=== PATIENT | female | born 1995 | race Caucasian/White ===

== ENCOUNTER 2021-01-18 11:49 | Outpatient (CLI) | payer OTHER, SELFPAY ==
[2021-01-18 12:04] LABS: Basophils Percent Auto 0.3 % (0.2-1.2); Eosinophils Absolute Auto 0.2 K/mm3 (0-0.3); Eosinophils Percent Auto 2.6 % (0-4.4); Hematocrit 40.5 % (37.0-47.0); Hemoglobin 12.5 g/dL (12.0-15.0); Immature Granulocyte Absolute 0.02 K/mm3 (0.00-0.031); Immature Granulocyte Percent A 0.2 % (0-0.5); Lymphocytes Absolute Auto 1.96 K/mm3 (0.9-3.2); Lymphocytes Percent Auto 22.3 % (18.3-44.2); Mean Corpuscular HGB Conc 30.9 g/dl (32-36); Mean Corpuscular Hemoglobin 24.4 pg (26-34); Mean Corpuscular Volume 79.1 fl (80-100); Monocytes Absolute Auto 0.4 K/mm3 (0.1-0.6); Monocytes Percent Auto 4.8 % (2.6-8.5); Neutrophils Absolute Auto 6.1 K/mm3 (1.3-6.7); Neutrophils Percent Auto 69.8 % (45.5-73.1); Platelet Count Result 492 k/mm3 (150-375); Red Blood Count 5.12 M/mm3 (4.2-5.4); Red Cell Distribution Width 15.8 % (11.5-14.5); White Blood Count 8.8 K/mm3 (4.5-10.0)
[2021-01-18 14:33] LABS: Alanine Aminotransferase 40 U/L (4-35); Albumin Level 4.9 g/dL (3.5-5.1); Alkaline Phosphatase 54 U/L (38-126); Anion Gap 8 mmol/L (8-16); Aspartate Amino Transferase 33 U/L (14-36); Bilirubin,Total 0.3 mg/dL (0.2-1.3); Blood Urea Nitrogen 10 mg/dL (7-17); Calcium 9.8 mg/dL (8.4-10.2); Carbon Dioxide 27 mmol/L (22-30); Chloride 104 mmol/L (98-107); Estimated Glomerular Filt Rate > 60; Glucose 106 mg/dL (65-105); Iron 41 ug/dL (37-170); Lactate Dehydrogenase 421 U/L (313-618); Potassium 5.2 mmol/L (3.4-5.0); Sodium 139 mmol/L (137-145)
[2021-01-18 14:42] LABS: Percent Iron Saturation 8 % (20-50)
[2021-01-18 15:38] LABS: Folic Acid 4.9 ng/mL (2.76->20)
== END 2021-01-18 11:50 | disposition home or self-care (01) ==
LOC: ANHLAB 11:51
PROVIDERS: PCP Nurse Practitioner Family; Visit Provider Internal Medicine Hematology & Oncology
DX: D50.0 Iron deficiency anemia secondary to blood loss (chronic) (principal)
CPT/HCPCS: 36415; 80053; 82607; 82728; 82746; 83540; 83550; 83615; 85025

== ENCOUNTER 2021-02-08 22:29 | Emergency (ER) | payer OTHER, SELFPAY ==
--- NOTE | ~2021-02-08 | XR_ITS ---
EXAMINATION: XR chest 2V DATE: 02/08/2021 22:49 INDICATION: Midsternal chest pain. TECHNIQUE: Frontal and lateral views of the chest were obtained. COMPARISON: Chest 2 views 08/20/2019 FINDINGS: The chest demonstrates clear lungs without pneumonia, pleural effusion, or pneumothorax. Th e heart size is normal. IMPRESSION: 1. No acute cardiopulmonary disease. Reviewed, dictated and finalized at location A.
[2021-02-08 22:30] VITALS: BP 179/93; PULSE 80; RESP 20; TEMP 36.3; O2SAT 100
--- NOTE | 2021-02-08 22:34 | ECG_ITS ---
Measurements Intervals [place] Rate: 81 P: 19 MT: 152 QRS: 19 QRSD: 85 T: 19 QT: 352 QTc: 409 Interpretive Statements SINUS RHYTHM BASELINE ARTIFACT- I, I NORMAL ECG Electronically Signed On 02-09-2021 6:59:58 CDT by Yazan House D.O.
[2021-02-08 22:49] LABS: Basophils Percent Auto 0.4 % (0.2-1.2); Eosinophils Absolute Auto 0.3 K/mm3 (0-0.3); Eosinophils Percent Auto 2.6 % (0-4.4); Hematocrit 39.3 % (37.0-47.0); Hemoglobin 12.1 g/dL (12.0-15.0); Immature Granulocyte Absolute 0.04 K/mm3 (0.00-0.031); Immature Granulocyte Percent A 0.4 % (0-0.5); Lymphocytes Absolute Auto 3.64 K/mm3 (0.9-3.2); Mean Corpuscular HGB Conc 30.8 g/dl (32-36); Mean Corpuscular Hemoglobin 24.7 pg (26-34); Mean Corpuscular Volume 80.4 fl (80-100); Mean Platelet Volume 8.8 fl (7.4-10.4); Monocytes Absolute Auto 0.6 K/mm3 (0.1-0.6); Monocytes Percent Auto 6.2 % (2.6-8.5); Neutrophils Absolute Auto 5.2 K/mm3 (1.3-6.7); Neutrophils Percent Auto 53.4 % (45.5-73.1); Platelet Count Result 435 k/mm3 (150-375); Red Blood Count 4.89 M/mm3 (4.2-5.4); Red Cell Distribution Width 15.2 % (11.5-14.5); White Blood Count 9.8 K/mm3 (4.5-10.0)
[2021-02-08 22:59] LABS: Prothrombin Time 13.8 Seconds (11.1-14.7)
[2021-02-08 23:00] LABS: Anion Gap 6 mmol/L (8-16); Blood Urea Nitrogen 9 mg/dL (7-17); Calcium 9.2 mg/dL (8.4-10.2); Carbon Dioxide 30 mmol/L (22-30); Chloride 103 mmol/L (98-107); Estimated CRCL calculation 171 ml/min; Estimated Glomerular Filt Rate > 60; Glucose 92 mg/dL (65-105); Partial Thromboplastin Time 27.7 SECONDS (22.3-36.8); Potassium 3.7 mmol/L (3.4-5.0); Sodium 139 mmol/L (137-145)
[2021-02-08 23:12] LABS: Troponin I < 0.012 ng/mL (0.000-0.034)
[2021-02-08 23:20] VITALS: BP 155/80; PULSE 85; RESP 16; O2SAT 100
--- NOTE | 2021-02-08 23:47 | ED.GENADULT ---
HPI - General Adult General Chief complaint: Chest Pain <Arely Valdivia MD - Last Filed: 02/09/21 16:59> Stated complaint: chest pain/upper back/neck pain <Arely Valdivia MD - Last Filed: 02/09/21 16:59> Time Seen by Provider: 02/08/21 23:33 <Arely Valdivia MD - Last Filed: 02/09/21 16:59> Source: patient <Arely Valdivia MD - Last Filed: 02/09/21 16:59> History of Present Illness HPI narrative: Patient is a 26 y/o female complaining of mid sternal and right sided chest pain starting 5-6 hours ago. She describes her pain as a dull pain with occasional sharp sensation. There is some pain radiation to her right back. She rates her pain as 5/10. There is no alleviating or exacerbating factor. She has some nausea, but no vomiting. <Arely Valdivia MD - Last Filed: 02/09/21 16:59> Related Data Allergies/adverse reactions: Allergies Allergy/AdvReac Type Severity Reaction Status Date / Time sulfamethoxazole Allergy Intermediate BLISTERS Verified 02/08/21 22:43 IN MOUTH trimethoprim Allergy Intermediate BLISTERS Verified 02/08/21 22:43 IN MOUTH <Arely Valdivia MD - Last Filed: 02/09/21 16:59> Review of Systems Constitutional: Constitutional: Denies chills, Denies fever(s), Denies headache(s) and Denies weakness <Arely Valdivia MD - Last Filed: 02/09/21 16:59> Eyes: Eyes: Denies blurry vision <Arely Valdivia MD - Last Filed: 02/09/21 16:59> ENT: Denies headache(s) and Denies neck pain <Arely Valdivia MD - Last Filed: 02/09/21 16:59> Cardiovascular: Cardiovascular: Reports chest pain and Denies dyspnea <Arely Valdivia MD - Last Filed: 02/09/21 16:59> Respiratory: Respiratory: Denies cough and Denies dyspnea <Arely Valdivia MD - Last Filed: 02/09/21 16:59> Gastrointestinal: Gastrointestinal: Denies abdominal pain, Denies diarrhea, Reports nausea and Denies vomiting <Arely Valdivia MD - Last Filed: 02/09/21 16:59> Genitourinary: Genitourinary: Denies hematuria and Denies dysuria <Arely Valdivia MD - Last Filed: 02/09/21 16:59> Musculoskeletal: Musculoskeletal: Denies back pain and Denies neck pain <Arely Valdivia MD - Last Filed: 02/09/21 16:59> Neurologic: Denies headache(s) and Denies weakness <Arely Valdivia MD - Last Filed: 02/09/21 16:59> [facility] Past Medical History Medical History: Medical History Anemia receives iron infusions Anxiety Asthma Depression Prolapsed bladder UTI (urinary tract infection) <Arely Valdivia MD - Last Filed: 02/09/21 16:59> Surgical History Surgical History: Surgical History Delivery by section H/O dilation and curettage Hx of section Hx of tubal ligation <Arely Valdivia MD - Last Filed: 02/09/21 16:59> Social History Social History: Social History Smoking status: Never smoker Gender identity (if verbalized by the patient): Female <Arely Valdivai MD - Last Filed: 02/09/21 16:59> Exam Const: General: no acute distress and well developed <Arely Valdivia MD - Last Filed: 02/09/21 16:59> Orientation/consciousness: oriented to person, oriented to place, oriented to time and patient oriented x3 <Arely Valdivia MD - Last Filed: 02/09/21 16:59> HENMT: Head: normocephalic <Arely Valdivia MD - Last Filed: 02/09/21 16:59> Ears: external ears normal <Arely Valdivia MD - Last Filed: 02/09/21 16:59> General nose exam: Normal external nose present <Arely Valdivia MD - Last Filed: 02/09/21 16:59> Eyes: General: appearance normal, both eyes and all related structures <Arely Valdivia MD - Last Filed: 02/09/21 16:59> Conjunctivae: conjunctivae normal <Arely Valdivia MD - Last Filed: 02/09/21 16:59> Neck: Neck: normal visual inspection and full ROM <Arely Valdivia MD - Last Filed: 02/09/21 16:59> Chest: Chest palpation & inspection: pia
[2021-02-09 00:43] LABS: D Dimer < 0.22 ug/mL (<0.48)
[2021-02-09 01:21] LABS: Add Urine Microscopic? NO; Appearance Urine Clear (Clear); Bilirubin Urine Negative (Negative); Blood Urine Negative (Negative); Color Urine Yellow (Yellow); Glucose Urine UA Negative (Negative); Ketones Urine Negative (Negative); Leukocyte Esterase Ur Negative LEU/UL (Negative); Nitrate Urine Negative (Negative); Protein Urine Negative (Negative); Urobilinogen Urine Negative mg/dL (<2.0)
[2021-02-09 01:49] VITALS: BP 135/77; PULSE 74; RESP 18; O2SAT 100
[2021-02-09 02:37] LABS: Troponin I < 0.012 ng/mL (0.000-0.034)
[2021-02-09 03:08] VITALS: BP 132/60; PULSE 74; RESP 16; O2SAT 100
== END 2021-02-09 03:07 | disposition home or self-care (01) ==
PROVIDERS: Emergency Medicine; Emergency Provider Emergency Medicine; PCP Nurse Practitioner Family
DX: R07.2 Precordial pain (principal); D64.9 Anemia, unspecified; J45.909 Unspecified asthma, uncomplicated; N81.10 Cystocele, unspecified; Z87.440 Personal history of urinary (tract) infections
CPT/HCPCS: 36415; 71046; 80048; 81003; 81025; 84484; 85025; 85380; 85610; 85730; 93005; 99284

== ENCOUNTER 2021-04-01 17:38 | Emergency (ER) | payer OTHER, SELFPAY ==
--- NOTE | ~2021-04-01 | XR_ITS ---
EXAMINATION: XR chest 1V portable DATE: 04/01/2021 18:38 INDICATION: Dizziness. Asthma. TECHNIQUE: A single frontal view of the chest was obtained. COMPARISON: Chest 2 views 02/08/2021, chest CT 08/20/2019 FINDINGS: The chest demonstrates clear lungs without pneumonia, pleural effusion, or pneumothorax. Th e heart size is normal. IMPRESSION: 1. No acute cardiopulmonary disease. Reviewed, dictated and finalized at location A.
[2021-04-01 17:40] VITALS: BP 182/99; PULSE 97; RESP 20; TEMP 37.3; O2SAT 100
[2021-04-01 18:07] VITALS: BP 182/120; PULSE 95; RESP 18; O2SAT 100
--- NOTE | 2021-04-01 18:22 | ECG_ITS ---
Measurements Intervals [place] Rate: 83 P: 0 ND: 140 QRS: 11 QRSD: 93 T: 5 QT: 334 QTc: 393 Interpretive Statements SINUS RHYTHM WITH SINUS ARRHYTHMIA VOLTAGE CRITERIA FOR LVH BORDERLINE T WAVE ABNORMALITY- INFERIOR LEADS BORDERLINE ECG Electronically Signed On 04-01-2021 20:10:31 CDT by Yazan House D.O.
[2021-04-01 18:28] VITALS: BP 163/91; PULSE 99; RESP 16; O2SAT 98
[2021-04-01] MEDS: LORazepam (*CRX) 0.5 MG TABLET 1 MG PO (18:35)
--- NOTE | 2021-04-01 18:56 | ED.GENADULT ---
HPI - General Adult General Chief complaint: Recheck/Abnormal Lab/Rx Stated complaint: htn Time Seen by Provider: 04/01/21 18:08 Source: patient, family and RN notes reviewed Mode of arrival: ambulatory Limitations: no limitations History of Present Illness HPI narrative: Patient is 26 years old white female came to the emergency room with her mother complaining of elevated blood pressure. Patient went for urologist today for bladder prolapse management, blood pressure was found to be elevated, patient left his office and went to her family physician and the blood pressure was running at 150/95 and was scheduled for follow-up tomorrow. Patient left his office and went to [facility] and check her blood pressure 4 times and the highest number was 190/100, call 911 and the ambulance took her to [facility], for the long waiting list patient got tired and came to [facility]. History of pelvic congestion syndrome, bladder prolapse, gestational hypertension. Patient also morbidly obese. Patient denies any fever, chills, nausea, vomiting, chest pain, shortness of breath, headache, lightheadedness or dizziness. Patient reports a lot of stress lately that she knew that she have pelvic congestion syndrome 1 week ago. Related Data Home Medications Medication Instructions Recorded Confirmed ferrous gluconate mg 04/01/21 Allergies Allergy/AdvReac Type Severity Reaction Status Date / Time sulfamethoxazole Allergy Intermediate BLISTERS Verified 04/01/21 18:06 IN MOUTH trimethoprim Allergy Intermediate BLISTERS Verified 04/01/21 18:06 IN MOUTH Review of Systems Review of Systems: Narrative: CONSTITUTIONAL: Denies fever, chills, or sweats. EYES: Denies visual changes, redness, or discharge. ENT: Denies rhinorrhea, congestion, sore throat, or otalgia. CARDIOVASCULAR: Denies chest pain, palpitations, or edema. RESPIRATORY: Denies cough or dyspnea. GASTROINTESTINAL: Denies abdominal pain, nausea, vomiting, or diarrhea. GENITOURINARY: Denies dysuria or hematuria. SKIN: Denies rash or itching. MUSCULOSKELETAL: Denies back pain, joint pain, or myalgia. NEUROLOGIC: Denies headache, numbness, or weakness. PSYCHIATRIC: Denies anxiety or depression. [facility] Past Medical History Medical History Anemia receives iron infusions Anxiety Asthma Depression Prolapsed bladder UTI (urinary tract infection) Surgical History Surgical History Delivery by section H/O dilation and curettage Hx of section Hx of tubal ligation Social History Social History Smoking status: Never smoker Gender identity (if verbalized by the patient): Female Exam Narrative: Exam Narrative: General appearance: Well-developed, well-nourished, morbidly obese Skin: Normal color Head: Normocephalic, nontraumatic Eyes: Clear conjunctiva ENT: Oropharynx normal, ears normal, nose normal Neck: Supple, nontender Chest and respiratory: Airway patent, no respiratory distress, no accessory muscle use Heart: Regular rate/rhythm Abdomen: Soft, nontender, no organomegaly, quiet bowel sounds Vascular: Normal peripheral pulses, normal capillary refill. Musculoskeletal: Normal range of motion, nontender back Neurologic: Alert and oriented ?3, [employer] is normal as tested, no gross motor deficit Course Course Emergency Course: Stable Vital Signs Vital signs: Vital Signs Temperature 37.3 C 04/01/21 17:40 Pulse Rate 97 04/01/21 17:40 Respiratory Rate 20 04/01/21 17:40 Blood Pressure 182/99 H 04/01/21 1
[2021-04-01 19:03] LABS: Basophils Percent Auto 0.2 % (0.2-1.2); Eosinophils Absolute Auto 0.1 K/mm3 (0-0.3); Eosinophils Percent Auto 0.5 % (0-4.4); Hemoglobin 12.3 g/dL (12.0-15.0); Immature Granulocyte Absolute 0.03 K/mm3 (0.00-0.031); Immature Granulocyte Percent A 0.2 % (0-0.5); Lymphocytes Absolute Auto 1.85 K/mm3 (0.9-3.2); Lymphocytes Percent Auto 15.3 % (18.3-44.2); Mean Corpuscular HGB Conc 31.5 g/dl (32-36); Mean Corpuscular Hemoglobin 25.2 pg (26-34); Mean Corpuscular Volume 79.9 fl (80-100); Mean Platelet Volume 9.2 fl (7.4-10.4); Monocytes Absolute Auto 0.4 K/mm3 (0.1-0.6); Monocytes Percent Auto 3.1 % (2.6-8.5); Neutrophils Absolute Auto 9.8 K/mm3 (1.3-6.7); Neutrophils Percent Auto 80.7 % (45.5-73.1); Platelet Count Result 500 k/mm3 (150-375); Red Blood Count 4.88 M/mm3 (4.2-5.4); Red Cell Distribution Width 14.7 % (11.5-14.5); White Blood Count 12.1 K/mm3 (4.5-10.0)
[2021-04-01 19:13] LABS: Alanine Aminotransferase 43 U/L (4-35); Albumin Level 4.8 g/dL (3.5-5.1); Alkaline Phosphatase 52 U/L (38-126); Anion Gap 10 mmol/L (8-16); Aspartate Amino Transferase 39 U/L (14-36); Bilirubin,Total 0.4 mg/dL (0.2-1.3); Blood Urea Nitrogen 8 mg/dL (7-17); Calcium 9.7 mg/dL (8.4-10.2); Carbon Dioxide 25 mmol/L (22-30); Chloride 104 mmol/L (98-107); Estimated CRCL calculation 147 ml/min; Estimated Glomerular Filt Rate > 60; Glucose 105 mg/dL (65-105); Sodium 139 mmol/L (137-145)
[2021-04-01 19:20] LABS: Add Urine Microscopic? NO; Appearance Urine Clear (Clear); Bilirubin Urine Negative (Negative); Blood Urine Negative (Negative); Color Urine Straw (Yellow); Glucose Urine UA Negative (Negative); Ketones Urine Negative (Negative); Leukocyte Esterase Ur Negative LEU/UL (Negative); Mucus Urine Rare /lpf; Nitrate Urine Negative (Negative); Protein Urine Negative (Negative); Specific Grav Ur 1.008 (1.001-1.035); Squamous Epithelial Cell Urine Moderate /hpf (Few); Urobilinogen Urine Negative mg/dL (<2.0); WBC Urine 0-3 /hpf
[2021-04-01 19:26] VITALS: BP 148/93; PULSE 100; RESP 18; O2SAT 99
[2021-04-01 21:14] VITALS: BP 145/78; PULSE 89; RESP 18; O2SAT 100
== END 2021-04-01 21:15 | disposition home or self-care (01) ==
PROVIDERS: Emergency Medicine; Emergency Provider Emergency Medicine; PCP Nurse Practitioner Family
DX: I10 Essential (primary) hypertension (principal)
CPT/HCPCS: 36415; 71045; 80053; 81003; 81025; 85025; 93005; 99283; A9270

== ENCOUNTER 2021-05-03 11:41 | Outpatient (CLI) | payer OTHER, SELFPAY ==
[2021-05-03 11:58] LABS: Basophils Percent Auto 0.2 % (0.2-1.2); Eosinophils Absolute Auto 0.2 K/mm3 (0-0.3); Eosinophils Percent Auto 1.9 % (0-4.4); Hematocrit 38.3 % (37.0-47.0); Hemoglobin 12.3 g/dL (12.0-15.0); Immature Granulocyte Absolute 0.03 K/mm3 (0.00-0.031); Immature Granulocyte Percent A 0.3 % (0-0.5); Lymphocytes Absolute Auto 2.11 K/mm3 (0.9-3.2); Lymphocytes Percent Auto 21.5 % (18.3-44.2); Mean Corpuscular HGB Conc 32.1 g/dl (32-36); Mean Corpuscular Hemoglobin 25.5 pg (26-34); Mean Corpuscular Volume 79.3 fl (80-100); Monocytes Absolute Auto 0.5 K/mm3 (0.1-0.6); Monocytes Percent Auto 5.1 % (2.6-8.5); Platelet Count Result 445 k/mm3 (150-375); Red Blood Count 4.83 M/mm3 (4.2-5.4); White Blood Count 9.8 K/mm3 (4.5-10.0)
[2021-05-03 13:52] LABS: Iron 34 ug/dL (37-170)
[2021-05-03 14:05] LABS: Percent Iron Saturation 7 % (20-50)
[2021-05-03 14:58] LABS: Folic Acid 6.5 ng/mL (2.76->20)
== END 2021-05-03 11:42 | disposition home or self-care (01) ==
PROVIDERS: PCP Nurse Practitioner Family; Visit Provider Internal Medicine Hematology & Oncology
DX: D50.0 Iron deficiency anemia secondary to blood loss (chronic) (principal)
CPT/HCPCS: 36415; 82607; 82728; 82746; 83540; 83550; 85025

== ENCOUNTER 2021-11-01 15:31 | Outpatient (CLI) | payer OTHER, SELFPAY ==
[2021-11-01 15:57] LABS: Basophils Percent Auto 0.2 % (0.2-1.2); Eosinophils Absolute Auto 0.2 K/mm3 (0-0.3); Eosinophils Percent Auto 2.2 % (0-4.4); Hematocrit 37.4 % (37.0-47.0); Hemoglobin 11.3 g/dL (12.0-15.0); Immature Granulocyte Absolute 0.02 K/mm3 (0.00-0.031); Immature Granulocyte Percent A 0.2 % (0-0.5); Lymphocytes Absolute Auto 1.92 K/mm3 (0.9-3.2); Lymphocytes Percent Auto 23.7 % (18.3-44.2); Mean Corpuscular HGB Conc 30.2 g/dl (32-36); Mean Corpuscular Hemoglobin 23.9 pg (26-34); Mean Corpuscular Volume 79.2 fl (80-100); Mean Platelet Volume 8.8 fl (7.4-10.4); Monocytes Absolute Auto 0.4 K/mm3 (0.1-0.6); Monocytes Percent Auto 5.4 % (2.6-8.5); Neutrophils Absolute Auto 5.5 K/mm3 (1.3-6.7); Neutrophils Percent Auto 68.3 % (45.5-73.1); Platelet Count Result 519 k/mm3 (150-375); Red Blood Count 4.72 M/mm3 (4.2-5.4); Red Cell Distribution Width 14.1 % (11.5-14.5); White Blood Count 8.1 K/mm3 (4.5-10.0)
[2021-11-01 16:21] LABS: Alanine Aminotransferase 30 U/L (4-35); Albumin Level 4.7 g/dL (3.5-5.1); Alkaline Phosphatase 60 U/L (38-126); Anion Gap 9 mmol/L (8-16); Aspartate Amino Transferase 28 U/L (14-36); Bilirubin,Total 0.3 mg/dL (0.2-1.3); Blood Urea Nitrogen 8 mg/dL (7-17); Calcium 9.6 mg/dL (8.4-10.2); Carbon Dioxide 25 mmol/L (22-30); Chloride 104 mmol/L (98-107); Estimated Glomerular Filt Rate > 60; Glucose 116 mg/dL (65-110); Lactate Dehydrogenase 344 U/L (313-618); Potassium 4.4 mmol/L (3.4-5.0); Sodium 138 mmol/L (137-145)
[2021-11-01 16:33] LABS: Iron 30 ug/dL (37-170)
[2021-11-01 16:44] LABS: Percent Iron Saturation 6 % (20-50)
[2021-11-01 17:10] LABS: Ferritin 8.03 ng/mL (6.24-137)
[2021-11-01 17:27] LABS: Folic Acid 9.5 ng/mL (2.76->20)
== END 2021-11-01 15:32 | disposition home or self-care (01) ==
LOC: ANHLAB 15:34
PROVIDERS: Visit Provider Internal Medicine Hematology & Oncology
DX: D50.0 Iron deficiency anemia secondary to blood loss (chronic) (principal)
CPT/HCPCS: 36415; 80053; 82607; 82728; 82746; 83540; 83550; 83615; 85025

== ENCOUNTER 2022-01-31 15:16 | Outpatient (CLI) | payer OTHER, SELFPAY ==
[2022-01-31 15:31] LABS: Basophils Percent Auto 0.2 % (0.2-1.2); Eosinophils Absolute Auto 0.4 K/mm3 (0-0.3); Eosinophils Percent Auto 3.5 % (0-4.4); Hematocrit 43.7 % (37.0-47.0); Hemoglobin 13.3 g/dL (12.0-15.0); Immature Granulocyte Absolute 0.03 K/mm3 (0.00-0.031); Immature Granulocyte Percent A 0.3 % (0-0.5); Lymphocytes Absolute Auto 2.27 K/mm3 (0.9-3.2); Lymphocytes Percent Auto 21.9 % (18.3-44.2); Mean Corpuscular HGB Conc 30.4 g/dl (32-36); Mean Corpuscular Hemoglobin 25.4 pg (26-34); Mean Corpuscular Volume 83.4 fl (80-100); Mean Platelet Volume 9.2 fl (7.4-10.4); Monocytes Absolute Auto 0.5 K/mm3 (0.1-0.6); Monocytes Percent Auto 4.3 % (2.6-8.5); Neutrophils Absolute Auto 7.3 K/mm3 (1.3-6.7); Neutrophils Percent Auto 69.8 % (45.5-73.1); Platelet Count Result 461 k/mm3 (150-375); Red Blood Count 5.24 M/mm3 (4.2-5.4); Red Cell Distribution Width 15.7 % (11.5-14.5); White Blood Count 10.4 K/mm3 (4.5-10.0)
[2022-01-31 16:39] LABS: Iron 62 ug/dL (37-170)
[2022-01-31 16:48] LABS: Percent Iron Saturation 14 % (20-50)
[2022-01-31 17:48] LABS: Folic Acid 6.9 ng/mL (2.76->20)
== END 2022-01-31 15:17 | disposition home or self-care (01) ==
LOC: ANHLAB 15:17
PROVIDERS: Visit Provider Internal Medicine Hematology & Oncology
DX: D50.0 Iron deficiency anemia secondary to blood loss (chronic) (principal)
CPT/HCPCS: 36415; 82607; 82728; 82746; 83540; 83550; 85025

== ENCOUNTER 2022-06-15 07:28 | Emergency (ER) | payer OTHER, SELFPAY ==
--- NOTE | ~2022-06-15 | CT_ITS ---
EXAMINATION: CT abdomen pelvis w con DATE: 06/15/2022 08:43 INDICATION: Lower abdominal pain and fever TECHNIQUE: Computed tomography (CT) of the abdomen and pelvis was performed with 100 mL Omnipaque-350 intravenous contrast. Automated exposure control and iterative reconstruction technique were employe d. The dose-length product was 1589.99 mGy-cm. COMPARISON: None FINDINGS: Lung bases are clear. Heart size is normal. No pericardial or pleural effusion. Diffuse hepatic steat osis with additional focal fat along the ligamentum teres. Gallbladder, pancreas, spleen, bilateral a drenal glands and kidneys are normal. Small fat-containing umbilical hernia. Bowels including the jackie endix are normal. 2.6 cm right adnexal cyst. There appear to be tubal ligation clips along the anteri or and posterior margins of the left side of the anteverted uterus. Bladder is normal. Possible murali loreta section scar along the anterior lower uterine segment. No free intraperitoneal gas or fluid. No p athologically enlarged abdominal or pelvic lymphadenopathy. IMPRESSION: 1. 2.6 cm right adnexal cyst. Of note there appears to be displacement of the right-sided tubal ligat ion clip which would reintroduce ectopic to a possible differential. 2. No other acute intra-abdominal/pelvic process. Specifically the appendix is normal. Reviewed, dictated and finalized at location A. IMPRESSION: 1. 2.6 cm right adnexal cyst. Of note there appears to be displacement of the r ight-sided tubal ligation clip which would reintroduce ectopic to a p ossible differential. 2. No other acute intra-abdominal/pelvic process. Specifically the appendix is normal.
[2022-06-15 07:43] VITALS: BP 150/87; PULSE 117; RESP 14; TEMP 38.3; O2SAT 96
--- NOTE | 2022-06-15 07:56 | ED.GENADULT ---
HPI - General Adult General Chief complaint: Abdominal Pain Stated complaint: High Fever, abd pressure, lower back hurts Time Seen by Provider: 06/15/22 07:30 History of Present Illness HPI narrative: 27-year-old female presenting to the emergency department for evaluation of lower back pain with associated lower abdominal pressure. Patient describes nausea as well. Patient did have a fever of 103 this morning took Tylenol and fever is 100.9 upon arrival to the emergency department. Patient denies any pain with urination but does describe increased pressure. Patient denies possibility of due to her fallopian tubes being tied. Patient denies any vaginal bleeding vaginal discharge. Related Data Home Medications Medication Instructions Recorded Confirmed ferrous gluconate 324 mg (38 mg mg 04/01/21 iron) tablet Allergies Allergy/AdvReac Type Severity Reaction Status Date / Time sulfamethoxazole Allergy Intermediate BLISTERS Verified 06/15/22 11:20 IN MOUTH trimethoprim Allergy Intermediate BLISTERS Verified 06/15/22 11:20 IN MOUTH Review of Systems Review of Systems: CONSTITUTIONAL: See HPI EYES: Denies visual changes, redness, or discharge. ENT: Denies rhinorrhea, congestion, sore throat, or otalgia. CARDIOVASCULAR: Denies chest pain, palpitations, or edema. RESPIRATORY: Denies cough or dyspnea. GASTROINTESTINAL: Low back pain, lower abdominal pressure GENITOURINARY: Denies dysuria or hematuria. SKIN: Denies rash or itching. MUSCULOSKELETAL: Denies back pain, joint pain, or myalgia. NEUROLOGIC: Denies headache, numbness, or weakness. [facility] Past Medical History Medical History Anemia receives iron infusions Anxiety Asthma Depression Prolapsed bladder UTI (urinary tract infection) Surgical History Surgical History Delivery by section H/O dilation and curettage Hx of section Hx of tubal ligation Social History Social History (System 06/15/22 @ 11:20 by Valencia Youngblood) Smoking status: Never smoker Gender identity (if verbalized by the patient): Female Exam Narrative: APPEARANCE: Well appearing, no pain, no distress, well-nourished. HEAD: normocephalic, atraumatic. EYES: PERRLA/EOMI, conjunctivae clear. NOSE: Normal no drainage NECK: Supple. No adenopathy, no masses. RESPIRATORY: Airway patent, respirations nonlabored. Clear to auscultation bilaterally, no rales, rhonchi, wheezing. CARDIOVASCULAR: Regular rate and rhythm without murmurs rubs or gallops. ABDOMINAL: Soft, lower abdominal tenderness, nondistended, normal bowel sounds MUSCULOSKELETAL: Moves all extremities. Strength/ROM intact, No edema, No calf tenderness. NEURO: Alert. Cranial nerves II through XII intact. Grossly intact SKIN: Warm, dry. Normal Color Course Course Emergency Course: Patient did test positive for COVID. Patient does feel improved with treatment. Patient had incidental finding on a CT scan showing concern for placement of the fallopian tube clip. Patient was encouraged to follow-up with [facility] for this. Patient's test was negative today. Patient denies any shortness of breath. Patient did have a low-grade fever but no leukocytosis. Patient did have some lymphopenia. No significant abnormalities on the CMP. UA showed no evidence of urinary tract infection. Patient's COVID test was positive. Vital Signs Vital signs: Vital Signs Temperature 100.9 F H 06/15/22 07:43 Pulse Rate 117 H 06/15/22 07:43 Respiratory Rate 14 06/15/22 07:43 Blood Pressure 150/87 H 06/15/22 07:43 Pulse Oximetry 96 06/15/22 07:43 Oxygen Delivery Room Air 06/15/22 07:43 Temperature 100.9 F H 06/15/22 07:43 Pulse Rate 110 H 06/15/22 10:00 Respiratory Rate 16 06/15/22 10:00 Blood Pressure 135/91 H 06/15/22 10:00 Pulse Oximetry 98 06/15/22 10:00 Oxyge
[2022-06-15 08:03] LABS: Appearance Urine Clear (Clear); Bilirubin Urine Negative (Negative); Blood Urine Negative (Negative); Color Urine Yellow (Yellow); Glucose Urine UA Negative (Negative); Ketones Urine Negative (Negative); Leukocyte Esterase Ur Negative LEU/UL (Negative); Nitrate Urine Negative (Negative); Protein Urine Negative (Negative); Specific Grav Ur 1.015 (1.001-1.035); Urobilinogen Urine 0.2 mg/dL (<2.0); pH Urine 8.5 (5.0-9.0)
[2022-06-15 08:09] LABS: Add Urine Microscopic? NO
[2022-06-15 08:13] LABS: Basophils Percent Auto 0.2 % (0.2-1.2); Eosinophils Absolute Auto 0.1 K/mm3 (0-0.3); Eosinophils Percent Auto 1.5 % (0-4.4); Hematocrit 37.9 % (37.0-47.0); Hemoglobin 12.2 g/dL (12.0-15.0); Immature Granulocyte Absolute 0.02 K/mm3 (0.00-0.031); Immature Granulocyte Percent A 0.3 % (0-0.5); Lymphocytes Percent Auto 6.7 % (18.3-44.2); Mean Corpuscular HGB Conc 32.2 g/dl (32-36); Mean Corpuscular Hemoglobin 27.2 pg (26-34); Mean Corpuscular Volume 84.4 fl (80-100); Mean Platelet Volume 9.1 fl (7.4-10.4); Monocytes Absolute Auto 0.5 K/mm3 (0.1-0.6); Monocytes Percent Auto 7.5 % (2.6-8.5); Neutrophils Percent Auto 83.8 % (45.5-73.1); Platelet Count Result 353 k/mm3 (150-375); Red Blood Count 4.49 M/mm3 (4.2-5.4); Red Cell Distribution Width 13.4 % (11.5-14.5)
[2022-06-15 08:22] LABS: Alanine Aminotransferase 45 U/L (6-35); Albumin Level 4.7 g/dL (3.5-5.1); Alkaline Phosphatase 50 U/L (38-126); Anion Gap 11 mmol/L (8-16); Aspartate Amino Transferase 36 U/L (14-36); Bilirubin,Total 0.6 mg/dL (0.2-1.3); Blood Urea Nitrogen 6 mg/dL (7-17); Carbon Dioxide 24 mmol/L (22-30); Chloride 102 mmol/L (98-107); Estimated CRCL calculation 140 ml/min; Estimated Glomerular Filt Rate > 60; Glucose 108 mg/dL (65-110); Lipase 20 U/L (23-300); Potassium 3.8 mmol/L (3.4-5.0); Sodium 137 mmol/L (137-145)
[2022-06-15 08:25] VITALS: BP 133/71; PULSE 110; RESP 19; O2SAT 97
[2022-06-15] MEDS: HYDROmorphone HCL INJ (*CRX) 1 MG/ML SYR 0.5 MG IV PUSH (08:25)
[2022-06-15] MEDS: SODIUM CHLORIDE 0.9% IV 1,000 ML 999 ML IV CONT (08:26)
[2022-06-15] MEDS: ONDANSETRON INJ 4 MG/2 ML VIAL IV PUSH (08:26)
[2022-06-15 08:31] VITALS: BP 143/74; PULSE 109; RESP 16; O2SAT 94
[2022-06-15 08:38] LABS: SPREG INTERNAL CONTROL Positive; Serum Qual hCG Negative
[2022-06-15 09:00] LABS: SARS-CoV-2 RNA PCR Positive
[2022-06-15 10:00] VITALS: BP 135/91; PULSE 110; RESP 16; O2SAT 98
== END 2022-06-15 10:00 | disposition home or self-care (01) ==
PROVIDERS: Emergency Medicine; Emergency Provider Emergency Medicine; PCP Nurse Practitioner Family
DX: U07.1 COVID-19 (principal); R10.30 Lower abdominal pain, unspecified; D64.9 Anemia, unspecified; J45.909 Unspecified asthma, uncomplicated; Z87.440 Personal history of urinary (tract) infections
CPT/HCPCS: 36415; 74177; 80053; 81003; 81025; 83690; 84703; 85025; 96361; 96374; 96375; 99284; C9803; J1170; J2405; J7030; Q9967; U0003; U0005

== ENCOUNTER 2022-07-14 12:43 | Outpatient (CLI) | payer OTHER, SELFPAY ==
[2022-07-14 13:07] LABS: Basophils Percent Auto 0.4 % (0.2-1.2); Eosinophils Absolute Auto 0.1 K/mm3 (0-0.3); Eosinophils Percent Auto 2.9 % (0-4.4); Hematocrit 35.1 % (37.0-47.0); Immature Granulocyte Absolute 0.01 K/mm3 (0.00-0.031); Immature Granulocyte Percent A 0.2 % (0-0.5); Lymphocytes Absolute Auto 1.84 K/mm3 (0.9-3.2); Lymphocytes Percent Auto 37.7 % (18.3-44.2); Mean Corpuscular HGB Conc 31.3 g/dl (32-36); Mean Corpuscular Hemoglobin 26.6 pg (26-34); Mean Platelet Volume 9.4 fl (7.4-10.4); Monocytes Absolute Auto 0.4 K/mm3 (0.1-0.6); Monocytes Percent Auto 8.8 % (2.6-8.5); Neutrophils Absolute Auto 2.4 K/mm3 (1.3-6.7); Platelet Count Result 344 k/mm3 (150-375); Red Blood Count 4.13 M/mm3 (4.2-5.4); Red Cell Distribution Width 13.2 % (11.5-14.5); White Blood Count 4.9 K/mm3 (4.5-10.0)
[2022-07-14 14:55] LABS: Iron 41 ug/dL (37-170)
[2022-07-14 15:11] LABS: Percent Iron Saturation 9 % (20-50)
[2022-07-14 16:04] LABS: Folic Acid 6.8 ng/mL (2.76->20)
== END 2022-07-14 12:44 | disposition home or self-care (01) ==
LOC: ANHLAB 12:46
PROVIDERS: PCP Nurse Practitioner Family; Visit Provider Internal Medicine Hematology & Oncology
DX: D50.0 Iron deficiency anemia secondary to blood loss (chronic) (principal)
CPT/HCPCS: 36415; 82607; 82728; 82746; 83540; 83550; 85025

== ENCOUNTER 2022-12-19 10:34 | Emergency (ER) | payer OTHER, SELFPAY ==
--- NOTE | ~2022-12-19 | CT_ITS ---
EXAMINATION: CT abdomen pelvis wo con DATE: 12/19/2022 11:59 INDICATION: Left flank pain. Burning with urination. Nausea. TECHNIQUE: Computed tomography (CT) of the abdomen and pelvis was performed without intravenous contr ast. Automated exposure control and iterative reconstruction technique were employed. The dose-length product was 1631.49 mGy-cm. COMPARISON: 06/15/2022 and 05/03/2017 FINDINGS: Likely benign 3-4 mm pleural-based left lower lobe nodule unchanged since 05/03/2017. Heart size is no rmal. No pericardial or pleural effusion. Diffuse hepatic steatosis with focal sparing along the gall bladder fossa and more focal fat at the ligamentum teres. Gallbladder, spleen, pancreas, bilateral ad renal glands and right kidney are normal. 6 mm hyperdense proteinaceous/hemorrhagic cyst at the upper pole of the left kidney. No urolithiasis or hydronephrosis. There are a few small phleboliths in the pelvis. Small fat-containing umbilical hernia. Bowels including the appendix are normal. Bladder, an teverted uterus and left ovary are normal. 1.7 cm cyst/follicle in the right ovary. No interval coffman e in a likely tubal ligation clip along side the left ovary. Again seen is displacement of a second l ikely tubal ligation clip which on CT dated 2016 was located along side the right ovary which remains unchanged from the more recent CT, positioned along the left anterior margin of the uterine fundus. No free intraperitoneal gas or fluid. No pathologically enlarged abdominal or pelvic lymphadenopathy. Mild lumbar and mild to moderate lower thoracic spondylosis. IMPRESSION: 1. No urolithiasis or acute intra-abdominal/pelvic process. 2. Chronic displacement of a right tubal ligation clip. Left-sided tubal ligation clip remains in exp ected position. 3. Small fat-containing umbilical hernia. Reviewed, dictated and finalized at location B. IMPRESSION: 1. No urolithiasis or acute intra-abdominal/pelvic process. 2. Chronic displacement of a right tubal ligation clip. Left-sided tubal ligati on clip remains in expected position. 3. Small fat-containing umbilical hernia.
--- NOTE | ~2022-12-19 | XR_ITS ---
XR chest 2V DATE: 12/19/2022 12:13 INDICATION: Cough for one week TECHNIQUE: PA and lateral views COMPARISON: 04/01/2021 portable AP chest at 1836 hours FINDINGS: Normal heart size. No hilar or mediastinal enlargement. No pulmonary infiltrate or consolid ation, pleural effusion or pulmonary vascular congestion or pneumothorax. IMPRESSION: Negative Reviewed, dictated and finalized at location A. IMPRESSION: Negative
[2022-12-19 10:35] VITALS: BP 133/85; PULSE 98; RESP 18; TEMP 36.8; O2SAT 99
[2022-12-19 11:25] LABS: Basophils Percent Auto 0.4 % (0.2-1.2); Eosinophils Absolute Auto 0.1 K/mm3 (0-0.3); Eosinophils Percent Auto 1.7 % (0-4.4); Hematocrit 37.7 % (37.0-47.0); Hemoglobin 11.8 g/dL (12.0-15.0); Immature Granulocyte Absolute 0.02 K/mm3 (0.00-0.031); Immature Granulocyte Percent A 0.3 % (0-0.5); Lymphocytes Absolute Auto 1.71 K/mm3 (0.9-3.2); Lymphocytes Percent Auto 22.5 % (18.3-44.2); Mean Corpuscular HGB Conc 31.3 g/dl (32-36); Mean Corpuscular Hemoglobin 26.2 pg (26-34); Mean Corpuscular Volume 83.6 fl (80-100); Mean Platelet Volume 8.6 fl (7.4-10.4); Monocytes Absolute Auto 0.4 K/mm3 (0.1-0.6); Monocytes Percent Auto 4.7 % (2.6-8.5); Neutrophils Absolute Auto 5.4 K/mm3 (1.3-6.7); Neutrophils Percent Auto 70.4 % (45.5-73.1); Platelet Count Result 415 k/mm3 (150-375); Red Blood Count 4.51 M/mm3 (4.2-5.4); Red Cell Distribution Width 14.1 % (11.5-14.5); White Blood Count 7.6 K/mm3 (4.5-10.0)
[2022-12-19 11:42] LABS: Alanine Aminotransferase 29 U/L (6-35); Albumin Level 4.6 g/dL (3.5-5.1); Alkaline Phosphatase 45 U/L (38-126); Anion Gap 7 mmol/L (8-16); Aspartate Amino Transferase 29 U/L (14-36); Bilirubin,Total 0.5 mg/dL (0.2-1.3); Blood Urea Nitrogen 7 mg/dL (7-17); Carbon Dioxide 28 mmol/L (22-30); Chloride 104 mmol/L (98-107); Estimated CRCL calculation 182 ml/min; Estimated Glomerular Filt Rate > 60; Glucose 112 mg/dL (65-110); Potassium 3.9 mmol/L (3.4-5.0); Sodium 139 mmol/L (137-145)
[2022-12-19 11:43] LABS: Appearance Urine Cloudy (Clear); Bacteria Urine 2+ /hpf; Bilirubin Urine Negative (Negative); Blood Urine Negative (Negative); Color Urine Yellow (Yellow); Glucose Urine UA Negative (Negative); Ketones Urine Negative (Negative); Leukocyte Esterase Ur Trace LEU/UL (Negative); Mucus Urine Present /lpf; Nitrate Urine Negative (Negative); Non Pathogenic Casts 0-2; Protein Urine Negative (Negative); Specific Grav Ur 1.017 (1.001-1.035); Squamous Epithelial Cell Urine Moderate /hpf (Few); WBC Urine 0-5 /hpf
[2022-12-19 11:44] LABS: Add Urine Microscopic? YES
--- NOTE | 2022-12-19 11:45 | ED.FEMALEGU ---
HPI - Female Genitourinary General Chief complaint: Urogenital-Female Stated complaint: kidney infection? Time Seen by Provider: 12/19/22 10:51 Source: patient Mode of arrival: ambulatory Limitations: no limitations History of Present Illness HPI Narrative: Patient is a 27-year-old female who presents to the ED with report of left flank pain and dysuria. Patient reports having pain in her left flank region for the last 2 days, in addition to dysuria, urinary frequency, urinary urgency. Denies hematuria. She does also report having some nausea and discomfort in her left lower quadrant. Denies history of kidney stones. She does report history of UTI. Denies fever, vomiting, diarrhea, constipation. Patient mentions having a cough and congestion for the past 1 week. Symptoms are improving. Family members with similar symptoms. Tested negative for COVID. Related Data Home Medications Medication Instructions Recorded Confirmed ferrous gluconate 324 mg (38 mg mg 04/01/21 iron) tablet Allergies Allergy/AdvReac Type Severity Reaction Status Date / Time sulfamethoxazole Allergy Intermediate BLISTERS Verified 12/19/22 10:37 IN MOUTH trimethoprim Allergy Intermediate BLISTERS Verified 12/19/22 10:37 IN MOUTH Review of Systems Review of Systems: CONSTITUTIONAL: Denies fever, chills, or sweats. ENT: See HPI. CARDIOVASCULAR: Denies chest pain. RESPIRATORY: See HPI. GASTROINTESTINAL: See HPI. GENITOURINARY: See HPI. SKIN: Denies rash or itching. MUSCULOSKELETAL: See HPI. NEUROLOGIC: Denies headache, numbness, or weakness. All systems reviewed & are unremarkable except as noted in HPI and below PMFSH Past Medical History Medical History Anemia receives iron infusions Anxiety Asthma Depression Prolapsed bladder UTI (urinary tract infection) Surgical History Surgical History Delivery by section H/O dilation and curettage Hx of section Hx of tubal ligation Social History Social History Smoking status: Never smoker Gender identity (if verbalized by the patient): Female Exam Narrative: GENERAL: Well appearing, morbidly obese, non-toxic, in no acute distress. HEAD: Normocephalic, atraumatic. NECK: Supple. No adenopathy, no masses. RESPIRATORY: Airway patent, respirations nonlabored. Clear to auscultation bilaterally, no rales, rhonchi, wheezing. No focal lung sounds. CARDIOVASCULAR: Regular rate and rhythm without murmurs, rubs, or gallops. Radial pulses 2+ and equal bilaterally. ABDOMINAL: Soft, mild tenderness in left lower quadrant and to the left of suprapubic region. Nondistended, no hepatosplenomegaly. Normoactive BS. No significant CVA tenderness to percussion. MUSCULOSKELETAL: Moves all extremities. Strength/ROM intact without gross deformities. Tenderness to palpation in left lumbosacral region. No midline spinal tenderness. SKIN: Warm, dry, normal color. No rashes. NEURO: A&O X3. Speech clear. Cranial nerves II-XII grossly intact. Steady gait. No ataxic movements. PSYCHIATRIC: Appropriate mood and affect. Normal interaction. Course Vital Signs Vital signs: Vital Signs Temperature 98.2 F 12/19/22 10:35 Pulse Rate 98 12/19/22 10:35 Respiratory Rate 18 12/19/22 10:35 Blood Pressure 133/85 12/19/22 10:35 Pulse Oximetry 99 12/19/22 10:35 Temperature 97.5 F L 12/19/22 12:38 Pulse Rate 74 12/19/22 12:38 Respiratory Rate 16 12/19/22 12:38 Blood Pressure 135/86 12/19/22 12:38 Pulse Oximetry 100 12/19/22 12:38 MDM - Female Genitourinary MDM Narrative Medical decision making narrative: Patient presented to ED with 2-day history of left flank pain, urinary symptoms. Vitals stable upon arrival. CBC without leukocytosis. CMP unremarkable, stable kidne
--- NOTE | 2022-12-19 11:54 | PC.NURSE ---
Pt to CT scan/XRAY via w/c at this time.
[2022-12-19] MEDS: SODIUM CHLORIDE 0.9% IV 1,000 ML 999 ML IV CONT (12:03)
[2022-12-19 12:38] VITALS: BP 135/86; PULSE 74; RESP 16; TEMP 36.4; O2SAT 100
== END 2022-12-19 13:17 | disposition home or self-care (01) ==
PROVIDERS: Emergency Provider Physician Assistant; PCP Nurse Practitioner Family
DX: N30.01 Acute cystitis with hematuria (principal); D64.9 Anemia, unspecified; J45.909 Unspecified asthma, uncomplicated; N81.10 Cystocele, unspecified; K42.9 Umbilical hernia without obstruction or gangrene
CPT/HCPCS: 36415; 71046; 74176; 80053; 81001; 81025; 85025; 96360; 99284; J0131; J7030

== ENCOUNTER 2023-02-09 11:50 | Outpatient (CLI) | payer OTHER, SELFPAY ==
--- NOTE | ~2023-02-09 | US_ITS ---
EXAMINATION: US breast LT limited HISTORY: Palpable lump in the upper inner quadrant of the left breast TECHNIQUE: Limited left breast ultrasound was performed. FINDINGS: There is a 3 mm round, circumscribed, hypoechoic mass with no posterior features or interna l vascularity at the 10:00 location 13 cm from the nipple corresponding to the palpable abnormality o f concern. IMPRESSION: Probably benign left breast mass corresponding to the palpable abnormality of concern. Follow-up targ eted left breast ultrasound in six months is recommended. BI-RADS category 3, probably benign findings. Reviewed, dictated and finalized at location A. IMPRESSION: Probably benign left breast mass corresponding to the palpable abnormality of c oncern. Follow-up targeted left breast ultrasound in six months is recommended. BI-RADS category 3, probably benign findings.
== END 2023-02-09 11:51 | disposition home or self-care (01) ==
PROVIDERS: PCP Nurse Practitioner Family; Visit Provider Nurse Practitioner
DX: N63.20 Unspecified lump in the left breast, unspecified quadrant (principal); R92.8 Other abnormal and inconclusive findings on diagnostic imaging of breast
CPT/HCPCS: 76642

== ENCOUNTER 2023-04-08 03:52 | Emergency (ER) | payer OTHER, SELFPAY ==
--- NOTE | ~2023-04-08 | XR_ITS ---
EXAMINATION: XR chest 1V portable INDICATION: Cough TECHNIQUE: Portable AP chest at 0432 hours COMPARISON: 12/19/2022 FINDINGS: The lungs are free of acute opacities. No pleural effusion or pneumothorax. The cardiomedia stinal silhouette is normal. IMPRESSION: 1. No acute cardiopulmonary abnormality. Reviewed, dictated and finalized at location A.
[2023-04-08 03:55] VITALS: BP 154/70; PULSE 97; RESP 18; TEMP 36.8; O2SAT 98
--- NOTE | 2023-04-08 04:20 | ED.URI ---
HPI - URI/Sore Throat General Chief Complaint: Upper Respiratory Infection Stated Complaint: cough Time Seen by Provider: 04/08/23 04:04 History of Present Illness HPI Narrative: 28-year-old female with PMH of cardiomyopathy, anemia, presents with several days of cough, congestion, she states she woke up today because she was feeling some trouble catching her breath. She has no swelling or tenderness in her legs. She is quite anxious and wants to make sure everything is okay. Related Data Home Medications Medication Instructions Recorded Confirmed ferrous gluconate 324 mg (38 mg mg 04/01/21 01/30/23 iron) tablet loratadine 10 mg tablet (Claritin) 10 mg PO DAILY 01/30/23 01/30/23 Allergies Allergy/AdvReac Type Severity Reaction Status Date / Time sulfamethoxazole Allergy Intermediate BLISTERS Verified 01/30/23 11:16 IN MOUTH trimethoprim Allergy Intermediate BLISTERS Verified 01/30/23 11:16 IN MOUTH Review of Systems Review of Systems: CONST: No fever. HEENT: Nasal congestion C/V: Chest tightness RESP: Cough GI: No abdominal pain : No dysuria. M/S: No joint pain. SKIN: No rash. NEURO: [No headache or focal numbness or weakness] PSYCH: Anxious PMFSH Past Medical History Medical History Anemia receives iron infusions Anxiety Asthma Depression Prolapsed bladder UTI (urinary tract infection) Surgical History Surgical History Delivery by section H/O dilation and curettage Hx of section Hx of tubal ligation Social History Social History Smoking status: Never smoker Gender identity (if verbalized by the patient): Female Exam Narrative: EXAMINATION OF ORGAN SYSTEMS/BODY AREAS: Constitutional: Vital signs per nursing GENERAL:[No acute distress, non-toxic appearing.] HEAD: Normal with no signs of head trauma. EYES: EOMI, conjunctiva normal ENT: Hearing grossly intact LUNGS: Nonlabored breathing. End expiratory wheezing upper lung bell HEART: [Regular rate and rhythm] ABD: [Soft], nontender to palpation EXT: Normal range of motion, no lower extremity edema, swelling, tenderness palpation, negative Homans SKIN: [No rashes or lesions.] NEURO: [Alert and oriented x 3. No gross focal sensory or strength deficits.] PSYCH: Normal affect Course Vital Signs Vital signs: Vital Signs Temperature 98.2 F 04/08/23 03:55 Pulse Rate 97 04/08/23 03:55 Respiratory Rate 18 04/08/23 03:55 Blood Pressure 154/70 H 04/08/23 03:55 Pulse Oximetry 98 04/08/23 03:55 Oxygen Delivery Room Air 04/08/23 03:55 Temperature 98.2 F 04/08/23 03:55 Pulse Rate 96 04/08/23 05:40 Respiratory Rate 16 04/08/23 05:40 Blood Pressure 154/70 H 04/08/23 03:55 Pulse Oximetry 98 04/08/23 05:40 Oxygen Delivery Room Air 04/08/23 03:55 MDM - URI/Sore Throat MDM Narrative Medical decision making narrative: ED COURSE AND MEDICAL DECISION MAKING: This 28-year-old patient presents with symptoms most suggestive of viral upper respiratory tract infection. Lungs with some faint wheezing without any respiratory distress or accessory muscle use. Patient has anxiety and history of heart failure and anemia and would like to have blood work, which I do feel is reasonable. Labs within acceptable limits. She is PERC negative. Chest x-ray on my independent interpretation does not show any obvious large consolidations concerning for bacterial pneumonia. EKG - 12-Lead: Performed at 0523. Interpreted by me. [Sinus rhythm]. Rate 91. [Normal] axis. OH-interval [normal]. QRS duration [normal]. QTc [normal]. [No ST segment elevation or depression]. [T-wave normal]. Impression: No EKG evidence of acute ischemia or dysrhythmia. On reevaluation, she is improved and [facility]
[2023-04-08 04:26] LABS: Basophils Percent Auto 0.3 % (0.2-1.2); Eosinophils Absolute Auto 0.1 K/mm3 (0-0.3); Eosinophils Percent Auto 1.8 % (0-4.4); Hematocrit 39.4 % (37.0-47.0); Hemoglobin 12.5 g/dL (12.0-15.0); Immature Granulocyte Absolute 0.02 K/mm3 (0.00-0.031); Immature Granulocyte Percent A 0.3 % (0-0.5); Lymphocytes Percent Auto 16.5 % (18.3-44.2); Mean Corpuscular HGB Conc 31.7 g/dl (32-36); Mean Corpuscular Hemoglobin 26.7 pg (26-34); Monocytes Absolute Auto 0.5 K/mm3 (0.1-0.6); Monocytes Percent Auto 6.8 % (2.6-8.5); Neutrophils Percent Auto 74.3 % (45.5-73.1); Platelet Count Result 333 k/mm3 (150-375); Red Blood Count 4.69 M/mm3 (4.2-5.4); Red Cell Distribution Width 14.1 % (11.5-14.5); White Blood Count 6.7 K/mm3 (4.5-10.0)
[2023-04-08 04:48] LABS: NT Pro B Type Natriuretic Pept < 20 pg/mL (19.9-100)
[2023-04-08 05:02] LABS: Influenza A QL RT-PCR Negative (Negative); Influenza B QL RT-PCR Negative (Negative); RSV RNA, RT-PCR Negative (Negative); SARS-CoV-2 RNA PCR Negative (Negative)
[2023-04-08 05:09] LABS: Alanine Aminotransferase 32 U/L (6-35); Albumin Level 4.6 g/dL (3.5-5.1); Alkaline Phosphatase 61 U/L (38-126); Anion Gap 10 mmol/L (8-16); Aspartate Amino Transferase 32 U/L (14-36); Bilirubin,Total 0.5 mg/dL (0.2-1.3); Blood Urea Nitrogen 8 mg/dL (7-17); Calcium 9.5 mg/dL (8.4-10.2); Carbon Dioxide 28 mmol/L (22-30); Chloride 103 mmol/L (98-107); Estimated CRCL calculation 151 ml/min; Estimated Glomerular Filt Rate > 60; Glucose 113 mg/dL (65-110); Lipase 44 U/L (23-300); Potassium 4.1 mmol/L (3.4-5.0); Sodium 141 mmol/L (137-145)
--- NOTE | 2023-04-08 05:12 | ECG_ITS ---
Measurements Intervals [place] Rate: 91 P: 19 ID: 164 QRS: 27 QRSD: 89 T: 16 QT: 327 QTc: 403 Interpretive Statements SINUS RHYTHM NORMAL ECG NO PREVIOUS ECG AVAILABLE FOR COMPARISON Electronically Signed On 04-08-2023 7:30:46 CDT by Yazan House D.O.
[2023-04-08 05:40] VITALS: PULSE 96; RESP 16; O2SAT 98
== END 2023-04-08 05:40 | disposition home or self-care (01) ==
PROVIDERS: Emergency Provider Emergency Medicine; PCP Nurse Practitioner Family
DX: J20.9 Acute bronchitis, unspecified (principal); J06.9 Acute upper respiratory infection, unspecified; Z20.822 Contact with and (suspected) exposure to COVID-19; J45.909 Unspecified asthma, uncomplicated; N81.10 Cystocele, unspecified; D50.9 Iron deficiency anemia, unspecified; Z87.440 Personal history of urinary (tract) infections
CPT/HCPCS: 36415; 71045; 80053; 83690; 83880; 84484; 85025; 87637; 93005; 99284

== ENCOUNTER 2023-08-23 01:07 | Emergency (ER) | payer OTHER, SELFPAY ==
--- NOTE | ~2023-08-23 | XR_ITS ---
Clinical Indication: Chest pain PA and lateral views of the chest: Comparison: 04/08/2023 Findings: The lungs are clear, without evidence of focal consolidation or pleural effusion. Cardiome diastinal silhouette is within normal limits. Bones and soft tissues are unremarkable. Impression: Normal chest. Reviewed, dictated and finalized at location . [employer] Impression: Normal chest.
--- NOTE | 2023-08-23 01:09 | ECG_ITS ---
Measurements Intervals [place] Rate: 84 P: 21 IA: 155 QRS: 27 QRSD: 102 T: 22 QT: 353 QTc: 419 Interpretive Statements SINUS RHYTHM NORMAL ECG COMPARED TO ECG 04/01/2021 18:45:14 NO SIGNIFICANT CHANGES Electronically Signed On 08-23-2023 6:21:27 MILANESE KNITTING MACHINE OPERATOR by Yazan House D.O.
[2023-08-23 01:28] VITALS: BP 136/68; PULSE 76; RESP 17; TEMP 36.1; O2SAT 100
[2023-08-23 01:31] LABS: Basophils Percent Auto 0.2 % (0.2-1.2); Eosinophils Absolute Auto 0.3 K/mm3 (0-0.3); Eosinophils Percent Auto 3.1 % (0-4.4); Hematocrit 36.3 % (37.0-47.0); Immature Granulocyte Absolute 0.02 K/mm3 (0.00-0.031); Immature Granulocyte Percent A 0.2 % (0-0.5); Lymphocytes Absolute Auto 3.21 K/mm3 (0.9-3.2); Lymphocytes Percent Auto 39.3 % (18.3-44.2); Mean Corpuscular HGB Conc 30.3 g/dl (32-36); Mean Corpuscular Hemoglobin 25.5 pg (26-34); Mean Corpuscular Volume 84.2 fl (80-100); Monocytes Absolute Auto 0.6 K/mm3 (0.1-0.6); Neutrophils Absolute Auto 4.1 K/mm3 (1.3-6.7); Neutrophils Percent Auto 50.2 % (45.5-73.1); Platelet Count Result 395 k/mm3 (150-375); Red Blood Count 4.31 M/mm3 (4.2-5.4); Red Cell Distribution Width 15.2 % (11.5-14.5); White Blood Count 8.2 K/mm3 (4.5-10.0)
[2023-08-23 01:43] LABS: Partial Thromboplastin Time 27.3 SECONDS (22.3-36.8); Prothrombin Time 13.3 Seconds (11.1-14.7)
[2023-08-23 01:46] LABS: Alanine Aminotransferase 37 U/L (6-35); Albumin Level 4.7 g/dL (3.5-5.1); Alkaline Phosphatase 49 U/L (38-126); Anion Gap 11 mmol/L (8-16); Aspartate Amino Transferase 30 U/L (14-36); Bilirubin,Total 0.4 mg/dL (0.2-1.3); Blood Urea Nitrogen 10 mg/dL (7-17); Calcium 9.2 mg/dL (8.4-10.2); Carbon Dioxide 26 mmol/L (22-30); Chloride 102 mmol/L (98-107); Estimated CRCL calculation 153 ml/min; Estimated Glomerular Filt Rate > 60; Glucose 145 mg/dL (65-110); Lipase 43 U/L (23-300); Potassium 3.9 mmol/L (3.4-5.0); Sodium 139 mmol/L (137-145)
[2023-08-23 01:57] LABS: Troponin I < 0.012 ng/mL (0.000-0.034)
[2023-08-23 05:58] LABS: Troponin I < 0.012 ng/mL (0.000-0.034)
[2023-08-23 06:34] VITALS: BP 141/82; PULSE 77; RESP 15; O2SAT 100
[2023-08-23 06:35] VITALS: PULSE 80
[2023-08-23 07:40] VITALS: BP 144/94; PULSE 79; RESP 17; O2SAT 98
[2023-08-23] MEDS: KETOROLAC 30 MG/ML VIAL (*BKC) IV PUSH (07:41)
[2023-08-23 08:08] LABS: Troponin I < 0.012 ng/mL (0.000-0.034)
--- NOTE | 2023-08-23 08:20 | ED.CHESTPAIN ---
HPI - Chest Pain General Chief Complaint: Chest Pain Stated Complaint: chest pain, dizziness Time Seen by Provider: 08/23/23 06:57 History of Present Illness HPI narrative: Patient is a 28-year-old female who presents ER with left-sided chest pain. Sudden onset overnight. Aching. Rates left side and shoulder. Worse with physical movement. No dyspnea. No productive cough. No hemoptysis. Denies alleviating factors. No cardiac history. Related Data Home Medications Medication Instructions Recorded Confirmed ferrous gluconate 324 mg (38 mg mg 04/01/21 01/30/23 iron) tablet loratadine 10 mg tablet (Claritin) 10 mg PO DAILY 01/30/23 05/29/23 Allergies Allergy/AdvReac Type Severity Reaction Status Date / Time sulfamethoxazole Allergy Intermediate BLISTERS Verified 05/29/23 14:03 IN MOUTH trimethoprim Allergy Intermediate BLISTERS Verified 05/29/23 14:03 IN MOUTH Review of Systems Review of Systems: All systems reviewed & are unremarkable except as noted in HPI and below Constitutional: Constitutional: Reports no additional constitutional complaints ENT: Reports system reviewed and no additional complaints, except as documented Cardiovascular: Cardiovascular: Reports chest pain, Denies rapid heart rate, Reports radiating jaw, neck or arm pain and Denies slow heart rate Respiratory: Respiratory: Reports no additional respiratory complaints Gastrointestinal: Gastrointestinal: Reports no additional gastrointestinal complaints Genitourinary: Genitourinary: Reports no additional female genitourinary complaints [facility] Past Medical History Medical History Anemia receives iron infusions Anxiety Asthma Depression Prolapsed bladder UTI (urinary tract infection) Surgical History Surgical History Delivery by section H/O dilation and curettage Hx of section Hx of tubal ligation Social History Social History (Updated 05/29/23 @ 14:05 by Sanjana Ceballos CMA) Smoking status: Never smoker Lack of Transportation: No Lack of Food: Never True Current Housing: I Have Housing Concerned About Future Housing: No Difficulty Paying Gas/Electric Bills: No Difficulty Paying for Meds: No Currently Unemployed: No Education: Trade/Vocational Certificate Difficulty w/ Childcare or Family Care: No Gender identity (if verbalized by the patient): Female Exam Narrative: GENERAL: Well-appearing, well-nourished, and in no acute distress. HEAD: Normocephalic, atraumatic. ENT: Mucous membranes moist. NECK: Supple. CHEST: Clear to auscultation. No respiratory distress. Mild discomfort with palpation of the left chest wall. HEART: Regular rate and rhythm. Normal peripheral pulses. ABDOMEN: Soft, nontender, nondistended. EXTREMITIES: Normal range of motion. No edema. NEURO: Alert and oriented x3. PSYCH: Normal mood and affect. Course Course Emergency Course: Patient resting comfortably. Troponin negative x3. EKG normal. Toradol for pain. Discharged home. Vital Signs Vital signs: Vital Signs Temperature 97 F L 08/23/23 01:28 Pulse Rate 76 08/23/23 01:28 Respiratory Rate 17 08/23/23 01:28 Blood Pressure 136/68 08/23/23 01:28 Pulse Oximetry 100 08/23/23 01:28 Oxygen Delivery Room Air 08/23/23 01:28 Temperature 97 F L 08/23/23 01:28 Pulse Rate 79 08/23/23 07:40 Respiratory Rate 17 08/23/23 07:40 Blood Pressure 144/94 H 08/23/23 07:40 Pulse Oximetry 98 08/23/23 07:40 Oxygen Delivery Room Air 08/23/23 01:28 MDM - Chest Pain Lab Data 08/23/23 01:25 08/23/23 01:25 Labs: Lab Results 08/23/23 08/23/23 08/23/23 Range/Units 01:25 05:22 07:42 WBC 8.2 (4.5-10.0) K/mm3 RBC 4.31 (4.2-5.4) M/mm3 Hgb 11.0 L (12.0-15.0) g/dL Hct 36.3 L (37.0-47.
[2023-08-23 08:42] VITALS: BP 133/81; PULSE 68; RESP 19; O2SAT 98
== END 2023-08-23 08:44 | disposition home or self-care (01) ==
PROVIDERS: Emergency Medicine; Emergency Provider Emergency Medicine; PCP Nurse Practitioner Family
DX: R07.9 Chest pain, unspecified (principal); D64.9 Anemia, unspecified; F32.A Depression, unspecified; Z87.440 Personal history of urinary (tract) infections
CPT/HCPCS: 36415; 71046; 80053; 83690; 84484; 85025; 85610; 85730; 93005; 96374; 99284; J1885

== ENCOUNTER → 2023-10-12 13:42 | Outpatient (CLI) | payer BC, MEDICAID, SELFPAY ==
--- NOTE | ~2023-10-12 | MR_ITS ---
EXAMINATION: MR thoracic spine wo con DATE: 10/12/2023 14:24 INDICATION: Chronic mid to low back pain. Radiculopathy, thoracic region. TECHNIQUE: Magnetic resonance imaging (MRI) of the thoracic spine was performed without intravenous c ontrast. COMPARISON: None FINDINGS: There is 3 degrees levocurvature of thoracic spine. There is mild chronic anterior wedging of T6-T8 vertebral bodies. There are hemangiomas in T7, T8, and T9 vertebral bodies. There is mildly decreased disc height from T6-T7 through T8-T9. There is multilevel facet joint osteoarthritis, sever e on the right and T4-T5 and on the left at T5-T6. On the right, there is mild neural foraminal steno sis at T4-T5. On the left, there is mild neural foraminal stenosis at T5-T6. At T2-T3, there is a rig ht central protrusion with mild central canal stenosis. At T3-T4, there is a central protrusion with mild central canal stenosis. At T6-T7, there is a central protrusion with mild central canal stenosis . At T7-T8, there is a right central extrusion with mild central canal stenosis and ventral indentati on of the spinal cord. At T8-T9, there is a central extrusion with mild central canal stenosis and ve ntral indentation of the spinal cord. At T9-T10, there is a right central protrusion with mild centra l canal stenosis. At T11-T12, there is a central protrusion with mild central canal stenosis. IMPRESSION: 1. Mild thoracic spondylosis. Reviewed, dictated and finalized at location E. ITIES MANAGER
--- NOTE | ~2023-10-12 | MR_ITS ---
EXAMINATION: MR lumbar spine wo con DATE: 10/12/2023 14:28 INDICATION: Radiculopathy, lumbar region. TECHNIQUE: Magnetic resonance imaging (MRI) of the lumbar spine was performed without intravenous con trast. Sequences included sagittal T2-weighted FSE, sagittal T2-weighted FS FSE, sagittal T1-weighted FSE, and axial T2-weighted FSE. COMPARISON: None FINDINGS: Bone alignment is normal. There is mild chronic anterior wedging of T11 vertebral body. The re are Schmorl's nodes at multiple levels. There is mildly decreased disc height at L4-L5. The distal spinal cord signal intensity is normal. The conus medullaris is at T12-L1. The following disc levels are specifically discussed: L1-L2: There is a right central protrusion. There is mild bilateral facet joint osteoarthritis. There is no neural foraminal stenosis. There is mild central canal stenosis. L2-L3: The disc does not extend beyond the endplate margin. There is mild bilateral facet joint osteo arthritis. There is no neural foraminal stenosis. There is no central canal stenosis. L3-L4: The disc does not extend beyond the endplate margin. There is severe bilateral facet joint ost eoarthritis. There is no neural foraminal stenosis. There is no central canal stenosis. L4-L5: There is a right foraminal protrusion with annular fissure. There is severe bilateral facet theo int osteoarthritis. There is mild right neural foraminal stenosis. There is no central canal stenosis . L5-S1: The disc does not extend beyond the endplate margin. There is moderate bilateral facet joint o steoarthritis. There is no neural foraminal stenosis. There is no central canal stenosis. IMPRESSION: 1. Mild lumbar spondylosis. Reviewed, dictated and finalized at location E. R USE INSPECTOR IMPRESSION: 1. Mild lumbar spondylosis.
== END ==
PROVIDERS: PCP Internal Medicine; Visit Provider Pain Medicine Interventional Pain Medicine
DX: M47.22 Other spondylosis with radiculopathy, cervical region (principal); M47.26 Other spondylosis with radiculopathy, lumbar region; M47.23 Other spondylosis with radiculopathy, cervicothoracic region; M47.27 Other spondylosis with radiculopathy, lumbosacral region; E66.9 Obesity, unspecified; F41.1 Generalized anxiety disorder
CPT/HCPCS: 72146; 72148

== ENCOUNTER → 2023-11-03 09:27 | Outpatient (CLI) | payer BC, MEDICAID, SELFPAY ==
--- NOTE | ~2023-11-03 | US_ITS ---
Limited Abdominal Sonogram: Real-time sonographic imaging of the right upper quadrant was performed. Clinical History: Abdominal pain Findings: The liver appears echogenic, with no evidence of mass lesion or bile duct dilatation. Main portal vein demonstrates normal direction of flow. The gallbladder is well distended, and contains m ultiple echogenic, shadowing gallstones. No gallbladder wall thickening. The common bile duct measure s 6 mm. The visualized pancreas, aorta, and IVC are unremarkable. Right kidney measures 11.5 cm in l ength, without evidence of hydronephrosis. Impression: Diffuse fatty infiltration of liver. Cholelithiasis. Reviewed, dictated and finalized at location M. EDGER Impression: Diffuse fatty infiltration of liver. Cholelithiasis.
== END ==
PROVIDERS: PCP Internal Medicine; Visit Provider Internal Medicine
DX: R10.10 Upper abdominal pain, unspecified (principal); K80.20 Calculus of gallbladder without cholecystitis without obstruction
CPT/HCPCS: 76705

== ENCOUNTER → 2023-11-14 10:36 | Outpatient (CLI) | payer BC, MEDICAID, SELFPAY ==
--- NOTE | ~2023-11-14 | MR_ITS ---
EXAMINATION: MR cervical spine wo con DATE: 11/14/2023 11:17 INDICATION: Cervical radiculopathy TECHNIQUE: Magnetic resonance imaging (MRI) of the cervical spine was performed without intravenous c ontrast. Sequences included sagittal T2-weighted FSE, sagittal T2-weighted FS FSE, sagittal T1-weight ed FSE, axial MERGE and axial T2-weighted FSE. COMPARISON: None FINDINGS: Straightening of the normal cervical lordosis. 9 degrees cervicothoracic levocurvature. Vertebral omer dy heights are normal. Bone marrow signal intensity is normal. Intervertebral disc heights are pia l. Cord signal intensity is normal. Cervical soft tissues are unremarkable. The following disc levels are specifically discussed: C2-C3: The disc does not extend beyond the endplate margin. There is no uncovertebral joint osteoarth ritis. There is mild right facet joint osteoarthritis. There is no neural foraminal stenosis. There i s no central canal stenosis. C3-C4: Disc is mildly bulging. There is mild bilateral uncovertebral joint osteoarthritis. There is m ild bilateral facet joint osteoarthritis. There is no neural foraminal stenosis. There is no central canal stenosis. C4-C5: Disc is bulging. There is mild bilateral uncovertebral joint osteoarthritis. There is mild lef t facet joint osteoarthritis. There is mild right neural foraminal stenosis. There is minimal central canal stenosis. C5-C6: Disc is mildly bulging. There is no uncovertebral joint osteoarthritis. There is no facet join t osteoarthritis. There is no neural foraminal stenosis. There is no central canal stenosis. C6-C7: Disc is mildly bulging. There is mild left uncovertebral joint osteoarthritis. There is mild b ilateral facet joint osteoarthritis. There is no neural foraminal stenosis. There is no central canal stenosis. C7-T1: Small central disc protrusion. There is no uncovertebral joint osteoarthritis. There is mild b ilateral facet joint osteoarthritis. There is no neural foraminal stenosis. There is no central canal stenosis. IMPRESSION: 1. Minimal cervical spondylosis. Reviewed, dictated and finalized at location A. STANCE WELDER
== END ==
PROVIDERS: PCP Internal Medicine; Visit Provider Pain Medicine Interventional Pain Medicine
DX: M43.02 Spondylolysis, cervical region (principal)
CPT/HCPCS: 72141

== ENCOUNTER 2023-11-26 17:49 | Emergency (ER) | payer BC, MEDICAID, SELFPAY ==
--- NOTE | ~2023-11-26 | US_ITS ---
EXAMINATION: US venous doppler [facility] DATE: 11/26/2023 19:15 INDICATION: calf pain . TECHNIQUE: Grayscale images without and with compression and Doppler images of the left lower extremi ty veins were obtained. COMPARISON: None FINDINGS: The left common femoral vein, profunda (deep) femoral vein, femoral vein, popliteal vein, peroneal v ein, posterior tibial veins, and greater saphenous vein are patent. IMPRESSION: Patent left lower extremity veins. No evidence of deep venous thrombosis. Reviewed, dictated and finalized at location K. O WRITER OPERATOR
[2023-11-26 17:55] VITALS: BP 143/69; PULSE 93; RESP 20; TEMP 36.5; O2SAT 100
--- NOTE | 2023-11-26 19:00 | ED.LOWEXIN ---
HPI - Extremity Injury (Lower) General Chief Complaint: Extremity Injury, Lower Stated Complaint: left calf pain Time Seen by Provider: 11/26/23 18:36 Source: patient and family Mode of arrival: ambulatory Limitations: no limitations History of Present Illness HPI Narrative: 28 years old white female complaining of pain at the back of the left lower leg started 2 days ago. Patient twisted her leg on the snow 1 day prior to that. She denies any fever, chills, nausea, vomiting, bruises, chest pain or trouble breathing. Related Data Home Medications Medication Instructions Recorded Confirmed ferrous gluconate 324 mg (38 mg mg 04/01/21 09/13/23 iron) tablet Allergies Allergy/AdvReac Type Severity Reaction Status Date / Time sulfamethoxazole Allergy Intermediate BLISTERS Verified 09/13/23 14:12 IN MOUTH trimethoprim Allergy Intermediate BLISTERS Verified 09/13/23 14:12 IN MOUTH Review of Systems Review of Systems: All systems reviewed & are unremarkable except as noted in HPI and below PMFSH Past Medical History Medical History Anemia receives iron infusions Anxiety Asthma Depression Prolapsed bladder UTI (urinary tract infection) Surgical History Surgical History Delivery by section H/O dilation and curettage Hx of section Hx of tubal ligation Family History Family History Mother Heart disease Hypertension Social History Social History Smoking status: Never smoker Alcohol intake: never Substance use type: does not use Lack of Transportation: No Lack of Food: Never True Current Housing: I Have Housing Concerned About Future Housing: No Difficulty Paying Gas/Electric Bills: No Difficulty Paying for Meds: No Currently Unemployed: No Education: High School Diploma/GED Difficulty w/ Childcare or Family Care: No Living arrangements: with family Occupation/Education: unemployed Gender identity (if verbalized by the patient): Female Exam Narrative: General appearance: Well-developed, well-nourished Skin: Normal color Head: Normocephalic, nontraumatic Eyes: Clear conjunctiva ENT: Oropharynx normal, ears normal, nose normal Neck: Supple, nontender Chest and respiratory: Airway patent, no respiratory distress, no accessory muscle use Heart: Regular rate/rhythm Abdomen: Soft, nontender, no organomegaly, quiet bowel sounds Vascular: Normal peripheral pulses, normal capillary refill. Musculoskeletal: Mild diffuse tenderness left calf muscle, no bruises, no swelling, no rash, no deformity Neurologic: Alert and oriented ?3, [employer] is normal as tested, no gross motor deficit Course Vital Signs Vital signs: Vital Signs Temperature 36.5 C 11/26/23 17:55 Pulse Rate 93 11/26/23 17:55 Respiratory Rate 20 11/26/23 17:55 Blood Pressure 143/69 H 11/26/23 17:55 Pulse Oximetry 100 11/26/23 17:55 Oxygen Delivery Room Air 11/26/23 17:55 Temperature 36.5 C 11/26/23 17:55 Pulse Rate 93 11/26/23 17:55 Respiratory Rate 20 11/26/23 17:55 Blood Pressure 143/69 H 11/26/23 17:55 Pulse Oximetry 100 11/26/23 17:55 Oxygen Delivery Room Air 11/26/23 17:55 MDM - Extremity Injury (Lower) MDM Narrative Medical decision making narrative: Left lower extremity sprain/strain versus deep vein thrombosis is my concern. Venous Doppler left lower extremity showed no blood clot. Patient to be discharged on Tylenol, ibuprofen as needed
[2023-11-26 20:16] VITALS: BP 138/67; PULSE 90; RESP 19; O2SAT 100
== END 2023-11-26 20:18 | disposition home or self-care (01) ==
PROVIDERS: Emergency Provider Emergency Medicine; PCP Internal Medicine
DX: M79.662 Pain in left lower leg (principal); J45.909 Unspecified asthma, uncomplicated; D50.9 Iron deficiency anemia, unspecified; Z87.440 Personal history of urinary (tract) infections; N81.10 Cystocele, unspecified
CPT/HCPCS: 93971; 99284

== ENCOUNTER 2023-12-03 04:13 | Emergency (ER) | payer BC, MEDICAID, SELFPAY ==
[2023-12-03] VITALS (8 sets, daily range): BP systolic 120–150; BP diastolic 58–91; PULSE 70–96; RESP 16–19; TEMP 36.4–36.9; O2SAT 91–100
--- NOTE | ~2023-12-03 | XR_ITS ---
XR knee RT 3V 12/03/2023 04:55 Indication: Right knee pain and swelling Procedure: 3 views right knee Comparison: No prior studies for comparison. Findings: There is tricompartment osteoarthritis. Small knee effusion. No fracture or traumatic malal ignment. No foreign bodies. Impression: 1: Small joint effusion. Reviewed, dictated and finalized at location A. TION DIRECTOR Impression: 1: Small joint effusion.
[2023-12-03] MEDS: LIDO 1%/EPINEPHRINE 1:100,000 20 ML VIAL 10 ML INFILTRATE (05:26)
[2023-12-03] MEDS: ACETAMINOPHEN 500 MG TABLET 1000 MG PO (06:39)
[2023-12-03] MEDS: KETOROLAC 15 MG/ML VIAL (*BKC) IV PUSH (06:40)
--- NOTE | 2023-12-03 06:53 | ED.GENADULT ---
HPI - General Adult General Chief complaint: Extremity Problem,Nontraumatic <Dominick Reynoso MD - Last Filed: 12/03/23 07:02> Stated complaint: R knee swelling, groin pain <Dominick Reynoso MD - Last Filed: 12/03/23 07:02> Time Seen by Provider: 12/03/23 04:35 <Dominick Reynoso MD - Last Filed: 12/03/23 07:02> History of Present Illness HPI narrative: 28-year-old female presenting ED with chief complaint of right knee pain. Patient says that she noticed swelling and pain when moving. No trauma. No fever chills nausea vomiting or diarrhea. Patient is also concerned because she has a small painful lump in her groin occurred after she shaved. She is concerned that they may be related <Dominick Reynoso MD - Last Filed: 12/03/23 07:02> Related Data Home medications: Home Medications Medication Instructions Recorded Confirmed ferrous gluconate 324 mg (38 mg mg 04/01/21 09/13/23 iron) tablet <Dominick Reynoso MD - Last Filed: 12/03/23 07:02> Allergies/adverse reactions: Allergies Allergy/AdvReac Type Severity Reaction Status Date / Time sulfamethoxazole Allergy Intermediate BLISTERS Verified 09/13/23 14:12 IN MOUTH trimethoprim Allergy Intermediate BLISTERS Verified 09/13/23 14:12 IN MOUTH <Dominick Reynoso MD - Last Filed: 12/03/23 07:02> [facility] Past Medical History Medical History: Medical History Anemia receives iron infusions Anxiety Asthma Depression Prolapsed bladder UTI (urinary tract infection) <Dominick Reynoso MD - Last Filed: 12/03/23 07:02> Surgical History Surgical History: Surgical History Delivery by section H/O dilation and curettage Hx of section Hx of tubal ligation <Dominick Reynoso MD - Last Filed: 12/03/23 07:02> Family History Family History: Family History Mother Heart disease Hypertension <Dominick Reynoso MD - Last Filed: 12/03/23 07:02> Social History Social History: Social History Smoking status: Never smoker Alcohol intake: never Substance use type: does not use Lack of Transportation: No Lack of Food: Never True Current Housing: I Have Housing Concerned About Future Housing: No Difficulty Paying Gas/Electric Bills: No Difficulty Paying for Meds: No Currently Unemployed: No Education: High School Diploma/GED Difficulty w/ Childcare or Family Care: No Living arrangements: with family Occupation/Education: unemployed Gender identity (if verbalized by the patient): Female <Dominick Reynoso MD - Last Filed: 12/03/23 07:02> Exam Narrative: APPEARANCE: No apparent distress. Head: atraumatic. EYES: EOMI, NOSE: Atraumatic NECK: Trachea midline RESPIRATORY: No increased rate of breathing CARDIOVASCULAR: RRR, ABDOMINAL: Non-distended MUSCULOSKELETAl: focal exam of the right knee shows mild swelling although exam is limited by obesity. No warmth or erythema. Pain with active range of motion. NEURO: Alert. Moving 4/4 extremities SKIN:: Warm, dry. Normal color PSYCHIATRIC: Normal affect <Dominick Reynoso MD - Last Filed: 12/03/23 07:02> Course Reevaluation(s) Reevaluation #1: Patient was signed out to me by the overnight physician with aspiration results pending. Patient is afebrile. Synovial fluid was cloudy with 4000 red blood cells per micro L and 1500 nucleated cells per micro L. g stain showed many white blood cells with no organisms seen. Results were discussed with Simeon and is low concern for septic arthritis. On re-evaluation patient does have a mild effusion with no erythema and patient is in no distress. Patient was afebrile with no leukocytosis, no elevated ESR in just a minor elevated CRP at 1.4. Russ
[2023-12-03 08:02] LABS: Appearance Synovial Fluid Cloudy (Clear); Color Synovial Fluid Yellow (Colorless); Nucleated Cell Synovial Fluid 1537 /uL (0-200); RBC Synovial Fluid 4000 /uL (0-0); Source Synovial Fluid Synovial fluid
[2023-12-03 08:05] LABS: Lymphocytes Synovial Fluid 22 %; Monocytes Synovial Fluid 5 %; Neutrophils Synovial Fluid 4 % (0-25)
[2023-12-03 08:07] LABS: Macrophages Synovial Fluid 22 %; Other Cells Synovial Fluid 47 %
[2023-12-03 09:19] LABS: Crystals Synovial Fluid None Seen (None Seen)
[2023-12-03 09:45] LABS: Basophils Percent Auto 0.4 % (0.2-1.2); Eosinophils Absolute Auto 0.2 K/mm3 (0-0.3); Hematocrit 35.9 % (37.0-47.0); Hemoglobin 11.3 g/dL (12.0-15.0); Immature Granulocyte Absolute 0.02 K/mm3 (0.00-0.031); Immature Granulocyte Percent A 0.3 % (0-0.5); Lymphocytes Absolute Auto 2.21 K/mm3 (0.9-3.2); Lymphocytes Percent Auto 29.2 % (18.3-44.2); Mean Corpuscular HGB Conc 31.5 g/dl (32-36); Mean Corpuscular Hemoglobin 26.2 pg (26-34); Mean Corpuscular Volume 83.3 fl (80-100); Mean Platelet Volume 9.1 fl (7.4-10.4); Monocytes Absolute Auto 0.5 K/mm3 (0.1-0.6); Monocytes Percent Auto 6.1 % (2.6-8.5); Neutrophils Absolute Auto 4.6 K/mm3 (1.3-6.7); Platelet Count Result 412 k/mm3 (150-375); Red Blood Count 4.31 M/mm3 (4.2-5.4); Red Cell Distribution Width 13.6 % (11.5-14.5); White Blood Count 7.6 K/mm3 (4.5-10.0)
[2023-12-03 09:59] LABS: Alanine Aminotransferase 37 U/L (6-35); Albumin Level 4.4 g/dL (3.5-5.1); Alkaline Phosphatase 54 U/L (38-126); Anion Gap 7 mmol/L (8-16); Aspartate Amino Transferase 26 U/L (14-36); Bilirubin,Total 0.3 mg/dL (0.2-1.3); Blood Urea Nitrogen 11 mg/dL (7-17); Calcium 9.6 mg/dL (8.4-10.2); Carbon Dioxide 25 mmol/L (22-30); Chloride 106 mmol/L (98-107); Estimated CRCL calculation 153 ml/min; Estimated Glomerular Filt Rate > 60; Glucose 96 mg/dL (65-110); Sodium 138 mmol/L (137-145)
[2023-12-03 10:10] LABS: CRP 1.4 mg/dL (<1.0)
[2023-12-03 10:12] LABS: Erythrocyte Sedimentation Rate 16 mm/hr (0-20)
== END 2023-12-03 10:55 | disposition home or self-care (01) ==
PROVIDERS: Emergency Medicine; Emergency Provider Emergency Medicine; PCP Internal Medicine
DX: M25.561 Pain in right knee (principal); M25.461 Effusion, right knee; D64.9 Anemia, unspecified; J45.909 Unspecified asthma, uncomplicated; N81.10 Cystocele, unspecified; E66.9 Obesity, unspecified; Z68.42 Body mass index [BMI] 45.0-49.9, adult; F41.9 Anxiety disorder, unspecified; Z87.440 Personal history of urinary (tract) infections
CPT/HCPCS: 20610; 36415; 73562; 80053; 85025; 85652; 86140; 87040; 87070; 87075; 87205; 89051; 89060; 96374; 99284; A9270; J1885

== ENCOUNTER 2024-01-26 13:08 | Emergency (ER) | payer BC, SELFPAY ==
--- NOTE | ~2024-01-26 | US_ITS ---
EXAMINATION: US pelvic complete w TV DATE: 01/26/2024 14:52 INDICATION: Right pelvic pain. TECHNIQUE: Multiple transabdominal and transvaginal sonographic images of the pelvis were obtained. COMPARISON: None. FINDINGS: TRANSABDOMINAL ULTRASOUND: The uterus measures 11.6 x 5.3 x 6.2 cm. There is no free fluid in the pelvis. TRANSVAGINAL ULTRASOUND: The endometrial complex measures 9 mm in thickness. The right ovary measures 2.9 x 3.0 x 1.9 cm. The left ovary measures 2.8 x 2.1 x 2.4 cm. There is normal vascular flow in the ovaries. IMPRESSION: 1. Normal pelvis. Reviewed, dictated and finalized at location E. IMPRESSION: 1. Normal pelvis.
[2024-01-26 13:16] VITALS: BP 129/74; PULSE 80; RESP 16; TEMP 36.4; O2SAT 100
[2024-01-26 14:13] LABS: Basophils Percent Auto 0.2 % (0.2-1.2); Eosinophils Absolute Auto 0.2 K/mm3 (0-0.3); Eosinophils Percent Auto 2.2 % (0-4.4); Hematocrit 36.3 % (37.0-47.0); Hemoglobin 11.4 g/dL (12.0-15.0); Immature Granulocyte Absolute 0.03 K/mm3 (0.00-0.031); Immature Granulocyte Percent A 0.3 % (0-0.5); Lymphocytes Percent Auto 19.3 % (18.3-44.2); Mean Corpuscular HGB Conc 31.4 g/dl (32-36); Mean Corpuscular Hemoglobin 25.5 pg (26-34); Mean Corpuscular Volume 81.2 fl (80-100); Mean Platelet Volume 8.9 fl (7.4-10.4); Monocytes Absolute Auto 0.5 K/mm3 (0.1-0.6); Monocytes Percent Auto 5.3 % (2.6-8.5); Neutrophils Absolute Auto 6.4 K/mm3 (1.3-6.7); Neutrophils Percent Auto 72.7 % (45.5-73.1); Platelet Count Result 452 k/mm3 (150-375); Red Blood Count 4.47 M/mm3 (4.2-5.4); Red Cell Distribution Width 13.4 % (11.5-14.5); White Blood Count 8.8 K/mm3 (4.5-10.0)
[2024-01-26 14:20] LABS: Appearance Urine Clear (Clear); Bacteria Urine None Seen /hpf; Bilirubin Urine Negative (Negative); Blood Urine 2+ (Negative); Color Urine Yellow (Yellow); Glucose Urine UA Negative (Negative); Ketones Urine Negative (Negative); Leukocyte Esterase Ur Negative LEU/UL (Negative); Nitrate Urine Negative (Negative); Non Pathogenic Casts 0-2; Protein Urine Negative (Negative); RBC Urine 0-2 /hpf (0-2); Squamous Epithelial Cell Urine None Seen /hpf (Few); Urobilinogen Urine 0.2 mg/dL (<2.0); WBC Urine 0-5 /hpf (0-3); pH Urine 6.5 (5.0-9.0)
[2024-01-26 14:22] LABS: Specific Grav Ur 1.004 (1.001-1.035)
[2024-01-26 14:23] LABS: Add Urine Microscopic? YES
[2024-01-26 14:30] LABS: Anion Gap 8 mmol/L (4-12); Blood Urea Nitrogen 8 mg/dL (7-17); Calcium 10.1 mg/dL (8.4-10.2); Carbon Dioxide 28 mmol/L (22-30); Chloride 105 mmol/L (98-107); Estimated CRCL calculation 152 ml/min; Estimated Glomerular Filt Rate > 60; Glucose 102 mg/dL (65-110); Potassium 4.5 mmol/L (3.4-5.0); Sodium 141 mmol/L (137-145)
--- NOTE | 2024-01-26 15:12 | ED_ITS ---
HPI - Abdominal Pain General Chief Complaint: Abdominal Pain Stated Complaint: groin pain Time Seen by Provider: 01/26/24 13:26 Source: patient Mode of arrival: ambulatory Limitations: no limitations History of Present Illness HPI narrative: 29-year-old with a history of asthma, anemia here with the complaints of pain in the right inguinal area for past 1-2 days. She denies any trauma. No history of fever or chills. Denies any urinary symptoms remote history of ovarian cysts. She started her menstrual cycle yesterday. Denies any clots or heavy bleeding. MD elicited complaint: abdominal pain Pertinent past history: none Onset (ago): day(s) (1) Pain Consistency: constant Location: other (Right inguinal area) Severity: mild Quality: aching Radiation: none Migration to: no migration Exacerbating factors: nothing Relieving factors: nothing Related Data Home Medications Medication Instructions Recorded Confirmed ferrous gluconate 324 mg (38 mg mg 04/01/21 09/13/23 iron) tablet Allergies Allergy/AdvReac Type Severity Reaction Status Date / Time sulfamethoxazole Allergy Intermediate BLISTERS Verified 01/26/24 13:18 IN MOUTH trimethoprim Allergy Intermediate BLISTERS Verified 01/26/24 13:18 IN MOUTH Review of Systems Review of Systems: All systems reviewed & are unremarkable except as noted in HPI and below Constitutional: Constitutional: Reports no additional constitutional complaint s Eyes: Eyes: Reports no additional eye complaints ENT: Reports system reviewed and no additional complaints, except as documented Cardiovascular: Cardiovascular: Reports no additional cardiovascular complaints Respiratory: Respiratory: Reports no additional respiratory complaints Gastrointestinal: Gastrointestinal: Reports as per HPI Genitourinary: Genitourinary: Reports no additional female genitourinary complaints Musculoskeletal: Musculoskeletal: Reports no additional musculoskeletal complaints Integumentary/Breasts: Skin/Breast: Reports system reviewed and no additional complaints, except as docu PMFSH Past Medical History Medical History Anemia receives iron infusions Anxiety Asthma Depression Prolapsed bladder UTI (urinary tract infection) Surgical History Surgical History Delivery by section H/O dilation and curettage Hx of section Hx of tubal ligation Family History Family History Mother Heart disease Hypertension Social History Social History Smoking status: Never smoker Alcohol intake: never Substance use type: does not use Lack of Transportation: No Lack of Food: Never True Current Housing: I Have Housing Concerned About Future Housing: No Difficulty Paying Gas/Electric Bills: No Difficulty Paying for Meds: No Currently Unemployed: No Education: High School Diploma/GED Difficulty w/ Childcare or Family Care: No Living arrangements: with family Occupation/Education: unemployed Gender identity (if verbalized by the patient): Female Exam Narrative: GENERAL: Well-appearing, well-nourished, and in no acute distress. HEAD: Normocephalic, atraumatic. EYES: PERRLA and EOMI. ENT: Nares clear, no rhinorrhea or epistaxis. Mucous membranes moist. NECK: Supple. CHEST: Clear to auscultation. No respiratory distress. HEART: Regular rate and rhythm. No murmur heard. Normal peripheral pulses. ABDOMEN: Soft, nontender, nondistended, normal active bowel sounds. EXTREMITIES: Normal range of motion. No edema. SKIN: Warm, dry, no rash. NEURO: No focal deficits. Alert and oriented x3. PSYCH: Normal mood and affect. Course Course Emergency Course: Notified patient about her lab work and ultrasound findings recommended her to take ibuprofen for pain Vital Signs Vital signs: Vital Signs Temperature 36.4 C 01/26/24 13:16 Pulse Rate 80 01/26/24 13:16 Respiratory Rate 16 01/26/24 13:16 Blood Pressure 129/74 01/26/24 13:16 Pulse Oximetry 100 01/26/24 13:16 Oxygen Delivery Room Air 01/26/24 13:16 Temperature 36.4 C 01/26/24 13:16 Pulse Rate 80 01/26/24 13:16 Respiratory Rate 16 01/26/24 13:16 Blood Pressure 129/74 01/26/24 13:16 Pulse Oximetry 100 01/26/24 13:16 Oxygen Delivery Room Air 01/26/24 13:16 MDM - Abdominal Pain Lab Data 01/26/24 14:07 01/26/24 14:07 Labs: Lab Results 01/26/24 Range/Units 14:07 WBC 8.8 (4.5-10.0) K/mm3 RBC 4.47 (4.2-5.4) M/mm3 Hgb 11.4 L (12.0-15.0) g/dL Hct 36.3 L (37.0-47.0) % MCV 81.2 (80-100) fl MCH 25.5 L (26-34) pg MCHC 31.4 L (32-36) g/dl RDW 13.4 (11.5-14.5) % Plt Count 452 H (150-375) k/mm3 MPV 8.9 (7.4-10.4) fl Immature Gran % (Auto) 0.3 (0-0.5) % Neut % (Auto) 72.7 (45.5-73.1) % Lymph % (Auto) 19.3 (18.3-44.2) % [place] % (Auto) 5.3 (2.6-8.5) % Eos % (Auto) 2.2 (0-4.4) % Baso % (Auto) 0.2 (0.2-1.2) % Lymph # (Auto) 1.70 (0.9-3.2) K/mm3 [place] # (Auto) 0.5 (0.1-0.6) K/mm3 Eos # (Auto) 0.2 (0-0.3) K/mm3 Baso # (Auto) 0.0 (0.0-0.1) K/mm3 Abs Immat Gran (auto) 0.03 (0.00-0.031) K/mm3 Absolute Neuts (auto) 6.4 (1.3-6.7) K/mm3 Absolute Nucleated RBC 0.000 (0.0-0.012) K/mm3 Nucleated RBC % 0.0 (0.0-0.2) % Sodium 141 (137-145) mmol/L Potassium 4.5 (3.4-5.0) mmol/L Chloride 105 (98-107) mmol/L Carbon Dioxide 28 (22-30) mmol/L Anion Gap 8 (4-12) mmol/L BUN 8 (7-17) mg/dL Creatinine 0.60 L (0.7-1.0) mg/dL Estim Creat Clear Calc 152 ml/min Estimated GFR > 60 (59 - ) Glucose 102 (65-110) mg/dL Calcium 10.1 (8.4-10.2) mg/dL Urine Color Yellow (Yellow) Urine Appearance Clear (Clear) Urine pH 6.5 (5.0-9.0) Ur Specific [place] 1.004 (1.001-1.035) Urine Protein Negative (Negative) mg/dL Urine Glucose (UA) Negative (Negative) mg/dL Urine Ketones Negative (Negative) mg/dL Ur Blood (Man) 2+ H (Negative) Urine Nitrate Negative (Negative) Urine Bilirubin Negative (Negative) Urine Urobilinogen 0.2 (<2.0) mg/dL Leukocyte Esterase Rfl Negative (Negative) JOSE E/UL Urine RBC 0-2 (0-2) /hpf Urine WBC 0-5 (0-3) /hpf Ur Squamous Epith Cells None seen (Few) /hpf Urine Bacteria None seen /hpf Urine Casts 0-2 Imaging Data Radiologist's impression: ITS Impressions Pelvic/Transvag US 01/26/24 15:03 IMPRESSION: 1. Normal pelvis. Discharge Plan Discharge Clinical Impression: Abdominal pain, RLQ Patient Disposition: Home, Self-Care Condition: Stable Instructions: Antibiotic Form Additional Instructions: Continue home medications, take Tylenol ibuprofen for pain as needed, follow-up with your primary doctor. Prescriptions: No Action prednisone 10 mg tablet 10 mg PO BID Qty: 20 0RF ferrous gluconate 324 mg (38 mg iron) tablet albuterol sulfate 90 mcg/actuation HFA aerosol inhaler 2 puff inhalation QID PRN (Reason: shortness of breath or wheezing) Qty: 8.5 0RF Follow-up/Referrals: Mandy,MD Bryanna [Primary Care Provider] - Time of Disposition: 15:16
== END 2024-01-26 15:32 | disposition home or self-care (01) ==
PROVIDERS: Emergency Provider Family Medicine; PCP Internal Medicine
DX: R10.31 Right lower quadrant pain (principal); J45.909 Unspecified asthma, uncomplicated; D64.9 Anemia, unspecified; Z87.440 Personal history of urinary (tract) infections
CPT/HCPCS: 36415; 76830; 76856; 80048; 81001; 85025; 99284

== ENCOUNTER 2024-04-13 08:59 | Outpatient (CLI) | payer BC, MEDICAID, SELFPAY ==
--- NOTE | ~2024-04-13 | MR_ITS ---
EXAMINATION: MR shoulder LT wo con DATE: 04/13/2024 10:47 INDICATION: Left shoulder pain radiating down the left arm. TECHNIQUE: Magnetic resonance imaging (MRI) of the left shoulder was performed without intravenous c ontrast. Sequences included axial PD-weighted FS FSE, coronal oblique PD-weighted FS FSE and T2-weigh bala FS FSE, and sagittal oblique T2-weighted FS FSE and T1-weighted FSE. COMPARISON: Left clavicle radiographs 08/20/2019 FINDINGS: Coracoacromial arch: The acromion undersurface is curved in morphology (type II). The acromioclavicular joint is normal. T here is mild subacromial/subdeltoid bursitis. Rotator cuff: The supraspinatus, infraspinatus, teres minor, and subscapularis tendons are normal. The rotator cuff muscle bellies are normal. Biceps tendon and glenoid labrum: Biceps tendon is in bicipital groove. Intra-articular biceps tendon is normal. Fluid: There is a small glenohumeral joint effusion. Bones/cartilage: Glenoid cartilage is normal. Humeral head cartilage is normal. IMPRESSION: 1. Mild subacromial/subdeltoid bursitis. 2. Small glenohumeral joint effusion. Reviewed, dictated and finalized at location A.
--- NOTE | ~2024-04-13 | MR_ITS ---
EXAMINATION: MR TMJS DATE: 04/13/2024 10:45 INDICATION: Bilateral temporomandibular joint disorder. TECHNIQUE: Magnetic resonance imaging (MRI) of the temporomandibular joints was performed without int ravenous contrast in the open-mouth and closed mouth positions. COMPARISON: Head CT 08/20/2019 FINDINGS: The right temporomandibular joint demonstrates normal morphology of the mandibular condyle. There is abnormal anterior displacement of the disc in the closed mouth position. There is normal anterior tra nslation of the mandibular condyle in the open-mouth position. There is normal recapture of the disc in the open-mouth position. The left temporomandibular joint demonstrates normal morphology. There is normal position of the disc in the closed mouth and open mouth positions. There is normal anterior translation of the mandibular condyle in the open-mouth position. IMPRESSION: 1. Abnormal anterior displacement of the disc of right temporomandibular joint in the closed mouth po sition with normal recapture of the disc in the open-mouth position. 2. Normal left temporomandibular joint. Reviewed, dictated and finalized at location A. IMPRESSION: 1. Abnormal anterior displacement of the disc of right temporomandibular joint in the closed mouth position with normal recapture of the disc in the open-mout h position. 2. Normal left temporomandibular joint.
== END 2024-04-13 09:00 ==
PROVIDERS: PCP Internal Medicine; Visit Provider Pain Medicine Interventional Pain Medicine
DX: M75.52 Bursitis of left shoulder (principal); M25.412 Effusion, left shoulder; M26.69 Other specified disorders of temporomandibular joint
CPT/HCPCS: 70336; 73221

== ENCOUNTER 2024-04-14 09:39 | Emergency (ER) | payer BC, MEDICAID, SELFPAY ==
--- NOTE | ~2024-04-14 | US_ITS ---
EXAMINATION: US right upper quadrant DATE: 04/14/2024 11:23 INDICATION: Abdominal pain. TECHNIQUE: Multiple grayscale and Doppler ultrasound images of the abdomen were obtained. COMPARISON: Abdomen ultrasound 11/03/23 FINDINGS: The visualized portions of the head and body of the pancreas are normal. There is diffuse h epatic steatosis. There is normal flow in main portal vein. The gallbladder is normal in size and con tains gallstones. No gallbladder wall thickening or sonographic Power sign. The common duct is pia l and measures 2 mm. IMPRESSION: 1. Cholelithiasis. No evidence of acute cholecystitis. 2. Diffuse hepatic steatosis. Reviewed, dictated and finalized at location E.
[2024-04-14 09:47] VITALS: PULSE 85; RESP 16; TEMP 36.6; O2SAT 100
[2024-04-14 10:01] VITALS: BP 161/70; PULSE 80; RESP 16; TEMP 36.6; O2SAT 99
[2024-04-14 10:01] LABS: Basophils Percent Auto 0.3 % (0.2-1.2); Eosinophils Absolute Auto 0.3 K/mm3 (0-0.3); Eosinophils Percent Auto 2.7 % (0-4.4); Hematocrit 36.4 % (37.0-47.0); Hemoglobin 11.2 g/dL (12.0-15.0); Immature Granulocyte Absolute 0.02 K/mm3 (0.00-0.031); Immature Granulocyte Percent A 0.2 % (0-0.5); Lymphocytes Absolute Auto 2.81 K/mm3 (0.9-3.2); Lymphocytes Percent Auto 30.9 % (18.3-44.2); Mean Corpuscular HGB Conc 30.8 g/dl (32-36); Mean Corpuscular Hemoglobin 24.5 pg (26-34); Mean Corpuscular Volume 79.6 fl (80-100); Mean Platelet Volume 9.1 fl (7.4-10.4); Monocytes Absolute Auto 0.5 K/mm3 (0.1-0.6); Monocytes Percent Auto 5.4 % (2.6-8.5); Neutrophils Absolute Auto 5.5 K/mm3 (1.3-6.7); Neutrophils Percent Auto 60.5 % (45.5-73.1); Platelet Count Result 458 k/mm3 (150-375); Red Blood Count 4.57 M/mm3 (4.2-5.4); Red Cell Distribution Width 15.7 % (11.5-14.5); White Blood Count 9.1 K/mm3 (4.5-10.0)
[2024-04-14 10:14] LABS: Alanine Aminotransferase 19 U/L (6-35); Albumin Level 4.7 g/dL (3.5-5.1); Alkaline Phosphatase 50 U/L (38-126); Anion Gap 9 mmol/L (4-12); Aspartate Amino Transferase 22 U/L (14-36); Bilirubin,Total 0.4 mg/dL (0.2-1.3); Blood Urea Nitrogen 9 mg/dL (7-17); Calcium 9.3 mg/dL (8.4-10.2); Carbon Dioxide 28 mmol/L (22-30); Chloride 105 mmol/L (98-107); Estimated CRCL calculation 117 ml/min; Estimated Glomerular Filt Rate > 60; Glucose 113 mg/dL (65-110); Lipase 44 U/L (23-300); Potassium 3.9 mmol/L (3.4-5.0); Sodium 142 mmol/L (137-145)
[2024-04-14 10:31] VITALS: BP 112/69; PULSE 76; RESP 16; O2SAT 99
--- NOTE | 2024-04-14 10:38 | ED.ABDPAIN ---
HPI - Abdominal Pain General Chief Complaint: Abdominal Pain Stated Complaint: EPIGASTRIC PAIN,DIARRHEA,HX GALLSTONES Time Seen by Provider: 04/14/24 09:41 History of Present Illness HPI narrative: Patient is a 29-year-old female who presents ER with sudden onset right upper quadrant and epigastric pain. Has history of gallstones. Radiates to her right back. Associated with nausea. She was supposed to have her gallbladder removed but decided not to have the procedure this month. She now has some regret. Symptoms occurred after eating a be stick and crackers. Related Data Home Medications Medication Instructions Recorded Confirmed ferrous gluconate 324 mg (38 mg mg 04/01/21 09/13/23 iron) tablet Allergies Allergy/AdvReac Type Severity Reaction Status Date / Time sulfamethoxazole Allergy Intermediate BLISTERS Verified 04/14/24 09:40 IN MOUTH trimethoprim Allergy Intermediate BLISTERS Verified 04/14/24 09:40 IN MOUTH Review of Systems Review of Systems: All systems reviewed & are unremarkable except as noted in HPI and below Constitutional: Constitutional: Reports no additional constitutional complaints ENT: Reports system reviewed and no additional complaints, except as documented Cardiovascular: Cardiovascular: Reports no additional cardiovascular complaints Respiratory: Respiratory: Reports no additional respiratory complaints Gastrointestinal: Gastrointestinal: Reports abdominal pain, Reports diarrhea, Reports nausea and Denies vomiting Musculoskeletal: Musculoskeletal: Reports no additional musculoskeletal complaints PMFSH Past Medical History Medical History Anemia receives iron infusions Anxiety Asthma Depression Prolapsed bladder UTI (urinary tract infection) Surgical History Surgical History Delivery by section H/O dilation and curettage Hx of section Hx of tubal ligation Family History Family History Mother Heart disease Hypertension Social History Social History Smoking status: Never smoker Alcohol intake: never Substance use type: does not use Lack of Transportation: No Lack of Food: Never True Current Housing: I Have Housing Concerned About Future Housing: No Difficulty Paying Gas/Electric Bills: No Difficulty Paying for Meds: No Currently Unemployed: No Education: High School Diploma/GED Difficulty w/ Childcare or Family Care: No Living arrangements: with family Occupation/Education: unemployed Gender identity (if verbalized by the patient): Female Exam Narrative: GENERAL: Well-appearing, morbidly obese, and in no acute distress. HEAD: Normocephalic, atraumatic. ENT: Mucous membranes moist. CHEST: Clear to auscultation. No respiratory distress. HEART: Regular rate and rhythm. Normal peripheral pulses. ABDOMEN: Soft, TTP in the RUQ w/o guarding, nondistended. EXTREMITIES: Normal range of motion. No edema. SKIN: Warm, dry, no rash. NEURO: Alert and oriented x3. PSYCH: Normal mood and affect. Course Vital Signs Vital signs: Vital Signs Temperature 97.8 F 04/14/24 09:47 Pulse Rate 85 04/14/24 09:47 Respiratory Rate 16 04/14/24 09:47 Pulse Oximetry 100 04/14/24 09:47 Oxygen Delivery Room Air 04/14/24 09:47 Temperature 97.8 F 04/14/24 09:47 Pulse Rate 85 04/14/24 09:47 Respiratory Rate 16 04/14/24 09:47 Pulse Oximetry 100 04/14/24 09:47 Oxygen Delivery Room Air 04/14/24 09:47 MDM - Abdominal Pain Lab Data 04/14/24 09:50 04/14/24 09:50 Labs: Lab Results 04/14/24 04/14/24 Range/Units 09:50 11:08 WBC 9.1 (4.5-10.0) K/mm3 RBC 4.57 (4.2-5.4) M/mm3 Hgb 11.2 L (12.0-15.0) g/dL Hct 36.4 L (37.0
[2024-04-14 11:00] VITALS: BP 140/95; PULSE 78; RESP 16; TEMP 36.6; O2SAT 98
[2024-04-14] MEDS: MORPHINE SULFATE (*CRX) 4 MG/ML INJ 2 MG IV PUSH (11:06)
[2024-04-14] MEDS: ONDANSETRON INJ 4 MG/2 ML VIAL IV PUSH (11:07)
[2024-04-14 11:16] LABS: Appearance Urine Clear (Clear); Bacteria Urine Rare /hpf; Bilirubin Urine Negative (Negative); Blood Urine Negative (Negative); Color Urine Yellow (Yellow); Glucose Urine UA Negative (Negative); Ketones Urine Negative (Negative); Leukocyte Esterase Ur 1+ LEU/UL (Negative); Nitrate Urine Negative (Negative); Non Pathogenic Casts 0-2; Protein Urine Negative (Negative); RBC Urine 0-2 /hpf (0-2); Squamous Epithelial Cell Urine Few /hpf (Few); Urobilinogen Urine 0.2 mg/dL (<2.0)
[2024-04-14 11:18] LABS: Add Urine Microscopic? NO
[2024-04-14 12:00] VITALS: BP 128/68; PULSE 70; RESP 16; TEMP 36.6; O2SAT 99
== END 2024-04-14 12:54 | disposition home or self-care (01) ==
PROVIDERS: Emergency Provider Emergency Medicine; PCP Internal Medicine
DX: K80.20 Calculus of gallbladder without cholecystitis without obstruction (principal); D64.9 Anemia, unspecified; J45.909 Unspecified asthma, uncomplicated; Z87.440 Personal history of urinary (tract) infections; K76.0 Fatty (change of) liver, not elsewhere classified
CPT/HCPCS: 36415; 76705; 80053; 81003; 81025; 83690; 85025; 87086; 87088; 96374; 96375; 99284; J2270; J2405

== ENCOUNTER 2024-07-16 16:29 | Emergency (ER) | payer OTHER, BC, MEDICAID, SELFPAY ==
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
[2024-07-16 17:13] VITALS: BP 146/90; PULSE 91; RESP 16; TEMP 36.8; O2SAT 99
--- NOTE | 2024-07-16 17:22 | PC.NURSE ---
Pt states I have alot of spinal compressions. Basically, my whole spine is messed up. I see a pain management Pt with cervical collar intact.
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
[2024-07-16] MEDS: ACETAMINOPHEN 325 MG TABLET 650 MG PO (18:33)
[2024-07-16] MEDS: HYDROcodone/acetaminophen (*CRX) 5-325 MG TABLET 1 TAB PO (18:34)
[2024-07-16 20:30] VITALS: BP 146/82; PULSE 89; RESP 14; O2SAT 100
[2024-07-16] MEDS: KETOROLAC 30 MG/ML VIAL (*BKC) IM (20:46)
== END 2024-07-16 20:53 | disposition home or self-care (01) ==
PROVIDERS: Emergency Provider Physician Assistant; PCP Internal Medicine
DX: S16.1XXA Strain of muscle, fascia and tendon at neck level, initial encounter (principal); J45.909 Unspecified asthma, uncomplicated; D64.9 Anemia, unspecified; Z87.440 Personal history of urinary (tract) infections; V49.40XA Driver injured in collision with unspecified motor vehicles in traffic accident, initial encounter
CPT/HCPCS: 70450; 72125; 72128; 72131; 96372; 99284; A9270; J1885

== ENCOUNTER 2024-09-08 04:33 | Emergency (ER) | payer BC, MEDICAID, SELFPAY ==
--- NOTE | ~2024-09-08 | XR_ITS ---
EXAMINATION: XR elbow RT 2V DATE: 09/08/2024 04:57 INDICATION: Right elbow injury. TECHNIQUE: 2 views right elbow were obtained. COMPARISON: None. FINDINGS: Alignment is normal. No fracture. Joint spaces are normal. No elbow joint effusion. IMPRESSION: 1. Normal right elbow. Reviewed, dictated and finalized at location A. ING SORTER IMPRESSION: 1. Normal right elbow.
[2024-09-08 04:33] VITALS: BP 149/80; PULSE 88; RESP 16; TEMP 36.8; O2SAT 100
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
[2024-09-08 06:05] VITALS: BP 142/90; PULSE 72; RESP 16; O2SAT 100
== END 2024-09-08 06:14 | disposition home or self-care (01) ==
PROVIDERS: Emergency Provider Student in an Organized Health Care Education/Training Program; PCP Internal Medicine
DX: S50.01XA Contusion of right elbow, initial encounter (principal); W22.8XXA Striking against or struck by other objects, initial encounter; F41.8 Other specified anxiety disorders; J45.909 Unspecified asthma, uncomplicated
CPT/HCPCS: 73070; 99283

== ENCOUNTER 2024-10-23 15:18 | Outpatient (CLI) | payer BC, MEDICAID, SELFPAY ==
--- NOTE | ~2024-10-23 | XR_ITS ---
XR lumbar spine 2-3V 10/23/2024 15:53 Indication: Back pain Procedure: 3 views lumbar spine Comparison: 01/22/2015 Findings: Mild levoscoliosis. There is facet hypertrophy at L4-5 and L5-S1. No evidence for spondylol isthesis. No acute fracture or traumatic malalignment. Impression: 1: Mild lumbar spondylosis. Reviewed, dictated and finalized at location A. MA NURSE Impression: 1: Mild lumbar spondylosis.
--- NOTE | ~2024-10-23 | XR_ITS ---
XR cervical spine 4-5V INDICATION: Spondylosis TECHNIQUE: 5 views cervical spine views of the cervical spine. FINDINGS: No prior studies for comparison. The cervical spine is visualized to the cervicothoracic junction. There is no prevertebral soft tiss ue swelling, listhesis, or loss of vertebral body height. Intervertebral disc spaces are normal. Th e osseous central canal is patent. No displaced cervical spine fractures are identified. IMPRESSION: 1. No acute osseous abnormality of the cervical spine. Reviewed, dictated and finalized at location A. RETTE PACKER
--- NOTE | ~2024-10-23 | XR_ITS ---
XR thoracic spine 3V 10/23/2024 15:53 Indication: Back pain Procedure: 3 views thoracic spine Comparison: 10/23/2024 Findings: There is mild levocurvature of the lower thoracic spine. Vertebral body heights are maintai ansley. Mild multilevel degenerative disc disease and endplate hypertrophy. No acute fracture or traumat ic malalignment. No evidence for spondylolisthesis. Impression: 1: Mild thoracic spondylosis. Reviewed, dictated and finalized at location A. ARCHITECT Impression: 1: Mild thoracic spondylosis.
== END 2024-10-23 15:19 | disposition home or self-care (01) ==
DX: M47.22 Other spondylosis with radiculopathy, cervical region (principal); M47.23 Other spondylosis with radiculopathy, cervicothoracic region; M47.26 Other spondylosis with radiculopathy, lumbar region; E66.9 Obesity, unspecified; F41.1 Generalized anxiety disorder
CPT/HCPCS: 72050; 72072; 72100

== ENCOUNTER 2025-03-13 15:12 | Outpatient (CLI) | payer BC, MEDICAID, SELFPAY ==
--- NOTE | ~2025-03-13 | MR_ITS ---
MRI of the lumbar spine Clinical History: Radiculopathy Technique: Axial T2-weighted images, and sagittal T1-weighted, T2-weighted, and T2 fat-sat images wer e acquired. Findings: There is no fracture or subluxation of the lumbar spine. Vertebral bodies maintain normal h eight and alignment. No bone marrow signal abnormality seen. At L1-L2, there is moderate degenerative disc narrowing. There is minimal disc bulge with mild facet arthropathy. No central canal stenosis or neural foraminal narrowing. At L2-L3, there is mild degenerative disc change. No disc bulge or herniation. No spinal canal stenos is or neural foraminal narrowing. At L3-L4, there is no disc bulge or herniation. There is moderate facet hypertrophy. No spinal canal stenosis or neural foraminal narrowing. At L4-L5, there is mild disc desiccation with minimal disc bulge and moderate to advanced facet arthr opathy. No central canal stenosis or neural foraminal narrowing. At L5-S1, there is minimal disc bulge with mild to moderate facet arthropathy. No central canal steno sis or neural foraminal narrowing. Paravertebral soft tissues are unremarkable. Impression: Mild degenerative spondylosis overall, as detailed above. Reviewed, dictated and finalized at location . Impression: Mild degenerative spondylosis overall, as detailed above.
== END 2025-03-13 15:13 | disposition home or self-care (01) ==
LOC: MICIMG 15:13
PROVIDERS: Visit Provider Pain Medicine Interventional Pain Medicine
DX: M47.896 Other spondylosis, lumbar region (principal)
CPT/HCPCS: 72148

== ENCOUNTER 2025-05-09 19:01 | Emergency (ER) | payer BC, MEDICAID, SELFPAY ==
--- NOTE | ~2025-05-09 | XR_ITS ---
EXAM: XR ankle LT min 3V, XR foot LT min 3V DATE: 05/09/2025 19:22 HISTORY: dorsal foot pain/lateral ankle pain . COMPARISON: None available. FINDINGS: Normal mineralization. No fracture or dislocation. No lytic or blastic lesion. Mild degene rative change at the first MTP joint. No erosion or periosteal change. Soft tissues within normal kearns its. IMPRESSION: No acute osseous finding in the left ankle or left foot. Reviewed, dictated and finalized at location K. IMPRESSION: No acute osseous finding in the left ankle or left foot.
--- NOTE | 2025-05-09 19:04 | ED_ITS ---
HPI - Extremity Injury (Lower) General Chief Complaint: Extremity Injury, Lower Stated Complaint: LT foot/ankle injury Time Seen by Provider: 05/09/25 19:35 Source: patient and RN notes reviewed Mode of arrival: ambulatory Limitations: no limitations History of Present Illness HPI Narrative: 30-year-old female presents with concern for health left foot ankle pain. Reports she has had generalized foot pain for a few weeks without injury. Reports 2 days ago she stepped down from a step and heard a crack in her foot. Reports since then she has had dorsal foot and ankle pain. She reports dorsal tenderness. She denies bruising, redness, warmth. complaint: foot injury Related Data Home Medications ?Medication ?Instructions ?Recorded ?Confirmed ?Last Taken ?Type ferrous gluconate 324 mg (38 mg mg 04/01/21 09/13/23 Unknown History iron) tablet hydrocodone 10 mg-acetaminophen tablet 05/09/25 Unknown History 325 mg tablet Allergies Allergy/AdvReac Type Severity Reaction Status Date / Time sulfamethoxazole Allergy Intermediate BLISTERS Verified 05/09/25 19:15 IN MOUTH trimethoprim Allergy Intermediate BLISTERS Verified 05/09/25 19:15 IN MOUTH Review of Systems Review of Systems: CONSTITUTIONAL: Denies malaise, chills, sweats, or fever. SKIN: Denies rash or itching, open skin, laceration, abrasion, redness, warmth MUSCULOSKELETAL: Reports left ankle and foot pain NEUROLOGIC: Denies numbness, weakness All systems reviewed & are unremarkable except as noted in HPI and below PMFSH Past Medical History Medical History Anemia receives iron infusions Anxiety Asthma Depression Prolapsed bladder UTI (urinary tract infection) Surgical History Surgical History Delivery by section H/O dilation and curettage Hx of section Hx of tubal ligation Family History Family History Mother Heart disease Hypertension Social History Social History Smoking status: Never smoker Alcohol intake: never Substance use type: does not use Lack of Transportation: No Lack of Food: Never True Current Housing: I Have Housing Concerned About Future Housing: No Difficulty Paying Gas/Electric Bills: No Difficulty Paying for Meds: No Currently Unemployed: No Education: High School Diploma/GED Difficulty w/ Childcare or Family Care: No Living arrangements: with family Occupation/Education: unemployed Gender identity (if verbalized by the patient): Female Comments At time of signature, agree with nursing past medical, surgical, social and family history. There is no relevant family history pertinent to the presenting complaint Exam Narrative: GENERAL: Well-appearing, well-nourished, and in no acute distress. HEAD: Normocephalic, atraumatic. EYES: PERRLA, conjunctivae clear NECK: Supple. CHEST: Speaks in full sentences. No respiratory distress. HEART: Regular rate and rhythm. Normal and equal peripheral pulses. EXTREMITIES: Left foot, ankle, digits have grossly normal strength and sensation, grossly normal range of motion. No edema or ecchymosis. Normal sensation with sensitivity to light touch and pain. No point tenderness. No open wounds, no skin tenting, no devitalized tissue or atrophy, no trophic changes, no obvious deformity, alignment normal, nearby joints and structures intact. Distal pulses palpable and equal bilaterally, skin warm, dry, pink. Capillary refill less than 3 seconds. SKIN: Warm, dry, no rash. NEURO: Alert and oriented x3. PSYCH: Normal mood and affect Course Course Emergency Course: Patient is aware of diagnosis, understands and agrees to treatment plan. Anticipatory guidance given. Patient agrees to follow-up as directed and is aware of reasons to seek care at the emergency department. Portions of this record may have been created with voice recognition software Level of Care: Express Care Visit Vital Signs Vital signs: Reviewed. MDM - Extremity Injury (Lower) MDM Narrative Medical decision making narrative: The patient was evaluated by myself in the express care. History is obtained from patient who is an independent historian and physical exam was performed.? Available medical records were reviewed at this time. ? Exam findings show no acute concerns or changes; patient is non-toxic appearing and is in no distress. Patient is appropriate for outpatient treatment and follow-up. ? I have evaluated and discussed social determinants of health with the patient that could potentially impact subsequent diagnosis and treatment plans. ? Patients injury and pain is consistent with musculoskeletal etiology. No signs of neurological or vascular compromise on exam. Compartments and tissues are soft without signs of compartment syndrome. Pain is felt appropriate for further evaluation on an outpatient basis. Imaging Data My impression: Images reviewed, interpreted by radiologist, agree, see report. Radiologist's impression: EXAM: XR ankle LT min 3V, XR foot LT min 3V DATE: 05/09/2025 19:22 HISTORY: dorsal foot pain/lateral ankle pain . COMPARISON: None available. FINDINGS: Normal mineralization. No fracture or dislocation. No lytic or blastic lesion. Mild degenerative change at the first MTP joint. No erosion or periosteal change. Soft tissues within normal limits. IMPRESSION: No acute osseous finding in the left ankle or left foot. Critical Care Time Critical Care Time Critical Care Time: No Discharge Plan Discharge Clinical Impression: Foot sprain Patient Disposition: Home Condition: Stable Instructions: Foot Sprain (ED) Additional Instructions: Avoid activities that cause pain until the pain subsides. Ice to the area 20-30 minutes 4-6 times a day Elevate above heart Elastic wrap as directed for comfort for the next 5-7 days Tylenol for lesser pain Ibuprofen regularly for the next 2-3 days for the inflammation Follow up with your primary care provider if the condition is not improving within 1 week. If the condition worsens with numbness, tingling, decrease sensation with weakness seek treatment in the emergency room immediately. Patient Language: [place] Prescriptions: No Action hydrocodone-acetaminophen 10-325 mg tablet prednisone 10 mg tablet 10 mg PO BID Qty: 20 0RF cyclobenzaprine 10 mg tablet 10 mg PO TID PRN (Reason: muscle spasm) Qty: 14 0RF ferrous gluconate 324 mg (38 mg iron) tablet albuterol sulfate 90 mcg/actuation HFA aerosol inhaler 2 puff inhalation QID PRN (Reason: shortness of breath or wheezing) Qty: 8.5 0RF hydrocodone-acetaminophen 5-325 mg tablet 1 tablet PO Q6H PRN (Reason: pain) Qty: 10 0RF ondansetron 4 mg tablet,disintegrating 4 mg PO Q6H PRN (Reason: nausea and vomiting) Qty: 10 0RF Follow-up/Referrals: Mandy,MD Bryanna [Primary Care Provider] - Time of Disposition: 19:44
[2025-05-09 19:12] VITALS: BP 132/85; PULSE 72; RESP 16; TEMP 36.4; O2SAT 100
== END 2025-05-09 19:51 | disposition home or self-care (01) ==
PROVIDERS: Emergency Provider Nurse Practitioner; PCP Internal Medicine
DX: S93.602A Unspecified sprain of left foot, initial encounter (principal); X58.XXXA Exposure to other specified factors, initial encounter; J45.909 Unspecified asthma, uncomplicated; D64.9 Anemia, unspecified
CPT/HCPCS: 73610; 73630; 99213; G0463

== ENCOUNTER 2025-05-10 22:44 | Emergency (ER) | payer BC, MEDICAID, SELFPAY ==
--- NOTE | ~2025-05-10 | CT_ITS ---
EXAMINATION: CT abdomen pelvis wo con DATE: 05/11/2025 01:25 INDICATION: Right hip, right low back and lower abdominal pain. TECHNIQUE: Computed tomography (CT) of the abdomen and pelvis was performed without intravenous contr ast. Automated exposure control and iterative reconstruction technique were employed. The dose-length product was 1610.18 mGy-cm. COMPARISON: 12/19/2022 FINDINGS: Lung bases are clear. Heart size normal. No pericardial or pleural effusion. Multiple low density gal lstones within the otherwise normal-appearing gallbladder. Liver, spleen, pancreas and bilateral adre nal glands are normal. 6 mm hyperdense proteinaceous/hemorrhagic cyst at the upper pole of the left k idney. Kidneys and ureters are otherwise unremarkable with no urolithiasis or hydronephrosis. Bowels including the appendix are normal. Bladder and anteverted uterus are unremarkable. There are couple c lips along the anterior/inferior margin of the anteverted uterus suggestive of displaced tubal ligati on clips. Bilateral ovaries are unremarkable. No free intraperitoneal gas or fluid. No pathologically enlarged abdominal or pelvic lymphadenopathy. Small fat-containing umbilical hernia. Minimal to mode rate lumbar and moderate lower thoracic spondylosis. Chronic mild likely physiologic anterior wedging at T11. IMPRESSION: 1. No acute intra-abdominal/pelvic process. 2. Couple clips along the anterior margin of the uterine fundus suggesting displaced tubal ligation c lips. Correlate with surgical history. Reviewed, dictated and finalized at location A. IMPRESSION: 1. No acute intra-abdominal/pelvic process. 2. Couple clips along the anterior margin of the uterine fundus suggesting disp laced tubal ligation clips. Correlate with surgical history.
--- NOTE | ~2025-05-10 | XR_ITS ---
EXAMINATION: XR knee RT min 4V DATE: 05/10/2025 23:45 INDICATION: Right knee injury post fall TECHNIQUE: Anteroposterior, oblique and crosstable lateral views of the right knee were obtained COMPARISON: 12/03/2023 FINDINGS: Alignment is normal. No fracture. At least mild tricompartmental osteoarthritis at the right knee wi th small marginal ossified small 3 compartments and mild joint space narrowing in the lateral compart ment although severity of joint space narrowing can be underestimated on nonweightbearing imaging. No joint effusion/layering lipohemarthrosis. Soft tissues are unremarkable. IMPRESSION: 1. Mild tricompartmental osteoarthritis at the right knee. No joint effusion or acute osseous abnorma lity. Reviewed, dictated and finalized at location A. IMPRESSION: 1. Mild tricompartmental osteoarthritis at the right knee. No joint effusion or acute osseous abnormality.
--- OUTSIDE RECORDS SUMMARY | 2025-05-10 22:47 | XMS_ITS | Clinical Summary ---
Author Organization [facility] Address [address], [facility] [address] [place] [address] Phone Care Team Providers Care Lpn Or Medical Assistant Name Role Phone Brant Frances MD Primary Care Provider [phone] Lavern Waite PAC Unavailable Allergies Active Allergy Reactions Criticality Noted Date Comments Sulfamethoxazole-Trimethoprim Rash 2018 Medications albuterol 108 (90 Base) MCG/ACT Aerosol Solution INL 2 PFS PO Q 4 H 2 03/24/2019 Active Active Problems Problem Noted Date Diagnosed Date Iron deficiency anemia due to chronic blood loss 05/23/2019 Thrombocytosis 05/23/2019 Abnormal bleeding in menstrual cycle 05/23/2019 History of molar 05/23/2019 Hematuria 05/23/2019 cardiomyopathy 05/23/2019 Family History Medical History Relation Name Comments Heart Attack Father Congestive Heart Failure Mother Depression Mother Diabetes Mother Heart Disease Mother Relation Name Status Comments Father Mother Alive Social History Tobacco Use Types Packs/Day Years Used Date Smoking Tobacco: Former Smokeless Tobacco: Never Comments:only social smoking Alcohol Use Standard Drinks/Week Comments Not Currently 0 (1 standard drink = 0.6 oz pur e alcohol) PHQ-2 Answer Date Recorded PHQ-2 Score 0 06/07/2019 Comments Unknown Sex and Gender Information Value Date Recorded Sex Assigned at Not on file Legal Sex Female 11:27 AM CDT Gender Identity Not on file Sexual Orientation Not on file Last Filed Vital Signs Vital Sign Reading Time Taken Comments Blood Pressure 130/80 05/29/2019 2:35 PM CDT Pulse 78 05/29/2019 2:35 PM CDT Temperature 36.7 C (98 F) 05/29/2019 2:35 PM CDT Respiratory Rate 20 05/29/2019 2:35 PM CDT Oxygen Saturation 98% 05/29/2019 2:35 PM CDT Inhaled Oxygen Concentration - - Weight 130.6 kg (288 lb) 05/23/2019 2:00 PM CDT Height 167.6 cm (5' 6) 05/23/2019 2:00 PM CDT Body Mass Index 46.48 05/23/2019 2:00 PM CDT Plan of Treatment Health Maintenance Due Date Last Done Comments Hepatitis C Virus (HCV) Screening 1993 Human Papillomavirus (HPV) Immunization (2 - 2-dose series) 10/03/2007 04/03/2007 Pap Smear 2014 Cervical Cancer Screening (CCS) 2023 HPV/Cotest 2023 SARS-COV-2 Immunization ( season) 2024 Influenza Immunization (#1) 2025 08/26/2010 Respiratory Syncytial Virus (RSV) Immunization (Adult) (1 - 1-dose 75+ series) 01/22/2068 Hepatitis B Immunization Completed 994, 1993, 1993 DTaP/Tdap/Td Immunization Discontinued 2006, 03/18/1998, 04/25/1994, Additional history exists TdaP Immunization Completed 04/03/2007 Meningococcal Immunization (ACWY) Aged Out No longer eligible based on patient's age to complete this topic Pneumococcal Immunization Combined Aged Out No longer eligible based on patient's age to complete this topic Rotavirus Immunization Aged Out No lo nger eligible based on patient's age to complete this topic Insurance MEDICAID [facility] [employer] Care Teams Lpn Or Medical Assistant Relationship Specialty Start Date End Date Brant Frances MD PCP - General Internal Medicine 05/10/19 Lavern Waite, [address] [place] [address] Referring Provider 05/10/19
--- OUTSIDE RECORDS SUMMARY | 2025-05-10 22:47 | XMS_ITS | Continuity of Care Document ---
Author Organization [facility] Address [address] [place] [address] [place] [address] Phone Care Team Providers Care Supervisor Metal Furniture Fabrication Name Role Phone Dick Salinas MD Unavailable Unavailable Allergies, Adverse Reactions, Alerts Substance Reaction Status Criticality No Known Allergies Active No Inform ation Medications Medication Instructions Dosage Effective Dates (start - stop) Status Comments Ultram 50 mg tablet take 1 tablet by oral route every 6 hours as needed - Active PRN for pain, avoid driving or operate machines Robaxin-750 750 mg tablet take 1 tablet by oral route every 6 hours as needed 750 MG - Active PRN for pain, avoid driving or operate machines Procedures Procedure Date PREV VISIT, NEW, AGE 18-39 Advance Directives Directive Yes / No Effective Date File Name No Information Encounters Encounter Description Practice Location Reason(s) For Visit Diagnoses Date Provider Providers Copied on Encounter [facility], [address] [place], [id number], tel:[phone] [facility] No Information Brad Jennings. [address], [address] [place], [id number], [place]. tel:[phone] Referring Provider: Dick Salinas, [address], [place], [place], [id number]. tel:[phone] PREV VISIT, NEW, AGE 18-39 [facility], [address], [place], [place], [id number], [place] tel:[phone] [facility] PHysical (chief complaint) Encntr for general adult medical exam w/o abnormal findings Brad Jennings. [address], [place], [place], [id number], . tel:[phone] Referring Provider: Stephany Jaime [address], [place], [place], [id number]. tel:[phone] Family History Family Member Type Diagnosis Age At Onset Mother Problem (finding) Alive and well Father Problem (finding) Unknown Mother Problem (finding) Cardiomyopathy 40 Father Problem (finding) Alive and well Payers Payer name Insurance type Covered democrat ID Authoriza tion(s) No Information Social History Type Description Quantity Date Captured Comments Alcohol Use Details Unknown Caffeine Use Details Unknown Tobacco Use Status No Information Smoking Status No Information Sex Female Chief Complaint And Reason For Visit No Information Plan Of Treatment Date Type Action Status Referral Ordered: Physical Therapy (related to Encntr for general adult medical exam w/o abnormal findings) ordered Referral Ordered: Prem Steawrt (related to Encntr for general adult medical exam w/o abnormal findings) ordered Referral Referred To: Physical Therapy Ordered: Referrals: Physical Therapy. Evaluate and treat ordered Referral Referred To: Prem Stewart [address] [place], [phone] Ordered: Referrals: Prem Stewart. Evaluate and treat ordered History Of Present Illness Encounter Date Complaint History Of Prese nt Illness PHysical Pt needs annual physical. Pt is overweight. Pt has chronic low back pain with mild right sciatica. Pt notices mild right leg numbness. Pt states that she could not stand for long time due to back pain. Pt has 7/10 low back pain daily Pt was getting some norco PRN for pain from her previous PCP but was told that she needs to see a pain management but she could not find a pain management Pt denies any other complaints Instructions Date Instruction Additional Infor mation Prescribed Activity and Exercise Education Related to Dietary Surveillance and Counseling Prescribed Diet Educ ation/Lifestyle Education Regarding Diet Related to Dietary Surveillance and Counseling Assessments Type Assessment Date No Information
--- OUTSIDE RECORDS SUMMARY | 2025-05-10 22:47 | XMS_ITS | Encounter Summary ---
Author Organization [facility] - [facility] Address [facility] [place] [address] Care Team Providers Care Technical Training Manager Name Role Phone Bryanna Galvan MD Primary Care Provider [phone] Encounter Details Date Type Department Care Team (Latest Contact Info) Description 11/06/2023 Red Seraphimt Message Enc [facility] Medical Group Multispecialty Care - [place] [address] [address] [address] [place], [place] [id number] Bryanna Galvan MD [address] [address] Abdominal ultrasound Social History Tobacco Use Types Packs/Day Years Used Date Smoking Tobacco: Never Smokeless Tobacco: Never Comments:Counseled by Dr. Geeta kaplan. PHQ-2 Answer Date Recorded Patient Health Questionnaire-2 Score 0 10/04/2023 Comments Unknown Sex and Gender Information Value Date Recorded Sex Assigned at Not on file Legal Sex Female 2:27 PM CDT Gender Identity Not on file Sexual Orientation Not on file documented as of this encounter Plan of Treatment Not on file documented as of this encounter Visit Diagnoses Not on filedocumented in this encounter Additional Health Concerns Assessment Noted Time PHQ-9 Depression Total Score: 2 10/04/20 23 11:23 AM QA LEAD documented as of this encounter Care Teams Technical Training Manager Relationship Specialty Start Date End Date Bryanna Galvan MD 1188 [facility] [address] [place], [place] [id number] PCP - General INTERNAL MEDICINE 10/04/23 documented as of this encounter
--- OUTSIDE RECORDS SUMMARY | 2025-05-10 22:47 | XMS_ITS | Encounter Summary ---
Author Organization [facility] - [facility] Address [facility] [place] [address] Care Team Providers Care Pigment Furnace Tender Name Role Phone Bryanna Galvan MD Primary Care Provider [phone] Encounter Details Date Type Department Care Team (Latest Contact Info) Description 10/05/2023 Mabaya Message Enc [facility] Medical Group Multispecialty Care - [place] [address] [address] [place], [place] [phone] Bryanna Galvan MD [address] [address] Chiari malformation type 1 Social History Tobacco Use Types Packs/Day Years [...] Total Score: 2 10/04/20 23 11:23 AM MALT LOADER documented as of this encounter Care Teams Pigment Furnace Tender Relationship Specialty Start Date End Date Bryanna Galvan MD 1188 [facility] [address] [place], [place] [id number] PCP - General INTERNAL MEDICINE 10/04/23 documented as of this encounter
--- OUTSIDE RECORDS SUMMARY | 2025-05-10 22:47 | XMS_ITS | Encounter Summary ---
Author Organization [facility] Healthcare Address [address] [place] [address] Care Team Providers Care Marketing Operations Analyst Name Role Phone Bryanna Galvan MD Primary Care Provider [phone] Encounter Details Date Type Department Care Team (Late st Contact Info) Description 03/26/2025 Results Follow-Up [facility] Medical Group Convenient Care at [address] [id number] Kristen Jacobs NP [address] [facility] [address] [place] [address] XR Knee Right 3 Views Social History Tobacco Use Types Packs/Day Years Used Date Smoking Tobacco: Former Cigarettes 0.1 1 0 10/09/2017 - 10/09/2018 Smokeless Tobacco: Never Comments No Sex and Gender Information Value Date Recorded Sex Assigned at Not on file Legal Sex Female 1:40 AM MEDICAL MALPRACTICE [place] Gender Identity Female 09/01/2021 4:56 AM MEDICAL MALPRACTICE PARALEGAL Sexual Orientation Not on file documented as of this encounter Plan of Treatment Not on file documented as of this encounter Visit Diagnoses Not on filedocumented in this encounter Care Teams Marketing Operations Analyst Relationship Specialty Start Date End Date Bryanna Galvan MD [address] [place] [address] PCP - General Internal Medicine 12/24/23 documented as of this encounter
--- OUTSIDE RECORDS SUMMARY | 2025-05-10 22:47 | XMS_ITS | Encounter Summary ---
Author Organization [facility] - [facility] Address [facility] [place] [address] Care Team Providers Care Regulatory Affairs Spec Name Role Phone Bryanna Galvan MD Primary Care Provider [phone] Encounter Details Date Type Department Care Team (Latest Contact Info) Description 11/21/2023 Arizona Kitchenst Message Enc [facility] Medical Group Multispecialty Care - [place] [address] [address] [place], [place] [id number] Bryanna Galvan MD [address] [id number] Gallbladder and blood sugar Social History Tobacco Use Types Packs/Day Years [...] Total Score: 2 10/04/20 23 11:23 AM FRENCH FOLDER documented as of this encounter Care Teams Regulatory Affairs Spec Relationship Specialty Start Date End Date Bryanna Galvan MD [address] [facility] [address] [place], [place] [address] PCP - General INTERNAL MEDICINE 10/04/23 documented as of this encounter
--- OUTSIDE RECORDS SUMMARY | 2025-05-10 22:47 | XMS_ITS | Encounter Summary ---
Author Organization [facility] Facility Care Team Providers Care Restaurant Supervisor Name Role Phone Miscellaneous, Not In File Primary Care Provider Unavailable Wei Chew Primary Care Provider Unavaila Sanjana Silver NP Primary Care Provider [phone] Bryanna Galvan MD Primary Care Provider [phone] Encounter Details Date Type Department Care Team (Latest Contact Info) Description 11/25/2015 Orders Only [facility]INCONV Provider, MD Ino [address] [place] [address] Social History Tobacco Use Types Packs/Day Years Used Date Smoking Tobacco: Never Assessed Comments Unknown Sex and Gender Information Value Date Recorded Sex Assigned at Not on file Legal Sex Female 1:40 AM HAND TILE MAKER Gender Identity Female 09/01/2021 4:56 AM HAND TILE MAKER Sexual Orientation Not on file documented as of this encounter Plan of Treatment Not on file documented as of this encounter Procedures Procedure Name Priority Date/Time Associated Diagnosis Comments SCAN - LABS 12/02/2015 12:00 AM HAND TILE MAKER SCAN - LABS 12/02/2015 12:00 AM HAND TILE MAKER SCAN - LABS 12/02/2015 12:00 AM HAND TILE MAKER documented in this encounter Results * SCAN - LABS (12/02/2015 12:00 AM HAND TILE MAKER) Narrative 12/02/2015 12:00 AM HAND TILE MAKER Ordered by an unspecified provider. Historical Provider Final Res ult * SCAN - LABS (12/02/2015 12:00 AM HAND TILE MAKER) Narrative 12/02/2015 12:00 AM HAND TILE MAKER Ordered by an unspecified provider. Historical Provider MD Final Res ult * SCAN - LABS (12/02/2015 12:00 AM HAND TILE MAKER) Narrative 12/02/2015 12:00 AM HAND TILE MAKER Ordered by an unspecified provider. Historical Provider MD Final Res ult documented in this encounter Visit Diagnoses Not on filedocumented in this encounter Care Teams Restaurant Supervisor Relationship Specialty Start Date End Date Miscellaneous, Not In File PCP - General 01/24/17 Wei Chew PCP - General 01/26/18 12/26/18 Sanjana Clemente NP PCP - General Nurse Practitioner 05/04/21 12/23/23 Bryanna Galvan MD [address] [place] [address] PCP - General Internal Medicine 12/24/23 documented as of this encounter
--- OUTSIDE RECORDS SUMMARY | 2025-05-10 22:47 | XMS_ITS | Encounter Summary ---
Author Organization [facility] Address [facility] [place] [address] Care Team Providers Care Reading Instructor Name Role Phone Bryanna Galvan MD Primary Care Provider [phone] Encounter Details Date Type Department Care Team (Late st Contact Info) Description 02/08/2024 Apprenda Message [facility] Medical Group Orthopedic & Sports Medicine [address] [address] [place], [facility] Provider Physical therapy Social History Tobacco Use Types Packs/Day Years Used Date Smoking Tobacco: Never Passive Smoke Exposure: Never Smokeless Tobacco: Never Comments:Counseled by Dr. Geeta kaplan. Alcohol Use Standard Drinks/Week Comments Not Currently 0 (1 standard drink = 0.6 oz pur e alcohol) PHQ-2 Answer Date Recorded Patient Health Questionnaire-2 Score 0 12/28/2023 Comments Unknown Sex and Gender Information Value [...] Total Score: 2 10/04/20 23 11:23 AM PERSONAL INJURY ATTORNEY documented as of this encounter Care Teams Reading Instructor Relationship Specialty Start Date End Date Bryanna Galvan MD [address] [address] PCP - General INTERNAL MEDICINE 10/04/23 documented as of this encounter
--- OUTSIDE RECORDS SUMMARY | 2025-05-10 22:47 | XMS_ITS | Continuity of Care Document ---
Author Organization [facility] Address [address] [place] [address] Phone Care Team Providers Care Brand Manager Name Role Phone Hubert MITCHELL, Nima LU Unavailable Unavailab le Hubert MITCHELL FACC, Usman Unavailable Unavailab le Allergies, Adverse Reactions, Alerts Substance Reaction Status Criticality trimethoprim Unknown(severe) Active No Informati on sulfamethoxazole Unknown(severe) Active No Infor mation Medications Medication Instructions Dosage Effective Dates (start - stop) Status Comments hydrocodone 10 mg-acetaminophen 325 mg tablet - Active cyclobenzaprine 10 mg tablet TAKE 1 TABLET BY MOUTH THREE TIMES DAILY NEEDED - Active hydrocodone 7.5 mg-acetaminophen 325 mg tablet TAKE 1 TABLET BY MOUTH THREE TIMES DAILY NEEDED - Active prednisone 20 mg tablet - Ac tive amoxicillin 875 mg tablet - Active hydrocodone 5 mg-acetaminophen 325 mg tablet - Active ondansetron 4 mg disintegrating tablet TAKE 1 TABLET BY MOUTH EVERY 6 HOURS NEEDED FOR NAUSEA AND VOMITING - Active Procedures Procedure Date TTE W/DOPPLER, COMPLETE Advance Directives Directive Yes / No Effective Date File Name No Information Encounters Encounter Description Practice Location Reason(s) For Visit Diagnoses Date Provider Providers Copied on Encounter [facility] , [address] [place] [address], [id number] , tel:[phone] No Information Hubert Herring. [address], [place], [id number] , . tel: [phone] Referring Provider: Nima Beltrányum, [facility] [place], [address] . tel:[phone] sulting Provider: Nima Foyyyum, [address], [place], [address] . tel:[phone] [facility], [address] [place] [address], [id number] , tel: [phone] [facility] [place] No Information 5 Hubert Nima. [address] [place], [place], [id number] , . tel: [phone] Referring Provider: Bryanna Galvan, [address] [facility] [address], [place], [address]. tel:[phone] [facility], [address] [place] [address], [id number] , tel: [phone] [facility] [place] No Information 5 Hubert Nima. [address] [place], [place] [address], [place], [id number] , . tel: [phone] [facility], [address] [place] [address], [id number] , tel: [phone] [facility] [place] PalpitationsEncounter for screening for cardiovascular disordersEncounter for other preprocedural examinationObesityOth er forms of dyspnea 5 Hubert [facility]. [address] [place], [place], [id number] , . tel: [phone] Family History Family Member Type Diagnosis Age At Onset No Information Payers Payer name Insurance type Covered constitution party ID Hortensia michelle(s) [facility] [id number] Social History Type Description Quantity Date Captured Comments Sex Female Smoking Status No Information Chief Complaint And Reason For Visit No Information Reason For Referral Reason For Referral No Information Plan Of Treatment Date Type Action Status Appointment Renetta Bey BOOKED History Of Present Illness Encounter Date Complaint History Of Prese nt Illness No Information Functional Status Date Functional Assessmen t No Information Instructions Date Instruction Additional Infor mation No Information Assessments Type Assessment Date No Information Patient Care Teams Name Effective Dates (start - stop) Status Members No Information
--- OUTSIDE RECORDS SUMMARY | 2025-05-10 22:47 | XMS_ITS | Clinical Summary ---
Author Organization [facility] Address [address] [place] [address] Care Team Providers Care Home Appliance Tech Name Role Phone Bryanna Galvan MD Primary Care Provider [phone] Allergies Active Allergy Reactions Criticality Noted Date Comments Ciprofloxacin Other (See comments) Low 03/08/2022 Sulfamethoxazole-Trimethoprim Itching,Rash High 05/10 Medications ferrous sulfate 325 mg (65 mg of elemental iron) tablet Take 1 tablet (325 mg total) by mouth 2 (two) times a day before breakfast and dinner 1 Active ibuprofen (ADVIL,MOTRIN) 600 mg tablet Take 1 tablet (600 mg total) by mouth 2 (two) times a day as needed 5 Active Active Problems Problem Noted Date Diagnosed Date Prior scan suggested placent al abnormality in second trimester, antepartum 03/26/2025 Suspected problem with placenta not found 2024 Calculus of gallbladder with chronic cholecystitis without obstruction 01/18/2024 Cyst of ovary 06/27/2022 Cervical polyp 05/18/2021 Overview (05/18/2021): Added automatically from request for surgery [id number] Palpitations 05/17/2021 Iron deficiency anemia 01/18/2021 Other dietary vitamin B12 deficiency anemia 01/07 Abnormal bleeding in menstrual cycle 05/23/2019 Hematuria 05/23/2019 History of molar 05/23/2019 Iron deficiency anemia due to chronic blood loss 05/23/2019 cardiomyopathy 05/23/2019 Thrombocytosis 05/23/2019 Menorrhagia 04/29/2019 Hypovitaminosis D 10/19/2017 Iron deficiency 09/08/2017 Asthma 08/24/2017 Dyspnea on exertion 08/24/2017 Obesity 08/24/2017 Preoperative evaluation to r ule out surgical contraindication 08/24/2017 Snoring 08/24/2017 Abnormal uterine bleeding 08/29/2016 Anxiety 08/08/2016 Major depressive disorder, single episode, unspe cified 07/11/2016 Pain of female symphysis pubis 02/11/2016 Abnormal ultrasound 2016 Irregular menses 09/23/2015 Pelvic pain in female 09/23/2015 Vaginal discharge 09/23/2015 Generalized anxiety disorder 08/26/2015 Bilateral hydronephrosis 03/17/2010 Encounters Date Type Department Care Team Description 04/02/2025 10:10 AM CDT Ancillary Procedure [facility] Imaging at [address] [id number] Wrist pain, right 04/02/2025 10:05 AM CDT Ancillary Procedure [facility] Imaging at [address] [address] Wrist pain, right 04/02/2025 9:45 AM CDT Office Visit [facility] at [address] [address] Magnolia Prater PA Wrist pain, right (Primary Dx) 04/02/2025 Results Follow-Up [facility] at [address] [address] Magnolia Prater PA XR Forearm Right 2 Vw, XR Wrist Right 3+ Vw 03/26/2025 3:30 PM CDT Ancillary Procedure [facility] Imaging at [address] [address] Right knee injury, initial encounter 03/26/2025 3:15 PM CDT Office Visit [facility] at [address] [address] Jacobs, Kristen B., PRECISION DEVICES INSPECTOR/TESTER Right knee injury, initial encounter (Primary Dx) 03/26/2025 Results Follow-Up [facility] at [address] [address] Kristen Jacobs NP XR Knee Right 3 Views from Last 3 Months Surgical History Surgery Date Site/Laterality Comments DILATION AND CURETTAGE, DIAGNOSTIC / THERAPEUTIC 10/09/2012 - 10/08/2013 R/T MOLAR SECTION X 1 VAGINAL DELIVERY X 2 Medical History Medical History Date Comments Heart murmur child Allergic rhinitis GERD (gastroesophageal reflux disease) h/o not on any medication now Anemia STACEY SEE MEDICATI ON Scoliosis Miscarriage Palpitations H/O OF SEEING CA RDIOLOGIST SAW 05/2021 AND 06/2021 DOING HOLTER AND ECHO STATES PATIENT DR SOW Gestational diabetes 2013 5, not currently G5,P3 MISCARRIAGE X 1, MOLAR X 1 Last menstrual period (LMP) > 10 days ago 05/10/2021 Peripartum cardiomyopathy 2016 IN HOS PTIAL AFTER CHILDBIRTH STATES PATIENT Wears glasses Anxiety PATEINT STATES B LOOD PRESSURE RUNS HIGH OCCURS Obesity Family History Medical History Relation Name Comments Breast cancer Neg Hx Ovarian cancer Neg Hx Social History Tobacco Use Types Packs/Day Years Used Date Smoking Tobacco: Former Cigarettes 0.1 1 0 10/09/2017 - 10/09/2018 Smokeless Tobacco: Never Comments No Sex and Gender Information Value Date Recorded Sex Assigned at Not on file Legal Sex Female 1:40 AM STUDENT DEVELOPMENT SPECIALIST Gender Identity Female 09/01/2021 4:56 AM STUDENT DEVELOPMENT SPECIALIST Sexual Orientation Not on file Obstetrics History Para Term AB IAB SAB Ectopic Multiple Livin g Live Births 5 3 3 2 Date Outcome GA Total Labor Labor/2nd/3rd Weight Sex Type Anes PTL Deanna A1 A5 Name Clin Term Term Term AB AB Last Filed Vital Signs Vital Sign Reading Time Taken Comments Blood Pressure 146/88 04/02/2025 9:52 AM CDT Pulse 90 04/02/2025 9:52 AM CDT Temperature 36.8 C (98.3 F) 04/02/2025 9:52 AM CDT Respiratory Rate 20 04/02/2025 9:52 AM CDT Oxygen Saturation 97% 04/02/2025 9:52 AM CDT Inhaled Oxygen Concentration - - Weight 127 kg (280 lb) 04/02/2025 9:52 AM CDT Height 165.1 cm (5' 5) 03/26/2025 3:12 PM CDT Body Mass Index 46.59 03/26/2025 3:12 PM CDT Plan of Treatment Health Maintenance Due Date Last Done Comments Depression Screening 1993 Hepatitis C Screening 1993 HPV Vaccines (2 - 2-dose series) 10/03/2007 04/03/20 Pneumococcal vaccine <65 (1 of 2 - PCV) 01/22/2012 Cervical Cancer Screening 09/23/2016 09/23/2015 DTaP/Tdap/Td Vaccine (7 - Td or Tdap) 04/03/2017 04/03/2007, 03/18/1998, 04/25/1994, Additional history exists Regular Well Visit/Exam 18-05/04/2022 05/04/2021 Influenza Vaccine (#1) 2025 08/26/2010 Hepatitis B Screening Completed 07/26/1994 , 1993, 1993 Varicella Vaccines Completed 04/03/2007, 05/26/2003 Procedures Procedure Name Priority Date/Time Associated Diagnosis Comments XR RADIUS ULNA RIGHT 2 VIEWS Schedule KRISTI, Read KRISTI (Appt Today, Awaiting Results) 04/02/2025 10:07 AM CDT Wrist pain, right XR WRIST RIGHT 3 OR MORE VIEWS Schedule KRISTI, Read KRISTI (Appt Today, Awaiting Results) 04/02/2025 10:06 AM CDT Wrist pain, right XR KNEE RIGHT 3 VIEWS Schedule KRISTI, Read KRISTI (Appt Today, Awaiting Results) 03/26/2025 3:33 PM CDT Right knee injury, initial encounter [facility]AG[facility] PAP REFLEX HPV MRNA E6/E7 Routine 09/23/2015 3:11 PM STUDENT DEVELOPMENT SPECIALIST from Last 3 Months or Most Recently Relevant to Health Maintenance Results * XR Forearm Right 2 Vw (04/02/2025 10:07 AM CDT) Anatomical Region Laterality Modality Upper Extremities, Forearm Right Digit al Radiography 04/02/2025 10:3 1 AM CDT Narrative 04/02/2025 10:32 AM CDT EXAM DESCRIPTION: 1. XR WRIST RIGHT 3 OR MORE VIEWS 2. XR RADIUS ULNA RIGHT 2 VIEWS REASON FOR STUDY: wrist pain Pt complains of right arm and wrist pain after falling upstairs x 2 days ago. No prior fx or surgery FINDINGS: Three views right wrist and two views right forearm submitted without comparison. Right wrist: No acute fracture. Ulnar positive variance is present. The joint spaces are normal. No dorsal wrist soft tissue swelling. Right forearm: No acute fracture identified. Alignment is normal. The elbow joint spaces are normal. No elbow effusion identified. IMPRESSION: 1. No acute fracture. If persistent clinical concern for an occult fracture, conservative management with repeat radiographs in 2-3 weeks may be considered. THIS IS AN ELECTRONICALLY VERIFIED FINAL REPORT 04/02/2025 10:32 AM - Electronically signed by Ricardo Cleary M.D. T: Report ID: [id number] Reading Location: [id number] Procedure Note Ricardo Cleary MD - 04/02/2025 EXAM DESCRIPTION: 1. XR WRIST RIGHT 3 OR MORE VIEWS 2. XR RADIUS ULNA RIGHT 2 VIEWS REASON FOR STUDY: wrist pain Pt complains of right arm and wrist pain after falling upstairs x 2 daysago. No prior fx or surgery FINDINGS: Three views right wrist and two views right forearm submitted without comparison. Right wrist: No acute fracture. Ulnar positive variance is present. The joint spacesare normal. No dorsal wrist soft tissue swelling. Right forearm: No acute fracture identified. Alignment is normal. The elbow jointspaces are normal. No elbow effusion identified. IMPRESSION: 1. No acute fracture. If persistent clinical concern for an occultfracture, conservative management with repeat radiographs in 2-3 weeks may beconsidered. THIS IS AN ELECTRONICALLY VERIFIED FINAL REPORT 04/02/2025 10:32 AM - Electronically signed by Ricardo Cleary M.D. T: Report ID: [id number] Reading Location: [id number] us [facility] Roberta Tiller PA IMG XR PROCEDURES Final Result * XR Wrist Right 3+ Vw (04/02/2025 10:06 AM CDT) Anatomical Region Laterality Modality Upper Extremities, Wrist Right Digital Radiography 04/02/2025 10:3 1 AM CDT Narrative 04/02/2025 10:32 AM CDT EXAM DESCRIPTION: 1. XR WRIST RIGHT 3 OR MORE VIEWS 2. XR RADIUS ULNA RIGHT 2 VIEWS REASON FOR STUDY: wrist pain Pt complains of right arm and wrist pain after falling upstairs x 2 days ago. No prior fx or surgery FINDINGS: Three views right wrist and two views right forearm submitted without comparison. Right wrist: No acute fracture. Ulnar positive variance is present. The joint spaces are normal. No dorsal wrist soft tissue swelling. Right forearm: No acute fracture identified. Alignment is normal. The elbow joint spaces are normal. No elbow effusion identified. IMPRESSION: 1. No acute fracture. If persistent clinical concern for an occult fracture, conservative management with repeat radiographs in 2-3 weeks may be considered. THIS IS AN ELECTRONICALLY VERIFIED FINAL REPORT 04/02/2025 10:32 AM - Electronically signed by Ricardo Cleary M.D. T: Report ID: [id number] Reading Location: [id number] Procedure Note Ricardo Cleary MD - 04/02/2025 EXAM DESCRIPTION: 1. XR WRIST RIGHT 3 OR MORE VIEWS 2. XR RADIUS ULNA RIGHT 2 VIEWS REASON FOR STUDY: wrist pain Pt complains of right arm and wrist pain after falling upstairs x 2 daysago. No prior fx or surgery FINDINGS: Three views right wrist and two views right forearm submitted without comparison. Right wrist: No acute fracture. Ulnar positive variance is present. The joint spacesare normal. No dorsal wrist soft tissue swelling. Right forearm: No acute fracture identified. Alignment is normal. The elbow jointspaces are normal. No elbow effusion identified. IMPRESSION: 1. No acute fracture. If persistent clinical concern for an occultfracture, conservative management with repeat radiographs in 2-3 weeks may beconsidered. THIS IS AN ELECTRONICALLY VERIFIED FINAL REPORT 04/02/2025 10:32 AM - Electronically signed by Ricardo Cleary M.D. T: Report ID: [id number] Reading Location: [id number] [facility] QUEVEDO IMG XR PROCEDURES Final Result * XR Knee Right 3 Views (03/26/2025 3:33 PM CDT) Anatomical Region Laterality Modality Lower Extremities, Knee Right Digital Radiography 03/26/2025 4:54 PM CDT Narrative 03/26/2025 4:56 PM CDT EXAM DESCRIPTION: 1. XR KNEE RIGHT 3 VIEWS REASON FOR STUDY: Knee pain, initial exam, fall 10 days ago, impacted lateral portion, swelling and bruising medially, pain to both lateral and medial right knee Pt complains of knee pain after a fall on 03/16. No prior fx or surgery FINDINGS: Three views submitted with comparison 01/24/2017. No acute fracture. Alignment is normal. Mild lateral predominant tricompartmental right knee osteoarthritis. Small knee effusion. IMPRESSION: 1. Mild lateral predominant tricompartmental right knee osteoarthritis with a small effusion. THIS IS AN ELECTRONICALLY VERIFIED FINAL REPORT 03/26/2025 4:56 PM - Electronically signed by Ricardo Cleary M.D. T: Report ID: [id number] Reading Location: [id number] Procedure Note Ricardo Cleary MD - 03/26/2025 EXAM DESCRIPTION: 1. XR KNEE RIGHT 3 VIEWS REASON FOR STUDY: Knee pain, initial exam, fall 10 days ago, impactedlateral portion, swelling and bruising medially, pain to both lateral and medialright knee Pt complains of knee pain after a fall on 03/16. No prior fx or surgery FINDINGS: Three views submitted with comparison 01/24/2017. No acute fracture. Alignment is normal. Mild lateral predominant tricompartmental right knee osteoarthritis. Small knee effusion. IMPRESSION: 1. Mild lateral predominant tricompartmental right knee osteoarthritiswith a small effusion. THIS IS AN ELECTRONICALLY VERIFIED FINAL REPORT 03/26/2025 4:56 PM - Electronically signed by Ricardo Cleary M.D. T: Report ID: [id number] Reading Location: [id number] us Kristen ParkerElizabeth Jacobs PRECISION DEVICES INSPECTOR/TESTER IMG XR PROCEDURES Final Re sult * ThinPrep Imaging Pap Reflex HPV mRNA E6/E7 (09/23/2015 3:11 PM STUDENT DEVELOPMENT SPECIALIST) CLINICAL INFORMATION [facility] HISTORICAL RESULTS Comment:Information not prov ided LMP: [facility] Comment:Information not prov ided PREV. PAP: [facility] HISTORICAL RESULTS Comment:Information not prov ided PREV. BX: [facility] HISTORICAL RESULTS Comment:Information not prov ided SOURCE: [facility]ISTORICAL RESULTS Comment:Cervix, Endocervix STATEMENT OF ADEQUACY: [facility] HISTORICAL RESULTS Comment: Satisfactory for evaluation. Endocervical/transformation zone component present. Age and/or menstrual status not provided INTERPRETATION/RESU LT: [facility] HISTORICAL RESULTS Comment:Negative for intraep ithelial lesion or malignancy. COMMENT: [facility] HISTORICAL RESULTS Comment: This Pap test has been evaluated with computer assisted technology. COILER: [facility] HISTORICAL RESULTS Comment: MEF, CT(ASCP) CT screening location: [place] [address] [place] [id number] 09/23/2015 3:11 PM STUDENT DEVELOPMENT SPECIALIST 09/29/2015 5:50 PM STUDENT DEVELOPMENT SPECIALIST Narrative [facility] HISTORICAL RESULTS - 09/29/2015 3:18 PM STUDENT DEVELOPMENT SPECIALIST 0 PERFORMING LAB: [place] [place] [address] [place] [address] Prasad Ramos MD us Saeed Hart MD LAB PATHOLOGY ORDERABLES F inal Result [facility] HISTORICAL RESULTS from Last 3 Months or Most Recently Relevant to Health Maintenance [place] [place] [address] [facility] Care Teams Home Appliance Tech Relationship Specialty Start Date End Date Bryanna Galvan MD [address] [place] [address] PCP - General Internal Medicine 12/24/23
--- OUTSIDE RECORDS SUMMARY | 2025-05-10 22:47 | XMS_ITS | Encounter Summary ---
Author Organization [facility] Address Formerly [facility] [place] [address] Care Team Providers Care Mobile Plant Operators Name Role Phone Bryanna Galvan MD Primary Care Provider [phone] Encounter Details Date Type Department Care Team (Latest Contact Info) Description 01/13/2024 Animalvitaet Message Enc [facility] Multispecialty Care - [place] [address] [address] [place], [place] [id number] Bryanna Galavn MD [address] [place] [address] [phone] question on antibiotic Social History Tobacco Use Types Packs/Day Years [...] Total Score: 2 10/04/20 23 11:23 AM PAPER NOVELTY MAKER documented as of this encounter Care Teams Mobile Plant Operators Relationship Specialty Start Date End Date Bryanna Galvan MD [address] [place] [id number] PCP - General INTERNAL MEDICINE 10/04/23 documented as of this encounter
--- OUTSIDE RECORDS SUMMARY | 2025-05-10 22:47 | XMS_ITS | Encounter Summary ---
Author Organization [facility] Care Team Providers Care Phone Engineer Name Role Phone Miscellaneous, Not In File Primary Care Provider Unavailable Wei Chew Primary Care Provider Unavaila Sanjana Silver NP Primary Care Provider [phone] Bryanna Galvan MD Primary Care Provider [phone] Encounter Details Date Type Department Care Team (Latest Contact Info) Description 06/01/2016 Orders Only [facility] CLINCONV Provider, MD Ino [address] [place] [address] Social History Tobacco Use Types Packs/Day Years Used Date Smoking Tobacco: Never Assessed Comments Unknown Sex and Gender Information Value Date Recorded Sex Assigned at Not on file Legal Sex Female 1:40 AM BANK BOSS Gender Identity Female 09/01/2021 4:56 AM BANK BOSS Sexual Orientation Not on file documented as of this encounter Plan of Treatment Not on file documented as of this encounter Procedures Procedure Name Priority Date/Time Associated Diagnosis Comments SCAN - PATHOLOGY 06/01/2016 12:0 0 AM CDT documented in this encounter Results * SCAN - PATHOLOGY (06/01/2016 12:00 AM CDT) Narrative 06/01/2016 12:00 AM CDT Ordered by an unspecified provider. Historical Provider Final Res ult documented in this encounter Visit Diagnoses Not on filedocumented in this encounter Care Teams Phone Engineer Relationship Specialty Start Date End Date Miscellaneous, Not In File PCP - General 01/24/17 Wei Chew PCP - General 01/26/18 12/26/18 Sanjana Clemente NP PCP - General Nurse Practitioner 05/04/21 12/23/23 Bryanna Galvan MD [address] [place] [address] PCP - General Internal Medicine 12/24/23 documented as of this encounter
--- OUTSIDE RECORDS SUMMARY | 2025-05-10 22:47 | XMS_ITS | Encounter Summary ---
Author Organization [facility] Facility Care Team Providers Care Relief Charge Nurse Name Role Phone Miscellaneous, Not In File Primary Care Provider Unavailable Wei Chew Primary Care Provider Unavaila Sanjana Silver NP Primary Care Provider [phone] Bryanna Galvan MD Primary Care Provider [phone] Encounter Details Date Type Department Care Team (Latest Contact Info) Description 11/02/2015 Orders Only [facility] CLINCONV Provider, MD Ino [address] [place] [address] Social History Tobacco Use Types Packs/Day Years Used Date Smoking Tobacco: Never Assessed Comments Unknown Sex and Gender Information Value Date Recorded Sex Assigned at Not on file Legal Sex Female 1:40 AM DEV MANAGER Gender Identity Female 09/01/2021 4:56 AM DEV MANAGER Sexual Orientation Not on file documented as of this encounter Plan of Treatment Not on file documented as of this encounter Procedures Procedure Name Priority Date/Time Associated Diagnosis Comments SCAN - LABS 11/11/2015 12:00 AM DEV MANAGER documented in this encounter Results * SCAN - LABS (11/11/2015 12:00 AM DEV MANAGER) Narrative 11/11/2015 12:00 AM DEV MANAGER Ordered by an unspecified provider. Historical Provider Final Res ult documented in this encounter Visit Diagnoses Not on filedocumented in this encounter Care Teams Relief Charge Nurse Relationship Specialty Start Date End Date Miscellaneous, Not In File PCP - General 01/24/17 Wei Chew PCP - General 01/26/18 12/26/18 Sanjana Clemente NP PCP - General Nurse Practitioner 05/04/21 12/23/23 Bryanna Galvan MD [address] [place] [address] PCP - General Internal Medicine 12/24/23 documented as of this encounter
--- OUTSIDE RECORDS SUMMARY | 2025-05-10 22:47 | XMS_ITS | Clinical Summary ---
Author Organization [facility] Address [address] [place] [address] Care Team Providers Care Outbound Telemarketer Name Role Phone Bryanna Galvan MD Primary Care Provider [phone] Allergies Active Allergy Reactions Criticality Noted Date Comments Ciprofloxacin Other (see comment) 03/08/2022 Sulfamethoxazole-Trimethoprim Itching,Rash High 05/10 Medications Iron-Vitamin C (VITRON-C) 65-125 MG Tab Take by mouth. Activ e albuterol sulfate HFA 108 (90 Base) MCG/ACT inhalerIndication s:Mild intermittent asthma without complication ([facility]) albuterol sulfate HFA 90 mcg/actuation aerosol inhaler INHALE 2 PUFFS BY MOUTH EVERY 4 HOURS NEEDED 18 g 6 3 Active HYDROcodone-aceta minophen (NORCO) 7.5-325 MG tablet Take 1 tablet by mouth every 8 (eight) hours as needed for Pain. Active ferrous sulfate, 65 mg elemental, 325 (65 FE) MG tablet ferrous sulfate 325 mg (65 mg iron) tablet Active Active Problems Problem Noted Date Diagnosed Date Calculus of gallbladder with chronic cholecystitis without obstruction 01/18/2024 Resolved Problems Problem Noted Date Diagnosed Date Resolved Date Arnold-Chiari malformation, type I ([facility] HHS/HCC) 10/06/2023 10/19/2023 Mild episode of recurrent ma sharmila depressive disorder 10/06/2023 10/19/2023 Encounters Date Type Department Care Team Description 03/06/2025 Scan [facility] SRVCS Scanned, Doc Med Group from Last 3 Months Immunizations Immunization Administration Dates Next Due Dtp (Generic) 03/18/1998 Dtp/Hib (Tetramune) 04/25/1994,1993,1992,1993 HPV4 (Gardasil) 04/03/2007 Hepatitis A (Generic) 04/03/2007,05/26/2003 Hepatitis B Pediatric 07/26/1994,1993,01/07 Influenza (Generic) 08/26/2010 MMR (MMRII) 03/18/1998,07/19/1994 Meningococcal (Generic) 04/03/2007 Polio IPV (Ipol) 03/18/1998 Polio Opv (Generic) 04/25/1994,1993,1992,1993 Tdap (Generic) 04/03/2007 Varicella (Varivax) 04/03/2007,05/26/2003 Social History Tobacco Use Types Packs/Day Years Used Date Smoking Tobacco: Never Passive Smoke Exposure: Never Smokeless Tobacco: Never Tobacco Cessation:Counseling Given: Not Answered Comments:Counseled by Dr. Galvan. Alcohol Use Standard Drinks/Week Comments Not Currently [...] Sign Reading Time Taken Comments Blood Pressure 133/74 01/03/2024 1:00 PM CDT Pulse 72 01/03/2024 1:00 PM CDT Temperature 36.4 C (97.6 F) 01/03/2024 1:00 PM CDT Respiratory Rate 16 01/03/2024 1:00 PM CDT Oxygen Saturation 99% 01/03/2024 1:00 PM CDT Inhaled Oxygen Concentration - - Weight 128.1 kg (282 lb 6.4 oz) 01/03/2024 1:00 PM CDT Height 165.1 cm (5' 5) 12/28/2023 3:18 PM CDT Body Mass Index 46.99 12/28/2023 3:18 PM CDT Plan of Treatment Health Maintenance Due Date Last Done Comments HPV Vaccines (2 - 2-dose series) 10/03/2007 04/03/2007 DTaP, Tdap and Td Vaccines (3 - Td or Tdap) 04/03/2017 04/03/2007, 03/18/1998, 04/25/1994, Additional history exists Cervical Cancer Screening Pap with HPV Testing (Age 30 to 64) Every 5 Years 2023 COVID-19 Vaccine ( season) 2024 Annual Physical 10/04/2024 10/04/2023 PHQ-2 (Physician [place]) 10/09/2024 12/28/2023 Cervical Cancer Screening Pap Smear (Age 30 to 64) Every 3 Years 08/10/2026 08/10/2023 Cervical Cancer Screening with HPV 08/10/2026 Hepatitis B Vaccines Completed 07/26/1994, 1993, 1993 Meningococcal Vaccine Aged Out 04/03/2007 No miguel alison eligible based on patient's age to complete this topic Hepatitis C Completed 10/04/2023 Meningococcal B Vaccine Aged Out No l onger eligible based on patient's age to complete this topic Pneumococcal Vaccine: Pediatrics (0 to 5 Years) and At-Risk Patients (6 to 49 Years) Aged Out No longer eligible based on patient's age to complete this topic RSV Immunizations Under 20 Months Aged Out No longer eligible based on patient's age to complete this topic Procedures Procedure Name Priority Date/Time Associated Diagnosis Comments HEPATITIS C ANTIBODY Routine 10/04/2023 11:21 AM GRAIN BUYER Annual physical exam Establishing care with new doctor, encounter for General medical exam from Last 3 Months or Most Recently Relevant to Health Maintenance Results * HEPATITIS C ANTIBODY (10/04/2023 11:21 AM GRAIN BUYER) HEPATITIS C AB NON-REACTI VE NON-REACT AGNIESZKA 10/05/2023 10:58 PM GRAIN BUYER [facility] Comment: ANTIBODIES TO HCV NOT DETECTED. DOES NOT EXCLUDE THE POSSIBILITY OF EXPOSURE TO HCV. 10/04/2023 11:2 1 AM GRAIN BUYER Bryanna Galvan MD LABORATORY Final Result [facility] [address] [place] [address], [id number] from Last 3 Months or Most Recently Relevant to Health Maintenance Insurance [facility] Care Teams Outbound Telemarketer Relationship Specialty Start Date End Date Bryanna Galvan MD [address] [address] PCP - General INTERNAL MEDICINE 10/04/23
--- OUTSIDE RECORDS SUMMARY | 2025-05-10 22:47 | XMS_ITS | Encounter Summary ---
Author Organization [facility] Address [address] [place] [address] Care Team Providers Care Calibration Tester Name Role Phone Brant Frances MD Primary Care Provider [phone] Brant Frances MD Primary Care Provider [phone] Sanjana Clemente APRNRAO Primary Care Provider [phone] Reason for Visit * Reason Onset Date Comments Follow-up 07/31/2017 Encounter Details Date Type Department Care Team (Late st Contact Info) Description 07/31/2017 Telephone [facility] Weight Management Services [address] [place], [place] [address] [place] [address] [address] Follow-up Social History Tobacco Use Types Packs/Day Years Used Date Smoking Tobacco: Former Cigarettes 0.5 1 2 014 - 2014 Smokeless Tobacco: Never Alcohol Use Standard Drinks/Week Comments No 0 (1 standard drink = 0.6 oz pur e alcohol) occational Comments No Sex and Gender Information Value Date Recorded Sex Assigned at Not on file Legal Sex Female 8:54 AM TIE BINDER Gender Identity Not on file Sexual Orientation Not on file documented as of this encounter Miscellaneous Notes * Telephone Encounter - Angeles Ribeiro LPN - 07/31/2017 3:09 PM CDT Called PCP office to request wt visit forms. Spoke with pt who reports having two visits completed and has copies she is to bring to apt. Reminded to have labs,cxr, ekg done before mon. Psych clearance on chart, [facility] life insurance sales agent notified clearance is from a MARKETING RECRUITER that is not usually accepted. Pt transfer to front office to talk to roslyn to schedule a civil project engineer visit, pt has not completed any at this time. Angeles Ribeiro LPN 07/31/2017 3:11 PM documented in this encounter Plan of Treatment Not on file documented as of this encounter Visit Diagnoses Not on filedocumented in this encounter Care Teams Calibration Tester Relationship Specialty Start Date End Date Brant Frances MD [address] [facility] [place] [phone] PCP - General Internal Medicine 05/31/17 04/03/19 Brant Frances MD [address] [facility] [address] [place] [address] PCP - General Internal Medicine 04/04/19 01/30/23 Sanjana Clemente APRN-RAO [address] [facility] [address] [place] [phone] PCP - General 01/31/23 documented as of this encounter
--- OUTSIDE RECORDS SUMMARY | 2025-05-10 22:47 | XMS_ITS | Encounter Summary ---
Author Organization [facility] Address [facility] [place] [address] Care Team Providers Care Fuel Cell Assembler Name Role Phone Bryanna Galvan MD Primary Care Provider [phone] Encounter Details Date Type Department Care Team (Latest Contact Info) Description 10/18/2023 Bolt.iot Message Enc [facility] Medical Group Multispecialty Care - [place] [address] [address] [place], [place] [phone] Bryanna Galvan MD [address] [address] Abdomen ultrasound Social History Tobacco Use Types Packs/Day [...] Total Score: 2 10/04/20 23 11:23 AM STOCK BROKER SUPERVISOR documented as of this encounter Care Teams Fuel Cell Assembler Relationship Specialty Start Date End Date Bryanna Galvan MD [address] [facility] [address] [place], [place] [phone] PCP - General INTERNAL MEDICINE 10/04/23 documented as of this encounter
--- OUTSIDE RECORDS SUMMARY | 2025-05-10 22:47 | XMS_ITS | Encounter Summary ---
Author Organization [facility] Address [facility] [place] [address] Care Team Providers Care Space And Missile Operations Spacelift Name Role Phone Bryanna Galvan MD Primary Care Provider [phone] Encounter Details Date Type Department Care Team (Late st Contact Info) Description 12/14/2023 ChangePanda Message Enc [facility] Medical Group Multispecialty Care - [place] [address] [address] [place] [address] [facility], [facility] Provider Xray Result Social History Tobacco Use Types Packs/Day Years [...] Total Score: 2 10/04/20 23 11:23 AM OFF TRACK BETTING MANAGER documented as of this encounter Care Teams Space And Missile Operations Spacelift Relationship Specialty Start Date End Date Bryanna Galvan MD [address] [facility] [address] [place] [address] PCP - General INTERNAL MEDICINE 10/04/23 documented as of this encounter
--- OUTSIDE RECORDS SUMMARY | 2025-05-10 22:47 | XMS_ITS | Encounter Summary ---
Author Organization [facility] Care Team Providers Care Senior Health Physics Technician Name Role Phone Miscellaneous, Not In File Primary Care Provider Unavailable Wei Chew Primary Care Provider Unavaila Sanjana Silver NP Primary Care Provider [phone] Bryanna Galvan MD Primary Care Provider [phone] Encounter Details Date Type Department Care Team (Latest Contact Info) Description 04/02/2016 Orders Only [facility] CLINCONV Provider, MD Ino [address] [place] [address] Social History Tobacco Use Types Packs/Day Years Used Date Smoking Tobacco: Never Assessed Comments Unknown Sex and Gender Information Value Date Recorded Sex Assigned at Not on file Legal Sex Female 1:40 AM CYTOLOGY LABORATORY MANAGER Gender Identity Female 09/01/2021 4:56 AM CYTOLOGY LABORATORY MANAGER Sexual Orientation Not on file documented as of this encounter Plan of Treatment Not on file documented as of this encounter Procedures Procedure Name Priority Date/Time Associated Diagnosis Comments SCAN - LABS 04/02/2016 12:00 AM CDT documented in this encounter Results * SCAN - LABS (04/02/2016 12:00 AM CDT) Narrative 04/02/2016 12:00 AM CDT Ordered by an unspecified provider. Historical Provider Final Res ult documented in this encounter Visit Diagnoses Not on filedocumented in this encounter Care Teams Senior Health Physics Technician Relationship Specialty Start Date End Date Miscellaneous, Not In File PCP - General 01/24/17 Wei Chew PCP - General 01/26/18 12/26/18 Sanjana Clemente NP PCP - General Nurse Practitioner 05/04/21 12/23/23 Bryanna Galvan MD [address] [place] [address] PCP - General Internal Medicine 12/24/23 documented as of this encounter
--- OUTSIDE RECORDS SUMMARY | 2025-05-10 22:47 | XMS_ITS | Clinical Summary ---
Author Organization [facility] Address [address] [place] [address] Phone Care Team Providers Care Candy Bar Attendant Name Role Phone Provider, Abstract Primary Care Provider Unavail able Allergies Active Allergy Reactions Criticality Noted Date Comments Sulfamethoxazole-Trimethoprim Itching,Rash Medium 05/10 Medications albuterol HFA 90 mcg inhaler INL 2 PFS PO Q 4 H 03/24/2019 Active norethindrone, Contraceptive, 0.35 mg Tablet 09/13/2021 Acti ve iron,carbonyl-vi tamin C (Vitron-C) 65 mg iron- 125 mg Tablet, Delayed Release (E.C.) Take by mouth. Active CYANOCOBALAMIN, VITAMIN B-12, ORAL Take by mouth. Active Active Problems Problem Noted Date Diagnosed Date Iron deficiency anemia 01/18/2021 Other dietary vitamin B12 deficiency anemia 01/07 Social History Tobacco Use Types Packs/Day Years Used Date Smoking Tobacco: Never Assessed Comments Unknown Sex and Gender Information Value Date Recorded Sex Assigned at Not on file Legal Sex Female 10:27 AM CDT Gender Identity Not on file Sexual Orientation Not on file Last Filed Vital Signs Vital Sign Reading Time Taken Comments Blood Pressure 144/78 07/15/2022 12:39 PM CDT Pulse 64 07/15/2022 12:39 PM CDT Temperature 36.4 C (97.5 F) 07/15/2022 12:39 PM CDT Respiratory Rate 20 07/15/2022 12:39 PM CDT Oxygen Saturation 100% 07/15/2022 12:39 PM CDT Inhaled Oxygen Concentration - - Weight 127 kg (279 lb 14.4 oz) 07/15/2022 12:39 PM CDT Height 165.1 cm (5' 5) 11/02/2021 3:33 PM MANAGER OF SECURITY Body Mass Index 46.58 11/02/2021 3:33 PM MANAGER OF SECURITY Plan of Treatment Health Maintenance Due Date Last Done Comments HPV VACCINES (1 - 3-dose series) 01/22/2008 DTAP/TDAP/TD VACCINES (1 - Tdap) 01/22/2012 HEPATITIS B VACCINES (1 of 3 - 19+ 3-dose series) 01/07 HPV/Cotest (21-29) 2014 HPV/Cotest (30-65) 2023 CERVICAL CANCER SCREENING 05/04/2024 PAP SMEAR 05/04/2024 05/04/2021 INFLUENZA VACCINE (#1) 2025 Insurance [facility] [address] MED[address]ID Care Teams Candy Bar Attendant Relationship Specialty Start Date End Date Provider, Abstract NO ADDRESS ON FILE PCP - General 01/18/21
--- OUTSIDE RECORDS SUMMARY | 2025-05-10 22:47 | XMS_ITS | Referral Summary ---
Author Organization [facility] Address [address] [place] [address] Care Team Providers Care Slicing Machine Feeder Name Role Phone Bryanna Galvan MD Primary Care Provider [phone] Encounters Date Type Department Care Team Description 04/02/2025 Results Follow-Up [facility] Medical Group Convenient Care at [address] [address] Magnolia Prater PA XR Forearm Right 2 Vw, XR Wrist Right 3+ Vw 04/02/2025 10:10 AM CDT Ancillary Procedure [facility] Medical Group Imaging at [address] [address] Wrist pain, right 04/02/2025 10:05 AM CDT Ancillary Procedure [facility] Medical Group Imaging at [address] [address] Wrist pain, right 04/02/2025 9:45 AM CDT Office Visit [facility] Medical Group Convenient Care at [address] [address] Magnolia Prater PA Wrist pain, right (Primary Dx) 03/26/2025 Results Follow-Up [facility] Medical Group Convenient Care at [address] [address] Kristen Jacobs NP XR Knee Right 3 Views 03/26/2025 3:30 PM CDT Ancillary Procedure [facility] Medical Group Imaging at [address] [phone] Right knee injury, initial encounter 03/26/2025 3:15 PM CDT Office Visit [facility] Medical Group Convenient Care at [address] [phone] Kristen Jacobs, LICENSED CLUB MANAGER Right knee injury, initial encounter (Primary Dx) from Last 3 Months Allergies Active Allergy Reactions Criticality Noted Date Comments Ciprofloxacin Other (See comments) Low 03/08/2022 Sulfamethoxazole-Trimethoprim Itching,Rash High 05/10 Medications ferrous sulfate 325 mg (65 mg of elemental iron) tablet Take 1 tablet (325 mg total) by mouth 2 (two) times a day before breakfast and dinner Active ibuprofen (ADVIL,MOTRIN) 600 mg tablet Take [...] (05/18/2021): Added automatically from request for surgery [id number] Palpitations 05/17/2021 Iron deficiency anemia 01/18/2021 Other dietary vitamin B12 deficiency anemia 01/07 Abnormal bleeding in menstrual cycle 05/23/2019 Hematuria 05/23/2019 History of molar 05/23/2019 Iron deficiency anemia due to chronic blood loss 05/23/2019 cardiomyopathy 05/23/2019 Thrombocytosis 05/23/2019 Menorrhagia 04/29/2019 Hypovitaminosis D 10/19/2017 Iron deficiency 09/08/2017 Asthma 08/24/2017 Dyspnea on exertion 08/24/2017 Obesity 08/24/2017 Preoperative evaluation to debbi aguirree out surgical contraindication 08/24/2017 Snoring 08/24/2017 Abnormal uterine bleeding 08/29/2016 Anxiety 08/08/2016 Major depressive disorder, single episode, unspe cified 07/11/2016 Pain of female symphysis pubis 02/11/2016 Abnormal ultrasound 2016 Irregular menses 09/23/2015 Pelvic pain in female 09/23/2015 Vaginal discharge 09/23/2015 Generalized anxiety disorder 08/26/2015 Bilateral hydronephrosis 03/17/2010 Social History Tobacco Use Types Packs/Day Years Used Date Smoking Tobacco: Former Cigarettes 0.1 1 0 10/09/2017 - 10/09/2018 Smokeless Tobacco: Never Comments No Sex and Gender Information Value Date Recorded Sex Assigned at Not on file Legal Sex Female 1:40 AM ADMINISTRATIVE SPECIALIST Gender Identity Female 09/01/2021 4:56 AM ADMINISTRATIVE SPECIALIST Sexual Orientation Not on file Last Filed [...] 03/26/2025 3:12 PM CDT Plan of Treatment Not on file Procedures Procedure Name Priority Date/Time Associated Diagnosis [...] HPV MRNA E6/E7 Routine 09/23/2015 3:11 PM ADMINISTRATIVE SPECIALIST from Last 3 Months or Most [...] by Ricardo Cleary M.D. T: Report ID: [id number] Reading Location: [id number] Procedure Note Ricardo Cleary MD - 04/02/2025 [...] by Ricardo Cleary M.D. T: Report ID: [id number] Reading Location: [id number] [facility] Granados Sonyamira EMY IMG XR PROCEDURES Final Result * XR [...] by Ricardo Cleary M.D. T: Report ID: [id number] Reading Location: [id number] Procedure Note Ricardo Cleary MD - 04/02/2025 [...] by Ricardo Cleary M.D. T: Report ID: [id number] Reading Location: [id number] [facility] QUEVEDO IMG XR PROCEDURES Final Result [...] by Ricardo Cleary M.D. T: Report ID: [id number] Reading Location: [id number] Procedure Note Ricardo Cleary MD - 03/26/2025 [...] by Ricardo Cleary M.D. T: Report ID: [id number] Reading Location: [id number] us Kristne Jacobs LICENSED CLUB MANAGER IMG XR PROCEDURES Final Re sult * ThinPrep Imaging Pap Reflex HPV mRNA E6/E7 (09/23/2015 3:11 PM ADMINISTRATIVE SPECIALIST) CLINICAL INFORMATION [facility] HISTORICAL RESULTS Comment:Information not prov ided LMP: [facility] HISTORICAL RESULTS Comment:Information not prov ided PREV. PAP: [facility] HISTORICAL RESULTS Comment:Information not prov ided PREV. BX: [facility] HISTORICAL RESULTS Comment:Information not prov ided SOURCE: [facility] HISTORICAL RESULTS Comment:Cervix, Endocervix STATEMENT OF ADEQUACY: [facility] HISTORICAL RESULTS Comment: Satisfactory for evaluation. Endocervical/transformation zone component present. Age and/or menstrual status not provided INTERPRETATION/RESU LT: [facility] HISTORICAL RESULTS Comment:Negative for intraep ithelial lesion or malignancy. COMMENT: [facility] HISTORICAL RESULTS Comment: This Pap test has been evaluated with computer assisted technology. CONTENT STRATEGIST: [facility] HISTORICAL RESULTS Comment: MEF, CT(ASCP) CT screening location: [employer] [place] [address] Administration DWAYNE You [address] 09/23/2015 3:11 PM ADMINISTRATIVE SPECIALIST 09/29/2015 5:50 PM ADMINISTRATIVE SPECIALIST Narrative [facility] HISTORICAL RESULTS - 09/29/2015 3:18 PM ADMINISTRATIVE SPECIALIST 0 PERFORMING LAB: [facility] [place] [address] [address] [place] [phone] Prasad Ramos MD Saeed Hart MD LAB PATHOLOGY ORDERABLES F inal Result [facility] HISTORICAL RESULTS from Last 3 Months or Most Recently Relevant to Health Maintenance Insurance [facility] OTHER Address: [address] [place] [phone] [facility] COUNT INCLUDES THE [facility] Care Teams Slicing Machine Feeder Relationship Specialty Start Date End Date Bryanna Galvan MD [address] [place] [address] PCP - General Internal Medicine 12/24/23
--- OUTSIDE RECORDS SUMMARY | 2025-05-10 22:47 | XMS_ITS | Clinical Summary ---
Author Organization [facility] Address [address] [facility] [place] [address] Care Team Providers Care Timber Cutter Name Role Phone HopSanjana morales NEW Primary Care Provider [phone] Source Comments [facility],non-owned Affiliates and Associated Physician Practices is amultiple site organization consisting of ambulatory clinics and hospital sitesin [place], [place], [place] and [place]. This disclosure is being madepursuant to the Care Everywhere program and may not contain all information available regarding this patient. Last updated 18.[facility] Allergies Active Allergy Reactions Criticality Noted Date Comments Sulfamethoxazole W-Trimethoprim Rash Medium 05/10 Ciprofloxacin Other 03/08/2022 Medications * Be aware that medications may not be up to date on this document. Alwaysverify current medications with the patient. albuterol HFA (PROVENTIL; VENTOLIN; PROAIR) 108 (90 Base) MCG/ACT inhaler albuterol sulfate HFA 90 mcg/actuation aerosol inhaler INHALE 2 PUFFS BY MOUTH EVERY 4 HOURS NEEDED Active IRON HEME POLYPEPTIDE PO Take 60 mg by mouth 3 times daily before meals Active amoxicillin-cla vulanate (Augmentin) 875-125 MG tablet Take 1 (one) tablet by mouth 2 times daily 12/15/19 23 Active bisacodyl EC 5 MG tablet TAKE 2 TABLET BY MOUTH DAILY. NEEDED FOR CONSTIPATION. 02/10/20 23 Active dicyclomine (Bentyl) 20 MG tablet Take 1 (one) tablet by mouth 3 times daily 02/10/20 23 Active flunisolide (Nasalide) 25 MCG/ACT (0.025%) nasal solution USE 1 TO 2 SPRAYS IN EACH NOSTRIL TWICE DAILY 02/03/20 23 Active fluticasone propionate (Flonase) 50 MCG/ACT nasal spray fluticasone propionate 50 mcg/actuation nasal spray,suspension SHAKE LIQUID AND USE 2 SPRAYS IN EACH NOSTRIL EVERY DAY Active loratadine (Claritin) 10 MG tablet loratadine 10 mg tablet TAKE 1 TABLET BY MOUTH EVERY DAY Active LORazepam (Ativan) 0.5 MG tablet lorazepam 0.5 mg tablet TAKE 1 TABLET BY MOUTH EVERY 6 TO 8 HOURS NEEDED FOR ANXIETY Active nitrofurantoin monohyd macro crystals (Macrobid) 100 MG capsule nitrofurantoin monohydrate/macroc rystals 100 mg capsule TAKE 1 CAPSULE BY MOUTH EVERY 12 HOURS Active norethindrone (Ortho Micronor; Nor-Qd; Cheryl; Shannon; Ainsley-Be; Nanyc; Jolivette) 0.35 MG tablet Take 1 (one) tablet by mouth once daily 04/13/20 22 Active Active Problems Problem Noted Date Diagnosed Date Footprints Patient 02/15/2016 Overview (02/15/2016): Tish Andrews RN will be [facility] FP career advisor, call [phone] Bilateral hydronephrosis 03/17/2010 Prior scan suggested placent al abnormality in second trimester, antepartum Suspected problem with placenta not found Resolved Problems Problem Noted Date Diagnosed Date Resolved Date lung mass 02/11/2016 06/01/2016 Supervision of high risk pre gnancy in second trimester 02/11/2016 06/01/2016 abnormality in - Lung Mass 01/28/2016 06/10/2016 Overview (04/19/2016): Images from the original note were not included. LONGTERM PATIENT--PLEASE CALL [phone] IF TRIAGED OR ADMITTED Care Provider: Dr. Hart (OB); [facility] Care [place] consultants involved: RN-Fabrizio/Sandra; MFM-Brian Lomeli; Cardiology-Khadar; Footprints-Darryl Diagnosis: Bronchopulmonary Sequestration care needed at : Chest Xray Planned care after delivery: Follow up with pediatric surgery for appointment at 2 weeks of life Railway Head Tender: Dr. York, [place] Planned surveillance: Next LONGTERM appointment 05.05.2016 Planned delivery location: [facility] Planned GA at delivery: FT Planned mode of delivery: hx Placenta Instructions: not needed for further studies by LONGTERM Genetics note: genetic diagnostic testing was not performed. Please request Genetics consult postnatally if clinically indicated by calling the Genetics office at [phone] prior to ordering genetic studies. Automatic Fabric Cutter Concerns: 02/11/16- Patient with history of anxiety and post depression (plans to be proactive and ask for meds to start) This care plan is based on evaluation and is subject to change based on assessment. Please see Images or Cardiac under Chart Review for US/ ECHO/ MRI reports. Family History Medical History Relation Name Comments CAD (Coronary Artery Disease) Mother chf Diabetes - Gestational Mother Relation Name Status Comments Father Maternal Grandfather Maternal Grandmother Alive Mother Alive Paternal Grandfather Paternal Grandmother Social History Tobacco Use Types Packs/Day Years Used Date Smoking Tobacco: Former Cigarettes 0.5 1 2 014 - 2014 Smokeless Tobacco: Never Comments:quit 2012 Alcohol Use Standard Drinks/Week Comments No 0 (1 standard drink = 0.6 oz pur e alcohol) occational Comments No Sex and Gender Information Value Date Recorded Sex Assigned at Not on file Legal Sex Female 8:54 AM SECURITY SYSTEM ANALYST Gender Identity Not on file Sexual Orientation Not on file Last Filed Vital Signs Vital Sign Reading Time Taken Comments Blood Pressure 171/108 03/08/2022 1:44 PM CDT Pulse 88 03/08/2022 1:44 PM CDT Temperature 36.9 C (98.5 F) 03/08/2022 1:44 PM CDT Respiratory Rate 18 03/08/2022 1:44 PM CDT Oxygen Saturation 98% 04/04/2019 2:14 PM CDT Inhaled Oxygen Concentration - - Weight 122 kg (269 lb) 03/08/2022 1:44 PM CDT Height 165.1 cm (5' 5) 03/08/2022 1:44 PM CDT Body Mass Index 44.76 03/08/2022 1:44 PM CDT Plan of Treatment Health Maintenance Due Date Last Done Comments HIV SCREENING 01/22/2008 HEPATITIS C SCREENING 01/17/2011 DTAP/TDAP/TD VACCINES (1 - Tdap) 01/22/2012 HEPATITIS B VACCINE (1 of 3 - 19+ 3-dose series) 01/22/2012 PAP SMEAR 2014 HPV VACCINE (1 - 3-dose SCDM series) 01/22/2020 COVID-19 VACCINE (1 - 2023-2 5 season) 2024 DEPRESSION SCREENING 10/09/2024 INFLUENZA VACCINE (#1) 2025 08/26/2010 ZOSTER VACCINE (1 of 2) 2043 HIB VACCINE Aged Out No longer eligi ble based on patient's age to complete this topic MENINGOCOCCAL (Group B) VACC INE SHARED DECISION-MAKING Aged Out No longer eligibl e based on patient's age to complete this topic MENINGOCOCCAL GROUPS A/C/Y/W VACCINE Aged Out No longer eligible b ased on patient's age to complete this topic PNEUMOCOCCAL VACCINE Aged Out No long er eligible based on patient's age to complete this topic Insurance [facility] Care Teams Timber Cutter Relationship Specialty Start Date End Date Sanjana Clemente APRN-CNP [address] [phone] PCP - General 01/31/23
--- OUTSIDE RECORDS SUMMARY | 2025-05-10 22:47 | XMS_ITS | Encounter Summary ---
Author Organization [facility] Address [address] [place] [address] Care Team Providers Care Application Security Developer Name Role Phone Byranna Galvan MD Primary Care Provider [phone] Encounter Details Date Type Department Care Team (Late st Contact Info) Description 04/02/2025 Results Follow-Up [facility] Medical Group Convenient Care at [address] [phone] Magnolia Prater PA [address] [place] [address] [address] [place] [address] XR Forearm Right 2 Vw, XR Wrist Right 3+ Vw Social History Tobacco Use Types Packs/Day Years Used Date Smoking Tobacco: Former Cigarettes 0.1 1 0 10/09/2017 - 10/09/2018 Smokeless Tobacco: Never Comments No Sex and Gender Information Value Date Recorded Sex Assigned at Not on file Legal Sex Female 1:40 AM NITROGLYCERIN DISTRIBUTOR Gender Identity Female 09/01/2021 4:56 AM NITROGLYCERIN DISTRIBUTOR Sexual Orientation Not on file documented as of this encounter Plan of Treatment Not on file documented as of this encounter Visit Diagnoses Not on filedocumented in this encounter Care Teams Application Security Developer Relationship Specialty Start Date End Date Bryanna Galvan MD [address] [place] [address] PCP - General Internal Medicine 12/24/23 documented as of this encounter
[2025-05-10 22:49] VITALS: BP 162/84; PULSE 74; RESP 18; TEMP 36.5; O2SAT 100
[2025-05-11 00:01] VITALS: BP 150/87; PULSE 75; RESP 18; O2SAT 100
--- OUTSIDE RECORDS SUMMARY | 2025-05-11 00:04 | XMS_ITS | Encounter Summary ---
Author Organization [facility] Address [facility] [place] [address] Care Team Providers Care Um Nurse Name Role Phone Bryanna Galvan MD Primary Care Provider [phone] Encounter Details Date Type Department Care Team (Latest Contact Info) Description 11/06/2023 VistaGen Therapeuticst Message Enc [facility] Medical Group Multispecialty Care - [place] [address] [address] [place], [place] [phone] Bryanna Galvan MD [address] [address] Abdominal ultrasound Social History Tobacco Use Types [...] Total Score: 2 10/04/20 23 11:23 AM CUSTOMER SERVICE REPRESENTATIVE TELLER documented as of this encounter Care Teams Um Nurse Relationship Specialty Start Date End Date Bryanna Galvan MD 1188 [facility] [address] [place], [place] [id number] PCP - General INTERNAL MEDICINE 10/04/23 documented as of this encounter
--- OUTSIDE RECORDS SUMMARY | 2025-05-11 00:04 | XMS_ITS | Clinical Summary ---
Author Organization [facility] Address [address] [place] [address] Care Team Providers Care Wood Borer Name Role Phone Bryanna Galvan MD Primary Care Provider Allergies Active Allergy Reactions Criticality Noted Date [...] (05/18/2021): Added automatically from request for surgery [id number] Palpitations 05/17/2021 Iron deficiency anemia 01/18/2021 Other [...] Description 04/02/2025 10:10 AM CDT Ancillary Procedure [facility] Imaging at [address] [phone] Wrist pain, right 04/02/2025 10:05 AM CDT Ancillary Procedure [facility] Imaging at [address] [address] Wrist pain, right 04/02/2025 9:45 AM CDT Office Visit [facility] Convenient Care at [address] [address] Magnolia Prater PA Wrist pain, right (Primary Dx) 04/02/2025 Results Follow-Up [facility] Care at [address] [address] Magnolia Prater PA XR Forearm Right 2 Vw, XR Wrist Right 3+ Vw 03/26/2025 3:30 PM CDT Ancillary Procedure [facility] Imaging at [address] [address] Right knee injury, initial encounter 03/26/2025 3:15 PM CDT Office Visit [facility] Convenient Care at [address] [address] Jacobs, Kristen B., ORNAMENTAL PAINTER Right knee injury, initial encounter (Primary Dx) 03/26/2025 Results Follow-Up [facility] Con[facility]ient Care at [address] [address] Kristen Jacobs NP XR Knee [...] on file Legal Sex Female 1:40 AM OLAP DEVELOPER Gender Identity Female 09/01/2021 4:56 AM OLAP DEVELOPER Sexual Orientation Not on file Obstetrics History [...] HPV MRNA E6/E7 Routine 09/23/2015 3:11 PM OLAP DEVELOPER from Last 3 Months or Most Recently [...] by Ricardo Cleary M.D. T: Report ID: [id number] Reading Location: [id number] Procedure Note Ricardo Cleary MD - 04/02/2025 [...] by Ricardo Cleary M.D. T: Report ID: [id number] Reading Location: [id number] us [facility]olia Roberta Tiller PA IMG XR [...] by Ricardo Cleary M.D. T: Report ID: [id number] Reading Location: [id number] Procedure Note Ricardo Cleary MD - 04/02/2025 [...] by Ricardo Cleary M.D. T: Report ID: [id number] Reading Location: [id number] [facility] QUEVEDO IMG XR PROCEDURES Final Result [...] by Ricardo Cleary M.D. T: Report ID: [id number] Reading Location: [id number] Procedure Note Ricardo Cleary MD - 03/26/2025 [...] by Ricardo Cleary M.D. T: Report ID: [id number] Reading Location: [id number] us Kristen ParkerElizabeth Jacobs ORNAMENTAL PAINTER IMG XR PROCEDURES Final Re sult * [facility]in[facility] Imaging Pap Reflex HPV mRNA E6/E7 (09/23/2015 3:11 PM OLAP DEVELOPER) CLINICAL INFORMATION [facility] HISTORICAL RESULTS Comment:Information not prov ided LMP: [facility] RES[facility] Comment:Information not prov ided PREV. PAP: [facility] H[facility] RESULTS Comment:Information not prov ided PREV. BX: [facility] HIST[facility]ICAL RESULTS Comment:Information not prov ided SOURCE: [facility]ISTORICAL RESULTS Comment:Cervix, Endocervix STATEMENT OF ADEQUACY: [facility] HISTORICAL RESULTS Comment: Satisfactory for evaluation. Endocervical/transformation zone component present. Age and/or menstrual status not provided INTERPRETATION/RESU LT: [facility] HIST[facility]ICAL RESULTS Comment:Negative for intraep ithelial lesion or malignancy. COMMENT: [facility] HISTOR[facility] RESULTS Comment: This Pap test has been evaluated with computer assisted technology. SPECIALIST FIELD ENGINEER: [facility] HISTORICAL RESULTS Comment: MEF, CT(ASCP) CT screening location: [place] [address] [place] [id number] 09/23/2015 3:11 PM OLAP DEVELOPER 09/29/2015 5:50 PM OLAP DEVELOPER Narrative [facility] HISTORICAL RESULTS - 09/29/2015 3:18 PM OLAP DEVELOPER 0 PERFORMING LAB: [place], [place] [address] [place] [id number] Prasad Ramos MD us Saeed Hart MD LAB PATHOLOGY ORDERABLES F inal Result [facility] HISTORICAL RESULTS from Last 3 Months or Most Recently Relevant to Health Maintenance [place] [address] [facility] FIELD [facility] Care Teams Wood Borer Relationship Specialty Start Date End Date Bryanna Galvan MD [address] [place] [address] PCP - General Internal Medicine 12/24/23
--- OUTSIDE RECORDS SUMMARY | 2025-05-11 00:04 | XMS_ITS | Encounter Summary ---
Author Organization [facility] Address [address] [facility] [place] [address] Care Team Providers Care Local Delivery Truck Driver Name Role Phone Brant Frances MD Primary Care Provider [phone] Brant Frances MD Primary Care Provider [phone] Sanjana Clemente APRNRAO Primary Care Provider [phone] Reason for Visit * Reason Onset Date Comments Follow-up 07/31/2017 Encounter Details Date Type Department Care Team (Late st Contact Info) Description 07/31/2017 Telephone [facility] Management Services [address] [place], [place] [address] [place] [address] [address] Follow-up Social History Tobacco Use Types Packs/Day Years Used Date Smoking Tobacco: Former Cigarettes 0.5 1 2 014 - 2014 Smokeless Tobacco: Never Alcohol Use Standard Drinks/Week Comments No 0 (1 standard drink = 0.6 oz pur e alcohol) occational Comments No Sex and Gender Information Value Date Recorded Sex Assigned at Not on file Legal Sex Female 8:54 AM APPRENTICESHIP TRAINING REPRESENTATIVE Gender Identity Not on file Sexual Orientation [...] mon. Psych clearance on chart, [facility] social insurance specialist notified clearance is from a DIGITAL STRATEGY SPECIALIST that is not usually accepted. Pt transfer to front office to talk to roslyn to schedule a specialist physicians visit, pt has not completed any at this time. Angeles Ribeiro LPN 07/31/2017 3:11 PM documented in this encounter Plan of Treatment Not on file documented as of this encounter Visit Diagnoses Not on filedocumented in this encounter Care Teams Local Delivery Truck Driver Relationship Specialty Start Date End Date Brant Frances MD [address] [facility] [address] [place] [address] PCP - General Internal Medicine 05/31/17 04/03/19 Brant Frances MD [address] [facility] [address] [place] [address] PCP - General Internal Medicine 04/04/19 01/30/23 Sanjana Clemente APRN-RAO [address] [facility] [address] [place] [address] PCP - General 01/31/23 documented as of this encounter
--- OUTSIDE RECORDS SUMMARY | 2025-05-11 00:04 | XMS_ITS | Clinical Summary ---
Author Organization [facility] Address [address] [place] [address] Care Team Providers Care Systems Auditor Name Role Phone Bryanna Galvan MD Primary Care Provider [phone] Allergies Active Allergy Reactions Criticality Noted Date Comments Ciprofloxacin Other (see comment) 03/08/2022 Sulfamethoxazole-Trimethoprim Itching,Rash High 05/10 Medications Iron-Vitamin C (VITRON-C) 65-125 MG Tab Take by mouth. Activ e albuterol sulfate HFA 108 (90 Base) MCG/ACT inhalerIndication s:Mild intermittent asthma without complication ([facility]) albuterol sulfate HFA 90 mcg/actuation aerosol inhaler INHALE 2 PUFFS BY MOUTH EVERY 4 HOURS NEEDED 18 g 6 Active HYDROcodone-aceta minophen (NORCO) 7.5-325 MG tablet [...] Date Resolved Date Arnold-Chiari malformation, type I ([facility]/HCC HHS/HCC) 10/06/2023 10/19/2023 Mild episode of [...] 2024 Annual Physical 10/04/2024 10/04/2023 PHQ-2 (Physician [facility] [place]) 10/09/2024 12/28/2023 Cervical Cancer Screening Pap Smear [...] HEPATITIS C ANTIBODY Routine 10/04/2023 11:21 AM EXPRESS MANAGER Annual physical exam Establishing care with new doctor, encounter for General medical exam from Last 3 Months or Most Recently Relevant to Health Maintenance Results * HEPATITIS C ANTIBODY (10/04/2023 11:21 AM EXPRESS MANAGER) HEPATITIS C AB NON-REACTI VE NON-REACT AGNIESZKA 10/05/2023 10:58 PM EXPRESS MANAGER [facility] Comment: ANTIBODIES TO HCV NOT DETECTED. DOES NOT EXCLUDE THE POSSIBILITY OF EXPOSURE TO HCV. 10/04/2023 11:2 1 AM EXPRESS MANAGER Bryanna Galvan MD LABORATORY Final Result [facility] [address] [place] [address], [id number] from Last 3 Months or Most Recently Relevant to Health Maintenance Insurance [facility] Care Teams Systems Auditor Relationship Specialty Start Date End Date Bryanna Galvan MD [address] [address] PCP - General INTERNAL MEDICINE 10/04/23
--- OUTSIDE RECORDS SUMMARY | 2025-05-11 00:04 | XMS_ITS | Encounter Summary ---
Author Organization [facility] Address [address] [place] [address] Care Team Providers Care Net Application Support Specialist Name Role Phone Bryanna Galvan MD Primary Care Provider [phone] Encounter Details Date Type Department Care Team (Late st Contact Info) Description 04/02/2025 Results Follow-Up [facility] Convenient Care at [address] [phone] Magnolia Prater PA [address] [place] [address] [address] [place] [address] XR Forearm Right 2 Vw, XR Wrist Right 3+ Vw Social History Tobacco Use Types Packs/Day Years Used Date Smoking Tobacco: Former Cigarettes 0.1 1 0 10/09/2017 - 10/09/2018 Smokeless Tobacco: Never Comments No Sex and Gender Information Value Date Recorded Sex Assigned at Not on file Legal Sex Female 1:40 AM SOFTWARE DEVELOPMENT LEADER Gender Identity Female 09/01/2021 4:56 AM SOFTWARE DEVELOPMENT LEADER Sexual Orientation Not on file documented as of this encounter Plan of Treatment Not on file documented as of this encounter Visit Diagnoses Not on filedocumented in this encounter Care Teams Net Application Support Specialist Relationship Specialty Start Date End Date Bryanna Galvan MD [address] [place] [address] PCP - General Internal Medicine 12/24/23 documented as of this encounter
--- OUTSIDE RECORDS SUMMARY | 2025-05-11 00:04 | XMS_ITS | Encounter Summary ---
Author Organization [facility] Address [facility] [place] [address] Care Team Providers Care Statistical Clerk Name Role Phone Bryanna Galvan MD Primary Care Provider [phone] Encounter Details Date Type Department Care Team (Latest Contact Info) Description 01/13/2024 WebNotest Message Enc [facility] Medical Group Multispecialty Care - [place] [address] [address] [place], [place] [phone] Bryanna Galvan MD [address] [place] [phone] question on antibiotic Social History Tobacco Use [...] Total Score: 2 10/04/20 23 11:23 AM WEATHER ANALYST documented as of this encounter Care Teams Statistical Clerk Relationship Specialty Start Date End Date Bryanna Galvan MD [address] [place] [address] PCP - General INTERNAL MEDICINE 10/04/23 documented as of this encounter
--- OUTSIDE RECORDS SUMMARY | 2025-05-11 00:04 | XMS_ITS | Encounter Summary ---
Author Organization [facility] Address [facility] [place] [address] Care Team Providers Care Anthropology Instructor Name Role Phone Bryanna Galvan MD Primary Care Provider [phone] Encounter Details Date Type Department Care Team (Late st Contact Info) Description 12/14/2023 CrowdFlower Message Enc [facility] Medical Group Multispecialty Care - [place] [address] [address] [place] [address] [facility], [facility] Provider Xray Result Social History Tobacco [...] Total Score: 2 10/04/20 23 11:23 AM LABORATORY EQUIPMENT INSTALLER documented as of this encounter Care Teams Anthropology Instructor Relationship Specialty Start Date End Date Bryanna Galvan MD [address] [facility] [address] [place] [address] PCP - General INTERNAL MEDICINE 10/04/23 documented as of this encounter
--- OUTSIDE RECORDS SUMMARY | 2025-05-11 00:04 | XMS_ITS | Continuity of Care Document ---
Author Organization [facility] Address [address] [place] [phone] Phone Care Team Providers Care Market Relationship Manager Name Role Phone Hubert MITCHELL, Nima [...] Diagnoses Date Provider Providers Copied on Encounter [facility] , [address] [place] [address], [id number] , tel:[phone] No Information Hubert Herring. [address], [place], [id number] , . tel: [phone] Referring Provider: Nima Beltrányum, [facility] [place], [address] . tel:[phone] sulting Provider: Nima Foyyyum, [address], [place], [address] . tel:[phone] [facility], [address] [place] [address], [id number] , tel: [phone] [facility] [place] No Information 5 Hubert Nima. [address], [place], [id number] , . tel: [phone] Referring Provider: Bryanna Galvan, [address] [facility] [address], [place], [address]. tel:[phone] [facility], [address] [place] [address], [id number] , tel: [phone] [facility] [place] No Information 5 Hubert Nima. [address] [place], [place] [address], [place], [id number] , . tel: [phone] [facility], [address] [place] [address], [id number] , tel: [phone] [facility] [place] PalpitationsEncounter for screening for cardiovascular disordersEncounter for other preprocedural examinationObesityOth er forms of dyspnea 5 Hubert [facility]. [address] [place], [place], [id number] , . tel: [phone] Family History Family Member Type Diagnosis Age At Onset No Information Payers Payer name Insurance type Covered green party ID Hortensia michelle(s) [facility] [id number] Social History Type Description Quantity Date Captured [...]
--- OUTSIDE RECORDS SUMMARY | 2025-05-11 00:04 | XMS_ITS | Clinical Summary ---
Author Organization [facility] Address [address], [facility] [address] [place] [address] Phone Care Team Providers Care Global Supply Chain Director Name Role Phone Brant Frances MD Primary Care Provider [phone] Lavern Waite PAC Unavailable Allergies Active Allergy [...] age to complete this topic Insurance MEDICAID [facility] Care Teams Global Supply Chain Director Relationship Specialty Start Date End Date Brant Frances MD PCP - General Internal Medicine 05/10/19 Lavern Waite, RAY [address] [place] [address] Referring Provider 05/10/19
--- OUTSIDE RECORDS SUMMARY | 2025-05-11 00:04 | XMS_ITS | Encounter Summary ---
Author Organization [facility] Address [facility] [place] [address] Care Team Providers Care Court Recorder Name Role Phone Bryanan Galvan MD Primary Care Provider Encounter Details Date Type Department Care Team (Latest Contact Info) Description 10/18/2023 Tutor Assignmentt Message Enc [facility] Medical Group Multispecialty Care - [place] [address] [address] [place], [place] [phone] Bryanna Galvan MD [address] [address] Abdomen ultrasound Social History Tobacco Use Types [...] Total Score: 2 10/04/20 23 11:23 AM HIGHBALLER documented as of this encounter Care Teams Court Recorder Relationship Specialty Start Date End Date Bryanna Galvan MD [address] [facility] [address] [place], [place] [address] PCP - General INTERNAL MEDICINE 10/04/23 documented as of this encounter
--- OUTSIDE RECORDS SUMMARY | 2025-05-11 00:04 | XMS_ITS | Encounter Summary ---
Author Organization [facility] Address [facility] [place] [address] Care Team Providers Care Web Publisher Name Role Phone Bryanna Galvan MD Primary Care Provider [phone] Encounter Details Date Type Department Care Team (Latest Contact Info) Description 11/21/2023 gopogot Message Enc [facility] Multispecialty Care - [place] [address] [address] [place], [place] [phone] Bryanna Galvan MD [address] [phone] Gallbladder and blood sugar Social History Tobacco [...] Total Score: 2 10/04/20 23 11:23 AM ASSEMBLER WIRE GROUP documented as of this encounter Care Teams Web Publisher Relationship Specialty Start Date End Date Bryanna Galvan MD [address] [facility] [address] [place], [place] [address] PCP - General INTERNAL MEDICINE 10/04/23 documented as of this encounter
--- OUTSIDE RECORDS SUMMARY | 2025-05-11 00:04 | XMS_ITS | Clinical Summary ---
Author Organization [facility] Address [address] [place] [address] Phone Care Team Providers Care Small Wind Energy Installer Name Role Phone Provider, Abstract Primary Care [...] 165.1 cm (5' 5) 11/02/2021 3:33 PM SOFTWARE APPLICATIONS ARCHITECT Body Mass Index 46.58 11/02/2021 3:33 PM SOFTWARE APPLICATIONS ARCHITECT Plan of Treatment Health Maintenance Due Date Last Done Comments HPV VACCINES (1 - 3-dose series) 01/22/2008 DTAP/TDAP/TD VACCINES (1 - Tdap) 01/22/2012 HEPATITIS B VACCINES (1 of 3 - 19+ 3-dose series) 01/07 HPV/Cotest (21-29) 2014 HPV/Cotest (30-65) 2023 CERVICAL CANCER SCREENING 05/04/2024 PAP SMEAR 05/04/2024 05/04/2021 INFLUENZA VACCINE (#1) 2025 Insurance [facility] [address] MEDICAID Care Teams Small Wind Energy Installer Relationship Specialty Start Date End Date Provider, Abstract NO ADDRESS ON FILE PCP - General 01/18/21
--- OUTSIDE RECORDS SUMMARY | 2025-05-11 00:04 | XMS_ITS | Encounter Summary ---
Author Organization [facility] Address [address] [place] [address] Care Team Providers Care Golf Sales Associate Name Role Phone Bryanna Galvan MD Primary Care Provider [phone] Encounter Details Date Type Department Care Team (Late st Contact Info) Description 03/26/2025 Results Follow-Up [facility] Convenient Care at [address] [phone] Kristen Jacobs NP [address] [facility] [address] [place] [address] XR Knee Right 3 Views Social History Tobacco Use Types Packs/Day Years Used Date Smoking Tobacco: Former Cigarettes 0.1 1 0 10/09/2017 - 10/09/2018 Smokeless Tobacco: Never Comments No Sex and Gender Information Value Date Recorded Sex Assigned at Not on file Legal Sex Female 1:40 AM SOFTWARE PERFORMANCE ENGINEER Gender Identity Female 09/01/2021 4:56 AM SOFTWARE PERFORMANCE ENGINEER Sexual Orientation Not on file documented as of this encounter Plan of Treatment Not on file documented as of this encounter Visit Diagnoses Not on filedocumented in this encounter Care Teams Golf Sales Associate Relationship Specialty Start Date End Date Bryanna Galvan MD [address] [place] [address] PCP - General Internal Medicine 12/24/23 documented as of this encounter
--- OUTSIDE RECORDS SUMMARY | 2025-05-11 00:04 | XMS_ITS | Encounter Summary ---
Author Organization [facility] Address [facility] [place] [address] Care Team Providers Care Local Bulk Driver Name Role Phone Bryanna Galvan MD Primary Care Provider [phone] Encounter Details Date Type Department Care Team (Late st Contact Info) Description 02/08/2024 [place] OTR Message [facility] Orthopedic & Sports Medicine [address] [address] [employer], [facility] Provider Physical therapy Social History Tobacco Use [...] Total Score: 2 10/04/20 23 11:23 AM MD UROLOGIST documented as of this encounter Care Teams Local Bulk Driver Relationship Specialty Start Date End Date Bryanna Galvan MD [address] [address] PCP - General INTERNAL MEDICINE 10/04/23 documented as of this encounter
--- OUTSIDE RECORDS SUMMARY | 2025-05-11 00:05 | XMS_ITS | Encounter Summary ---
Author Organization [facility] Facility Care Team Providers Care Manager Manufacturing Name Role Phone Miscellaneous, Not In File Primary Care Provider Unavailable Wei Chew Primary Care Provider Unavaila Sanjana Silver NP Primary Care Provider [phone] Bryanna Galvan MD Primary Care Provider [phone] Encounter Details Date Type Department Care Team (Latest Contact Info) Description 11/25/2015 Orders Only [facility] CLINCONV Provider, MD Ino [address] [place] [address] Social History Tobacco Use Types Packs/Day Years Used Date Smoking Tobacco: Never Assessed Comments Unknown Sex and Gender Information Value Date Recorded Sex Assigned at Not on file Legal Sex Female 1:40 AM REPAIR COIL WINDER Gender Identity Female 09/01/2021 4:56 AM REPAIR COIL WINDER Sexual Orientation Not on file documented as of this encounter Plan of Treatment Not on file documented as of this encounter Procedures Procedure Name Priority Date/Time Associated Diagnosis Comments SCAN - LABS 12/02/2015 12:00 AM REPAIR COIL WINDER SCAN - LABS 12/02/2015 12:00 AM REPAIR COIL WINDER SCAN - LABS 12/02/2015 12:00 AM REPAIR COIL WINDER documented in this encounter Results * SCAN - LABS (12/02/2015 12:00 AM REPAIR COIL WINDER) Narrative 12/02/2015 12:00 AM REPAIR COIL WINDER Ordered by an unspecified provider. Historical Provider Final Res ult * SCAN - LABS (12/02/2015 12:00 AM REPAIR COIL WINDER) Narrative 12/02/2015 12:00 AM REPAIR COIL WINDER Ordered by an unspecified provider. Historical Provider MD Final Res ult * SCAN - LABS (12/02/2015 12:00 AM REPAIR COIL WINDER) Narrative 12/02/2015 12:00 AM REPAIR COIL WINDER Ordered by an unspecified provider. Historical Provider MD Final Res ult documented in this encounter Visit Diagnoses Not on filedocumented in this encounter Care Teams Manager Manufacturing Relationship Specialty Start Date End Date Miscellaneous, Not In File PCP - General 01/24/17 Wei Chew PCP - General 01/26/18 12/26/18 Sanjana Clemente NP PCP - General Nurse Practitioner 05/04/21 12/23/23 Bryanna Galvan MD [address] [place] [address] PCP - General Internal Medicine 12/24/23 documented as of this encounter
--- OUTSIDE RECORDS SUMMARY | 2025-05-11 00:05 | XMS_ITS | Encounter Summary ---
Author Organization [facility] Facility Care Team Providers Care Coiler Operator Name Role Phone Miscellaneous, Not In File Primary Care Provider Unavailable Wei Chew Primary Care Provider Unavaila Sanjana Silver NP Primary Care Provider [phone] Bryanna Galvan MD Primary Care Provider [phone] Encounter Details Date Type Department Care Team (Latest Contact Info) Description 04/02/2016 Orders Only [facility] CLINCONV Provider, MD Ino [address] [place] [address] Social History Tobacco Use Types Packs/Day Years Used Date Smoking Tobacco: Never Assessed Comments Unknown Sex and Gender Information Value Date Recorded Sex Assigned at Not on file Legal Sex Female 1:40 AM PEDIATRIC ONCOLOGY NURSE Gender Identity Female 09/01/2021 4:56 AM PEDIATRIC ONCOLOGY NURSE Sexual Orientation Not on file documented as [...] on filedocumented in this encounter Care Teams Coiler Operator Relationship Specialty Start Date End Date Miscellaneous, Not In File PCP - General 01/24/17 Wei Chew PCP - General 01/26/18 12/26/18 Sanjana Clemente NP PCP - General Nurse Practitioner 05/04/21 12/23/23 Bryanna Galvan MD [address] [place] [address] PCP - General Internal Medicine 12/24/23 documented as of this encounter
--- OUTSIDE RECORDS SUMMARY | 2025-05-11 00:05 | XMS_ITS | Encounter Summary ---
Author Organization [facility] Facility Care Team Providers Care Forensics Analyst Name Role Phone Miscellaneous, Not In File Primary Care Provider Unavailable Wei Chew Primary Care Provider Unavaila Sanjana Silver NP Primary Care Provider [phone] Bryanna Galvan MD Primary Care Provider [phone] Encounter Details Date Type Department Care Team (Latest Contact Info) Description 06/01/2016 Orders Only [facility] CLINCONV Provider, MD Ino [address] [place] [address] Social History Tobacco Use Types Packs/Day Years Used Date Smoking Tobacco: Never Assessed Comments Unknown Sex and Gender Information Value Date Recorded Sex Assigned at Not on file Legal Sex Female 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
--- OUTSIDE RECORDS SUMMARY | 2025-05-11 00:05 | XMS_ITS | Encounter Summary ---
Author Organization [facility] Address [facility] [place] [address] Care Team Providers Care Copy Chief Name Role Phone Bryanna Galvan MD Primary Care Provider [phone] Encounter Details Date Type Department Care Team (Latest Contact Info) Description 10/05/2023 brotips Message Enc [facility] - [place] [address] [address] [place], [place] [id number] Bryanna Galvan MD [address] [address] Chiari malformation type 1 Social History Tobacco [...] Total Score: 2 10/04/20 23 11:23 AM SCIENTIST ENGINEER documented as of this encounter Care Teams Copy Chief Relationship Specialty Start Date End Date Bryanna Galvan MD [address] [facility] [address] [place], [place] [id number] PCP - General INTERNAL MEDICINE 10/04/23 documented as of this encounter
--- OUTSIDE RECORDS SUMMARY | 2025-05-11 00:05 | XMS_ITS | Continuity of Care Document ---
Author Organization [facility] Address [address] [place] [address] [place] [address] Phone Care Team Providers Care Editor Managing Director Name Role Phone Dick Salinas MD Unavailable [...] Diagnoses Date Provider Providers Copied on Encounter [facility], [address] [place] [place], [id number], tel:[phone] [facility] No Information Brad Jennings. [address], [place], [address], [place]. tel:[phone] Referring Provider: Dick Salinas, [address], [place], [place], [id number]. tel:[phone] PREV VISIT, NEW, AGE 18-39 [facility], [address], [place], [place], [id number], [place] tel:[phone] [facility] PHysical (chief complaint) Encntr for general adult medical exam w/o abnormal findings Brad Jennings. [address], [address], [place], [place], [id number], . tel:[phone] Referring Provider: Stephany Jaime [address], [place], [place], [id number]. tel:[phone] Family History Family Member Type Diagnosis Age [...] w/o abnormal findings) ordered Referral Ordered: Prem Stewart (related to Encntr for general adult medical exam w/o abnormal findings) ordered Referral Referred To: Physical Therapy Ordered: Referrals: Physical Therapy. Evaluate and treat ordered Referral Referred To: Prem Stewart [address] [place], [phone] Ordered: Referrals: Prem Stewart. Evaluate and treat [...]
--- OUTSIDE RECORDS SUMMARY | 2025-05-11 00:05 | XMS_ITS | Referral Summary ---
Author Organization [facility] Address [address] [place] [address] Care Team Providers Care Horse Wrangler Name Role Phone Bryanna Galvan MD Primary Care Provider [phone] Encounters Date Type Department Care Team Description 04/02/2025 Results Follow-Up [facility] Convenient Care at [address] [address] Magnolia Prater PA XR Forearm Right 2 Vw, XR Wrist Right 3+ Vw 04/02/2025 10:10 AM CDT Ancillary Procedure [facility] Imaging at [address] [address] Wrist pain, right 04/02/2025 10:05 AM CDT Ancillary Procedure [facility] Imaging at [address] [address] Wrist pain, right 04/02/2025 9:45 AM CDT Office Visit [facility] at [address] [address] Magnolia Prater PA Wrist pain, right (Primary Dx) 03/26/2025 Results Follow-Up [facility] at [address] [address] Kristen Jacobs NP XR Knee Right 3 Views 03/26/2025 3:30 PM CDT Ancillary Procedure [facility] Imaging at [address] [phone] Right knee injury, initial encounter 03/26/2025 3:15 PM CDT Office Visit [facility] Convenient Care at [address] [phone] Kristen Jacobs, SPEAKING UNIT ASSEMBLER Right knee injury, initial encounter (Primary Dx) [...] (05/18/2021): Added automatically from request for surgery [id number] Palpitations 05/17/2021 Iron deficiency anemia 01/18/2021 Other [...] on file Legal Sex Female 1:40 AM TILE BURNER Gender Identity Female 09/01/2021 4:56 AM TILE BURNER Sexual Orientation Not on file Last Filed [...] HPV MRNA E6/E7 Routine 09/23/2015 3:11 PM TILE BURNER from Last 3 Months or Most Recently [...] by Ricardo Cleary M.D. T: Report ID: [id number] Reading Location: [id number] Procedure Note Ricardo Cleary MD - 04/02/2025 [...] by Ricardo Cleary M.D. T: Report ID: [id number] Reading Location: [id number] [facility] Granados Sonyamira EMY IMG XR PROCEDURES [...] by Ricardo Cleary M.D. T: Report ID: [id number] Reading Location: [id number] Procedure Note Ricardo Cleary MD - 04/02/2025 [...] by Ricardo Cleary M.D. T: Report ID: [id number] Reading Location: [id number] [facility] QUEVEDO IMG XR PROCEDURES Final Result [...] by Ricardo Cleary M.D. T: Report ID: [id number] Reading Location: [id number] Procedure Note Ricardo Cleary MD - 03/26/2025 [...] by Ricardo Cleary M.D. T: Report ID: [id number] Reading Location: [id number] us Kristen Jacobs SPEAKING UNIT ASSEMBLER IMG XR PROCEDURES Final Re sult * [facility] Pap Reflex HPV mRNA E6/E7 (09/23/2015 3:11 PM TILE BURNER) CLINICAL INFORMATION [facility] HISTORICAL RESULTS Comment:Information not prov ided LMP: [facility] HISTORICAL RESULTS Comment:Information not prov ided PREV. PAP: [facility] HISTORICAL RESULTS Comment:Information not prov ided PREV. BX: [facility] HISTORICAL RESULTS Comment:Information not prov ided SOURCE: [facility] HISTORICAL RESULTS Comment:Cervix, Endocervix STATEMENT OF ADEQUACY: [facility] HISTORICAL RESULTS Comment: Satisfactory for evaluation. Endocervical/transformation zone component present. Age and/or menstrual status not provided INTERPRETATION/RESU LT: [facility] HISTORICAL RESULTS Comment:Negative for intraep ithelial lesion or malignancy. COMMENT: [facility] HISTORICAL RESULTS Comment: This Pap test has been evaluated with computer assisted technology. GOVERNMENT SERVICE EXECUTIVE: [facility] HISTORICAL RESULTS Comment: MEF, CT(ASCP) CT screening location: [employer] [place] [address] Administration DWAYNE [place] [address] 09/23/2015 3:11 PM TILE BURNER 09/29/2015 5:50 PM TILE BURNER Narrative [facility] HISTORICAL RESULTS - 09/29/2015 3:18 PM TILE BURNER 0 PERFORMING LAB: [place] [address] [address] [place] [address] Prasad Ramos MD Saeed Hart MD LAB PATHOLOGY ORDERABLES F inal Result [facility] HISTORICAL RESULTS from Last 3 Months or Most Recently Relevant to Health Maintenance Insurance [facility] OTHER Address: [address] [place] [phone] [facility] Care Teams Horse Wrangler Relationship Specialty Start Date End Date Bryanna Galvan MD [address] [place] [address] PCP - General Internal Medicine 12/24/23
--- OUTSIDE RECORDS SUMMARY | 2025-05-11 00:05 | XMS_ITS | Clinical Summary ---
Author Organization [facility] Address [address] [facility] [place] [address] Care Team Providers Care Stay Cutter Name Role Phone HopSanjana morales NEW Primary Care Provider [phone] Source Comments [facility],non-owned Affiliates and Associated Physician Practices is amultiple site organization consisting of ambulatory clinics and hospital sitesin [place], [place], [place] and [place]. This disclosure is being madepursuant to the Care Everywhere program and may not contain all information available regarding this patient. Last updated 18.[facility] Allergies Active Allergy Reactions Criticality Noted Date [...] norethindrone (Ortho Micronor; Nor-Qd; Cheryl; Shannon; Ainsley-Be; Nancy; Jolivette) 0.35 MG tablet Take 1 (one) tablet by mouth once daily 04/13/20 22 Active Active Problems Problem Noted Date Diagnosed Date Footprints Patient 02/15/2016 Overview (02/15/2016): Tish Andrews RN will be [facility] FP physician primary care sports medicine, call [phone] Bilateral hydronephrosis 03/17/2010 Prior scan suggested placent al abnormality in second trimester, antepartum Suspected problem with placenta not found Resolved Problems Problem Noted Date Diagnosed Date Resolved Date lung mass 02/11/2016 06/01/2016 Supervision of high risk pre gnancy in second trimester 02/11/2016 06/01/2016 abnormality in - Lung Mass 01/28/2016 06/10/2016 Overview (04/19/2016): Images from the original note were not included. ASSISTED PATIENT--PLEASE CALL [phone] IF TRIAGED OR ADMITTED Care Provider: Dr. Hart (OB); [facility] [place] consultants involved: RN-Fabrizio/Sandra; MFM-Brian Lomeli; Cardiology-Khadar; Footprints-Darryl Diagnosis: Bronchopulmonary Sequestration care needed at : Chest Xray Planned care after delivery: Follow up with pediatric surgery for appointment at 2 weeks of life Skein Winder: Dr. York, [place] Planned surveillance: Next ASSISTED appointment 05.05.2016 Planned delivery location: [facility] Planned GA at delivery: FT Planned mode of delivery: hx Placenta Instructions: not needed for further studies by ASSISTED Genetics note: genetic diagnostic testing was not performed. Please request Genetics consult postnatally if clinically indicated by calling the Genetics office at [phone] prior to ordering genetic studies. Locomotive Firer Concerns: 02/11/16- Patient with history of anxiety [...] on file Legal Sex Female 8:54 AM GERIATRIC AIDE Gender Identity Not on file Sexual Orientation [...] patient's age to complete this topic Insurance [facility] Care Teams Stay Cutter Relationship Specialty Start Date End Date Sanjana Clemente APRN-CNP [address] [phone] PCP - General 01/31/23
--- OUTSIDE RECORDS SUMMARY | 2025-05-11 00:05 | XMS_ITS | Encounter Summary ---
Author Organization [facility] Facility Care Team Providers Care Ice Cutter Name Role Phone Miscellaneous, Not In File Primary Care Provider Unavailable Wei Chew Primary Care Provider Unavaila Sanjana Silver NP Primary Care Provider [phone] Bryanna Galvan MD Primary Care Provider [phone] Encounter Details Date Type Department Care Team (Latest Contact Info) Description 11/02/2015 Orders Only [facility] CLINCONV Provider, MD Ino [address] [place] [address] Social History Tobacco Use Types Packs/Day Years Used Date Smoking Tobacco: Never Assessed Comments Unknown Sex and Gender Information Value Date Recorded Sex Assigned at Not on file Legal Sex Female 1:40 AM COLLECTIONS SPECIALIST Gender Identity Female 09/01/2021 4:56 AM COLLECTIONS SPECIALIST Sexual Orientation Not on file documented as of this encounter Plan of Treatment Not on file documented as of this encounter Procedures Procedure Name Priority Date/Time Associated Diagnosis Comments SCAN - LABS 11/11/2015 12:00 AM COLLECTIONS SPECIALIST documented in this encounter Results * SCAN - LABS (11/11/2015 12:00 AM COLLECTIONS SPECIALIST) Narrative 11/11/2015 12:00 AM COLLECTIONS SPECIALIST Ordered by an unspecified provider. Historical Provider Final Res ult documented in this encounter Visit Diagnoses Not on filedocumented in this encounter Care Teams Ice Cutter Relationship Specialty Start Date End Date Miscellaneous, Not In File PCP - General 01/24/17 Wei Chew PCP - General 01/26/18 12/26/18 Sanjana Clemente NP PCP - General Nurse Practitioner 05/04/21 12/23/23 Bryanna Galvan MD [address] [place] [address] PCP - General Internal Medicine 12/24/23 documented as of this encounter
[2025-05-11] MEDS: ACETAMINOPHEN 325 MG TABLET 650 MG PO (00:06)
[2025-05-11] MEDS: CYCLOBENZAPRINE HCL 10 MG TABLET PO (00:06)
[2025-05-11] MEDS: ONDANSETRON INJ 4 MG/2 ML VIAL IV PUSH (00:12)
[2025-05-11] MEDS: KETOROLAC 30 MG/ML VIAL (*BKC) IV PUSH (00:13)
[2025-05-11] MEDS: MORPHINE SULFATE (*CRX) 4 MG/ML INJ IV PUSH (00:15)
--- NOTE | 2025-05-11 00:27 | ED_ITS ---
HPI - Fall General Chief Complaint: Fall <MARI Carty Last Filed: 05/11/25 02:56> Stated Complaint: Fell/trip injury to back and right knee <MARI Carty Last Filed: 05/11/25 02:56> Time Seen by Provider: 05/10/25 23:00 <MARI Carty Last Filed: 05/11/25 02:56> Source: patient <MARI Carty Last Filed: 05/11/25 02:56> Mode of arrival: ambulatory <MARI Carty Last Filed: 05/11/25 02:56> Limitations: no limitations <MARI Carty Last Filed: 05/11/25 02:56> History of Present Illness HPI Narrative: Patient is a 28-year-old female who presents the ED with report of right hip and lower back pain. Patient reports she fell in a ditch tonight and landed onto her right side. Complains of pain to her right knee, right hip, right lower back, across her lower abdomen. Has had difficulty ambulating due to the pain. Has history of chronic back pain, sees pain management. Is on chronic [place] therapy at home. She states she took a [place] 7.5 mg around 8:30 p.m. tonight. Denies head injury or LOC. Denies bowel or bladder incontinence, saddle anesthesia, weakness. <MARI Carty Last Filed: 05/11/25 02:56> Related Data Home Medications: Home Medications ?Medication ?Instructions ?Recorded ?Confirmed ?Last Taken ?Type ferrous gluconate 324 mg (38 mg mg 04/01/21 09/13/23 Unknown History iron) tablet hydrocodone 10 mg-acetaminophen tablet 05/09/25 Unknown History 325 mg tablet <MARI Carty Last Filed: 05/11/25 02:56> Allergies/Adverse Reactions: Allergies Allergy/AdvReac Type Severity Reaction Status Date / Time sulfamethoxazole Allergy Intermediate BLISTERS Verified 05/09/25 19:15 IN MOUTH trimethoprim Allergy Intermediate BLISTERS Verified 05/09/25 19:15 IN MOUTH <Vanda Dodson PA-C - Last Filed: 05/11/25 02:56> Review of Systems Review of Systems: All systems reviewed & are unremarkable except as noted in HPI. <Vanda Dodson PA-C - Last Filed: 05/11/25 02:56> All systems reviewed & are unremarkable except as noted in HPI and below <Vanda Dodson PA-C - Last Filed: 05/11/25 02:56> [facility] Past Medical History Medical History: Medical History Prolapsed bladder Anxiety Depression UTI (urinary tract infection) Asthma Anemia receives iron infusions <Vanda Dodson PA-C - Last Filed: 05/11/25 02:56> Surgical History Surgical History: Surgical History Hx of tubal ligation H/O dilation and curettage Hx of section Delivery by section <Vanda Dodson PA-C - Last Filed: 05/11/25 02:56> Family History Family History: Family History Mother Heart disease Hypertension <Vanda Dodson PA-C - Last Filed: 05/11/25 02:56> Social History Social History: Social History Smoking status: Never smoker Alcohol intake: never Substance use type: does not use Lack of Transportation: No Lack of Food: Never True Current Housing: I Have Housing Concerned About Future Housing: No Difficulty Paying Gas/Electric Bills: No Difficulty Paying for Meds: No Currently Unemployed: No Education: High School Diploma/GED Difficulty w/ Childcare or Family Care: No Living arrangements: with family Occupation/Education: unemployed Gender identity (if verbalized by the patient): Female <Vanda Dodson PA-C - Last Filed: 05/11/25 02:56> Exam Narrative: GENERAL: Well appearing, morbidly obese with BMI of 46.8, non-toxic, in no acute distress. HEAD: Normocephalic, atraumatic. RESPIRATORY: Airway patent, respirations nonlabored. Clear to auscultation bilaterally, no rales, rhonchi, wheezing. CARDIOVASCULAR: Regular rate and rhythm without murmurs, rubs, or gallops. ABDOMINAL: Soft, mild diffuse tenderness throughout lower abdomen, nondistended. Normoactive BS. MUSCULOSKELETAL: Moves all extremities. No gross deformities. Diffuse tender palpation throughout lateral/superior right anterior knee. TTP to right lateral hip joint, lower midline lumbar region, right lumbosacral region. No palpable bony deformities or step-offs. Sensation intact. SKIN: Warm, dry, normal color. NEURO: A&O X3. Speech clear. Cranial nerves II-XII grossly intact. Steady gait. No ataxic movements. PSYCHIATRIC: Appropriate mood and affect. Normal interaction. <MARI Carty Last Filed: 05/11/25 02:56> Course Vital Signs Vital signs: Vital Signs Temperature 97.7 F 05/10/25 22:49 Pulse Rate 74 05/10/25 22:49 Respiratory Rate 18 05/10/25 22:49 Blood Pressure 162/84 H 05/10/25 22:49 Pulse Oximetry 100 05/10/25 22:49 Oxygen Delivery Room Air 05/10/25 22:49 Temperature 97.7 F 05/10/25 22:49 Pulse Rate 63 05/11/25 02:17 Respiratory Rate 18 05/11/25 00:01 Blood Pressure 137/85 05/11/25 02:17 Pulse Oximetry 98 05/11/25 02:17 Oxygen Delivery Room Air 05/10/25 22:49 <Vanda Dodson PA-C - Last Filed: 05/11/25 02:56> Vital Signs Temperature 97.7 F 05/10/25 22:49 Pulse Rate 74 05/10/25 22:49 Respiratory Rate 18 05/10/25 22:49 Blood Pressure 162/84 H 05/10/25 22:49 Pulse Oximetry 100 05/10/25 22:49 Oxygen Delivery Room Air 05/10/25 22:49 Temperature 97.7 F 05/10/25 22:49 Pulse Rate 63 05/11/25 02:17 Respiratory Rate 18 05/11/25 00:01 Blood Pressure 137/85 05/11/25 02:17 Pulse Oximetry 98 05/11/25 02:17 Oxygen Delivery Room Air 05/10/25 22:49 <Winter Whelan MD - Last Filed: 05/11/25 04:14> MDM - Fall MDM Narrative Medical decision making narrative: Patient presented to ED status post mechanical fall into a ditch. Complaining of pain to right knee, right hip, right lower back, lower abdomen. Vital signs stable. Patient neurologically intact. No evidence of cord compression or cauda equina. Seems most likely musculoskeletal in nature. Given pain control. X-ray of right knee negative for fracture or joint effusion. Does show arthritic changes. CT scan of abdomen/pelvis with lumbar spine was obtained. Care signed out to Dr. Whelan at shift change pending STAT RAD CT imaging. <Vanda Dodson PA-C - Last Filed: 05/11/25 02:56> Patient presented to ED status post mechanical fall into a ditch. Complaining of pain to right knee, right hip, right lower back, lower abdomen. Vital signs stable. Patient neurologically intact. No evidence of cord compression or cauda equina. Seems most likely musculoskeletal in nature. Given pain control. X-ray of right knee negative for fracture or joint effusion. Does show arthritic changes. CT scan of abdomen/pelvis with lumbar spine was obtained. Care signed out to Dr. Whelan at shift change pending STAT RAD CT imaging. \/ // CT returned without any acute findings. Will be discharged with close follow-up to PCP and return precautions. <Winter Whelan MD - Last Filed: 05/11/25 04:14> Medical Records Attestation: I reviewed the patient's medical records. <Vanda Dodson PA-C - Last Filed: 05/11/25 02:56> Imaging Data Attestation: I personally reviewed and interpreted this imaging study as follows: <Vanda Dodson PA-C - Last Filed: 05/11/25 02:56> Radiologist's impression: STAT RAD XR R knee: Impression: Comparison to 11/28. Mild narrowing and osteophytosis of the medial, lateral, and patellofemoral joint spaces consistent with osteoarthritis. Bone mineral density is normal. No acute fracture or dislocation is seen. No significant joint effusion is identified. Soft tissues are unremarkable. Incidental findings. <MARI Carty Last Filed: 05/11/25 02:56> Discharge Plan Discharge Clinical Impression: Fall from ground level Strain of lumbar region Qualifiers: Encounter type: initial encounter Qualified Code(s): S39.012A - Strain of muscle, fascia and tendon of lower back, initial encounter Strain of right knee Qualifiers: Encounter type: initial encounter Qualified Code(s): S86.911A - Strain of unspecified muscle(s) and tendon(s) at lower leg level, right leg, initial encounter <MARI Carty Last Filed: 05/11/25 02:56> Patient Disposition: Home <MARI Carty Last Filed: 05/11/25 02:56> Condition: Stable <MARI Caryt Last Filed: 05/11/25 02:56> Instructions: Antibiotic Form, Knee Sprain (ED), Low Back Strain (ED) <MARI Carty Last Filed: 05/11/25 02:56> Additional Instructions: Continue Tylenol and Ibuprofen, and your home [place] as needed for pain. You may use ice/heat, lidocaine patches to area of pain. Take muscle relaxers as needed and prescribed. Recommend taking these at night as they may cause sedation. Do not drive, operate heavy machinery, drink alcohol while on muscle relaxers as this may cause further sedation. Follow-up with your primary care doctor and boat painter for further evaluation. Return to the ED if you experience worsening or severe pain, recurrent injury, numbness in groin or legs, going to the bathroom without meaning to, unable to keep down food or drink, or any other symptoms of concern. <MARI Carty Last Filed: 05/11/25 02:56> Patient Language: Estonian <MARI Carty Last Filed: 05/11/25 02:56> Prescriptions: New lidocaine 5 % adhesive patch,medicated 1 patch topical DAILY Qty: 15 0RF Rx Instructions: leave on most painful area for up to 12 hrs cyclobenzaprine 5 mg tablet 5 mg PO TID PRN (Reason: muscle spasm) Qty: 15 0RF No Action hydrocodone-acetaminophen 10-325 mg tablet prednisone 10 mg tablet 10 mg PO BID Qty: 20 0RF cyclobenzaprine 10 mg tablet 10 mg PO TID PRN (Reason: muscle spasm) Qty: 14 0RF ferrous gluconate 324 mg (38 mg iron) tablet albuterol sulfate 90 mcg/actuation HFA aerosol inhaler 2 puff inhalation QID PRN (Reason: shortness of breath or wheezing) Qty: 8.5 0RF hydrocodone-acetaminophen 5-325 mg tablet 1 tablet PO Q6H PRN (Reason: pain) Qty: 10 0RF ondansetron 4 mg tablet,disintegrating 4 mg PO Q6H PRN (Reason: nausea and vomiting) Qty: 10 0RF <Vanda Dodson PA-C - Last Filed: 05/11/25 02:56> Follow-up/Referrals: Mandy,MD Bryanna [Primary Care Provider] - <Vanda Dodson PA-C - Last Filed: 05/11/25 02:56>
--- NOTE | 2025-05-11 00:31 | PC.NURSE ---
30yo F c/o R sided pain s/p fall in a ditch. Denies sxs prior to the fall, just slipped. C/o R hip and R lower back pain. Hx of bulging discs and cord compression. Endorses tingling to bilat feet but states this is normal. Denies loss of bowel/bladder. Denies cervical pain or hitting head. Takes hydrocodone for pain at home, last took at 2029. No obvious injuries.
[2025-05-11 00:45] VITALS: BP 153/78
[2025-05-11 02:17] VITALS: BP 137/85; PULSE 63; O2SAT 98
[2025-05-11] MEDS: HYDROmorphone HCL INJ (*CRX) 2 MG/ML VIAL 0.5 MG IV PUSH (02:47)
[2025-05-11 04:48] VITALS: BP 126/80; PULSE 63; RESP 18; O2SAT 99
== END 2025-05-11 04:49 | disposition home or self-care (01) ==
PROVIDERS: Emergency Provider Physician Assistant; PCP Internal Medicine
DX: S39.012A Strain of muscle, fascia and tendon of lower back, initial encounter (principal); S86.911A Strain of unspecified muscle(s) and tendon(s) at lower leg level, right leg, initial encounter; J45.909 Unspecified asthma, uncomplicated; D64.9 Anemia, unspecified; F32.A Depression, unspecified; F41.9 Anxiety disorder, unspecified; M17.11 Unilateral primary osteoarthritis, right knee; W17.89XA Other fall from one level to another, initial encounter
CPT/HCPCS: 73564; 74176; 96374; 96375; 99284; A9270; J1171; J1885; J2270; J2405

== ENCOUNTER 2025-09-23 18:22 | Emergency (ER) | payer BC, MEDICAID, SELFPAY ==
--- NOTE | ~2025-09-23 | XR_ITS ---
XR elbow RT min 3V INDICATION: pain x 1 day. fall . COMPARISON: None. FINDINGS: AP, lateral and oblique views of the right elbow demonstrate no acute fracture or dislocation. IMPRESSION: No acute fracture or dislocation. Reviewed, dictated and finalized at location [facility] [employer]
[2025-09-23 18:33] VITALS: BP 149/80; PULSE 73; RESP 20; TEMP 36.6; O2SAT 100
--- NOTE | 2025-09-23 18:39 | ED_ITS ---
HPI - General Adult General Chief complaint: Fall Stated complaint: FALL Time Seen by Provider: 09/23/25 18:33 Source: patient, RN notes reviewed and old records reviewed Mode of arrival: ambulatory Limitations: no limitations History of Present Illness HPI narrative: 30-year-old female presents to the [facility] with elbow pain. Patient states that she went to sit in a chair yesterday, fell with an outstretched arm on to the right arm. Continues to have right elbow pain, generalized tenderness. Treatments prior to arrival: NSAID Related Data Home Medications ?Medication ?Instructions ?Recorded ?Confirmed ?Last Taken ?Type ferrous gluconate 324 mg (38 mg mg 04/01/21 09/13/23 U nknown History iron) tablet hydrocodone 10 mg-acetaminophen tablet 05/09/25 Unkno wn History 325 mg tablet Allergies Allergy/AdvReac Type Severity Reaction Status Date / Time sulfamethoxazole Allergy Intermediate BLISTERS Verified 09/23/25 18:37 IN MOUTH trimethoprim Allergy Intermediate BLISTERS Verified 09/23/25 18:37 IN MOUTH Review of Systems Review of Systems: All systems reviewed & are unremarkable except as noted in HPI and below Constitutional: Constitutional: Reports no additional constitutional complaints Musculoskeletal: Musculoskeletal: Reports as per HPI and Reports arthralgias ( Right elbow) Integumentary/Breasts: Skin/Breast: Reports system reviewed and no additional complaints, except as docu PMFSH Past Medical History Medical History Prolapsed bladder Anxiety Depression UTI (urinary tract infection) Asthma Anemia receives iron infusions Surgical History Surgical History Hx of tubal ligation H/O dilation and curettage Hx of section Delivery by section Family History Family History Mother Heart disease Hypertension Social History Social History Smoking status: Never smoker Alcohol intake: never Substance use type: does not use Lack of Transportation: No Lack of Food: Never True Current Housing: I Have Housing Concerned About Future Housing: No Difficulty Paying Gas/Electric Bills: No Difficulty Paying for Meds: No Currently Unemployed: No Education: High School Diploma/GED Difficulty w/ Childcare or Family Care: No Living arrangements: with family Occupation/Education: unemployed Gender identity (if verbalized by the patient): Female Comments At the time of my signature, I reviewed and agree with the nursing past medical, surgical, social, and family history. There is no relevant family history pertinent to the patient complaint. Exam Const: General: cooperative, healthy appearing, comfortable, no acute distress, well developed, alert and well nourished Nutritional Appearance: well nourished and obese Orientation/consciousness: patient oriented x3 Limitations: no limitations HENMT: Head: normal to inspection Eyes: General: appearance normal, both eyes and all related structures Alignment and Position: alignment normal Neck: Neck: normal visual inspection, full ROM, no lymphadenopathy and no meningeal signs Chest: Chest palpation & inspection: normal inspection of the chest Resp: Effort & Inspection: normal respiratory effort and able to speak in complete sentences Auscultation: clear to auscultation bilaterally, no crackles, no rales, no rhonchi and no wheezes Cardio: Rate: regular rate Back/Spine/Pelvis: Back: No back tenderness Skin: General skin exam: normal color and no rashes or lesions noted Neuro: General: patient oriented x3, gait normal, moves all extremities and no meningeal signs Cognition (Neuro): normal cognition Speech: normal speech Gait exam (Neuro): Normal gait present Extrem: General: normal to inspection, full ROM, capillary refill normal and normal gait Right upper extremity: full ROM, shoulder/upper arm normal to inspection and normal ROM; no tenderness and no swelling, elbow/forearm tenderness and normal ROM; no swelling, no abrasions, no lacerations and no ecchymosis and wrist normal to inspection, normal ROM and normal vascular exam; no tenderness and no swelling Psych: Appearance: grossly normal and well kempt Mental Status: mental status grossly normal Speech and movement: Normal speech and movement present and Clear speech present Affect: normal affect Attitude: cooperative Course Course Level of Care: Express Care Visit Vital Signs Vital signs: Vital Signs Temperature 97.9 F 09/23/25 18:33 Pulse Rate 73 09/23/25 18:33 Respiratory Rate 20 09/23/25 18:33 Blood Pressure 149/80 H 09/23/25 18:33 Pulse Oximetry 100 09/23/25 18:33 Oxygen Delivery Room Air 09/23/25 18:33 Temperature 97.9 F 09/23/25 18:33 Pulse Rate 73 09/23/25 18:33 Respiratory Rate 20 09/23/25 18:33 Blood Pressure 149/80 H 09/23/25 18:33 Pulse Oximetry 100 09/23/25 18:33 Oxygen Delivery Room Air 09/23/25 18:33 reviewed MDM MDM Narrative Medical decision making narrative: patient sitting in exam room. Patient is nontoxic, vitals stable. Patient presents with elbow pain since yesterday. Reports that she went to sit in a ch air and fell sideways with and outstretched arm. Continues to have elbow pain. x-rays negative patient appropriate for outpatient treatment with close follow-up Discharge instructions reviewed with patient, as well as provided in writing per nursing staff. The instructions also include specific and strict return/GO TO THE ER as well as f/u information. All questions have been answered, and the patient deny any further questions with discharge and discharge plan. Some parts of this dictation were generated by voice recognition software and may contain typographical and/or grammatical inaccuracies. Differential Diagnosis Differential Diagnosis: Differential diagnostic considerations for upper extremity injury include sprain/strain of wrist, fracture of wrist, finger sprain, dislocation of finger, fracture of hand, dislocation of shoulder, fracture of humerus, fracture of clavicle, laceration, tendon injury, carpal tunnel syndrome.? Imaging Data Radiologist's impression: ITS Impressions Elbow X-Ray 09/23/25 19:20 IMPRESSION: No acute fracture or dislocation. XR elbow RT min 3V INDICATION: pain x 1 day. fall . COMPARISON: None. FINDINGS: AP, lateral and oblique views of the right elbow demonstrate no acute fracture or dislocation. IMPRESSION: No acute fracture or dislocation. Discharge Plan Discharge Clinical Impression: Elbow pain, right Patient Disposition: Home Condition: Stable Instructions: Antibiotic Form, Elbow Strain (ED) Additional Instructions: Your Xray did not show a fracture. Ice should be applied to help reduce swelling. It can be used for 20 to 30 minutes, every 2-3 hours while awake. Do not apply ice directly to your skin. take ibuprofen 600 mg every 8 hours Please schedule a follow-up visit with your personal physician for further evaluation and treatment within 2 weeks especially if symptoms persist. For new or worsening symptoms go directly to the emergency room Patient Language: Polish Prescriptions: No Action hydrocodone-acetaminophen 10-325 mg tablet cyclobenzaprine 10 mg tablet 10 mg PO TID PRN (Reason: muscle spasm) Qty: 14 0RF ferrous gluconate 324 mg (38 mg iron) tablet albuterol sulfate 90 mcg/actuation HFA aerosol inhaler 2 puff inhalation QID PRN (Reason: shortness of breath or wheezing) Qty: 8.5 0RF hydrocodone-acetaminophen 5-325 mg tablet 1 tablet PO Q6H PRN (Reason: pain) Qty: 10 0RF ondansetron 4 mg tablet,disintegrating 4 mg PO Q6H PRN (Reason: nausea and vomiting) Qty: 10 0RF lidocaine 5 % adhesive patch,medicated 1 patch topical DAILY Qty: 15 0RF Rx Instructions: leave on most painful area for up to 12 hrs cyclobenzaprine 5 mg tablet 5 mg PO TID PRN (Reason: muscle spasm) Qty: 15 0RF Follow-up/Referrals: Mandy,MD Bryanna [Primary Care Provider, Unknown] - 2 Weeks Clinical Impression: Elbow pain, right Stand Alone Forms: Work/School Release IP Time of Disposition: 19:27
== END 2025-09-23 19:32 | disposition home or self-care (01) ==
PROVIDERS: Emergency Provider Nurse Practitioner; PCP Internal Medicine
DX: M25.521 Pain in right elbow (principal); J45.909 Unspecified asthma, uncomplicated; D64.9 Anemia, unspecified
CPT/HCPCS: 73080; 99213; G0463